=== PATIENT | female | born 1985 | race Caucasian/White ===

== ENCOUNTER → 2016-09-23 | Outpatient (CLI) | payer MEDICARE, OTHER ==
[2016-09-23 17:01] VITALS: BMI 58.3
[2016-09-23 17:51] LABS: CHCM 31.4; HDW 2.91; HGB 11.8 gm/dL (11.4-16.0); Hypochromasia Slight; MCH 23.8 pg (25.0-35.0); MCV 76.9 fL (80.0-100.0); Mean Platelet Volume 6.5; Microcytosis Slight; RBC 4.94 m/uL (3.80-5.40); RDW 15.5 % (11.5-15.5); WBC 10.5 k/uL (3.8-10.6)
[2016-09-23 18:06] LABS: Partial Thromboplastin Time 24.9 sec (22.0-30.0)
[2016-09-23 18:08] LABS: ALT 31 U/L (9-52); AST 17 U/L (14-36); Alkaline Phosphatase 85 U/L (38-126); Anion Gap 13 mmol/L; Blood Urea Nitrogen 14 mg/dL (7-17); Carbon Dioxide 25 mmol/L (22-30); Chloride 105 mmol/L (98-107); Cholesterol 149 mg/dL (<200); Glucose 91 mg/dL (74-99); HDL Cholesterol 41 mg/dL (40-60); Iron 29 ug/dL (37-170); Non-African American GFR(MDRD) >60 (>60 ml/min/1.73 sqM); Phosphorous 3.9 mg/dL (2.5-4.5); Potassium 4.1 mmol/L (3.5-5.1); Sodium 143 mmol/L (137-145); Total Bilirubin 0.4 mg/dL (0.2-1.3); Total Protein 7.8 g/dL (6.3-8.2); Triglycerides 118 mg/dL (<150)
[2016-09-23 18:19] LABS: % Iron Saturation 10.3 % (20-50); Prealbumin 18 mg/dL (18-36); Total Iron Binding Capacity 281 ug/dL (265-497)
[2016-09-23 18:59] LABS: Hemoglobin A1C 5.3 % (4.2-6.1)
[2016-09-23 19:14] LABS: Vitamin B12 608 pg/mL (239-931)
--- NOTE | 2016-09-25 11:11 | CONS ---
DATE OF CONSULTATION: 09/23/2016 CHIEF COMPLAINT: Bariatric assessment. HISTORY OF PRESENT ILLNESS: Lety De La Rosa is a 31-year-old female who is status post sleeve gastrectomy in [facility] in 2013. At her height of 5 feet 10-1/4 inch, her highest weight was 489 pounds. Today she comes weighing 409 pounds. She has maintained an 80 pound weight loss since her procedure 2 to 3 years ago. Her ideal body weight is 173 pounds. Body mass index has been reduced from 69.3 down to 58. She still is 236 pound overweight. Now she presents to resume care at a bariatric center. She reports epigastric abdominal pain. She denies any dysphagia with solid foods. She does report eating high carbohydrate, high caloric foods. Her lowest weight since her sleeve has been 400 pounds, now with weight regain. Her personal goal is to get down between 160 to 173 pounds. Now she presents for further evaluation and management. PAST MEDICAL HISTORY: 1. Morbid obesity. 2. Iron deficiency anemia. 3. Hypertensive heart disease. 4. Gastroesophageal reflux disease. 5. Depression. 6. Asthma. PAST SURGICAL HISTORY: 1. Sleeve gastrectomy in July 2013. 2. section. 3. Cholecystectomy. MEDICATIONS: 1. Multivitamin. 2. Iron. 3. Lasix. 4. Omeprazole. 5. Vitamin D. 6. Gabapentin. 7. Cymbalta. 8. Benjamin 10. ALLERGIES: IBUPROFEN. 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 FAMILY HISTORY: Pertinent for diabetes including morbid obesity. REVIEW OF SYSTEMS: CONSTITUTIONAL: [place] body weight of 173 pounds for her 5 foot 10-1/4 inch frame. Highest weight of 489 pounds. Lowest weight of 400 pounds after her sleeve. She has gained 9 pounds. Present weight of 409 pounds. Body mass index reduced from 69.3 down to 58. HEENT: She wears glasses. No reports of troubles with hearing or nasal drainage. No reports of active dysphagia to solid foods. RESPIRATORY: Has prior history of obstructive sleep apnea. Denies any active dyspnea on exertion. CARDIOVASCULAR: History of hypertension. No recent palpitations. GASTROINTESTINAL: History gastroesophageal reflux disease. Gallbladder is already removed. Denies any fatty food intolerance. MUSCULOSKELETAL: Diffuse osteoarthritis especially of the knees and hips. NEURO: No reports of stroke or seizure disorder. PSYCH: No reports of depression or suicidal ideation. HEMATOLOGIC: Denies any DVTs. PHYSICAL EXAM: VITAL SIGNS: Within normal limits. GENERAL: Well-developed, pleasant female in no acute distress. HEENT: No scleral icterus. Extraocular movements grossly intact. No nasal drainage. NECK: Supple without lymphadenopathy. CHEST: Nonlabored respirations, equal bilateral excursions. CARDIOVASCULAR: Regular rate and rhythm. ABDOMEN: Obese, protuberant, soft. Focal tenderness along the epigastrium. NEURO: No focal or lateralizing signs. Cranial nerves II through XII grossly within normal limits. PSYCH: Appropriate affect. Alert and oriented to person, place, and time. LABS: Bariatric metabolic panel obtained demonstrating hemoglobin low at 11.8. MCV low at 76.9. MCHC low at 23.8. Iron is low at 29. Percent iron saturation was low at 10.3. Vitamin D is low at 23.5. Trace elements are pending. ASSESSMENT: 1. Morbid obesity due to excess calories. 2. Body mass index reduced from 69.3 to 58. 3. Status post sleeve gastrectomy, now with weight gain. 4. Hypertension. 5. Right upper quadrant pain. 6. Epigastric abdominal pain. 7. Dietary surveillance and counseling. 8. Iron deficiency anemia. 9. Vitamin D deficiency. PLAN: 1. She is obtaining bariatric metabolic panel with findings consistent of iron deficiency anemia as well as Vitamin D deficiency. As she is a sleeve gastrectomy patient I recommend iron infusion therapy for absorption. 2. I have gone over her food choices, which are high carbohydrate foods. She reports that she is watching calories and is not really focused on a consistent amount of protein. I have asked her to really focus on eating her protein rather than just relying on protein shakes. 3. She requires re-education regarding her bariatric lifestyle for which weight loss can still be attainable with strict monitoring and surveillance. 4. She is seeking to lose over 200+ pounds. As she reports epigastric abdominal pain I recommend proceeding with an upper endoscopy. I have reviewed with her that potentially hiatal hernia should be present, then she will likely need surgical correction. 5. Goal protein intake was again re-iterated to be at least 80 grams daily. 6. Recommend follow-up in approximately 3 weeks with a dietary food journal. [facility]
[2016-10-01 18:11] LABS: Selenium 160 mcg/L (63-160)
== END | disposition home or self-care (01) ==
LOC: BARWHC3 15:00
PROVIDERS: ATTEND Surgery Plastic and Reconstructive Surgery
DX: Z48.815 Encounter for surgical aftercare following surgery on the digestive system (principal); E66.01 Morbid (severe) obesity due to excess calories; Z68.43 Body mass index [BMI] 50.0-59.9, adult; Z98.84 Bariatric surgery status; I10 Essential (primary) hypertension; R10.11 Right upper quadrant pain; R10.13 Epigastric pain; Z71.3 Dietary counseling and surveillance; E55.9 Vitamin D deficiency, unspecified; D50.9 Iron deficiency anemia, unspecified; Z79.899 Other long term (current) drug therapy
CPT/HCPCS: 84255; 84134; 84425; 80061; 80053; 82607; 82728; 83036; 82525; 82746; 83540; 83550; 83735; 84100; 84443; 84590; 84630; 85027; 85610; 85730; 82306; 83970; 36415; G0463; 99211

== ENCOUNTER → 2016-10-01 | Outpatient (CLI) | payer MEDICARE, OTHER ==
--- NOTE | 2016-10-01 12:16 | FL ---
EXAMINATION TYPE: FL barium swallow DATE OF EXAM: 10/01/2016 11:28 AM CLINICAL HISTORY: R13.10 DYSPHAGIA,R10.84 ABDOMINAL PAIN Contrast: Omnipaque 350 50 mL The patient ingested contrast without difficulty or delay. Noted are postsurgical changes of gastric sleeve. There is no evidence for leak or obstruction. Contrast is noted within the duodenum. S zoey contrast cervical esophagram reveals no evidence for aspiration or penetration. No evidence for mass or obstruction. No extrinsic mass effect. IMPRESSION: gastric sleeve without evidence for obstruction or leak at this point in time.
== END | disposition home or self-care (01) ==
LOC: RADFLWHC 10:53
PROVIDERS: ATTEND Surgery Plastic and Reconstructive Surgery
DX: R13.10 Dysphagia, unspecified (principal); R10.84 Generalized abdominal pain
CPT/HCPCS: 74220

== ENCOUNTER 2016-10-05 10:49 | Day surgery (SDC) | payer MEDICARE, OTHER ==
[2016-10-02 09:06] VITALS: BMI 58.1
--- NOTE | 2016-10-05 06:26 | P.GSHP ---
History of Present Illness H&P Date: 10/05/16 CHIEF COMPLAINT: GERD HISTORY OF PRESENT ILLNESS: The patient is a 31-year-old male who presents reports gastroesophageal reflux disease with epigastric abdominal pain. Upper endoscopy was offered for further evaluation and management. PAST MEDICAL HISTORY: Please see list. PAST SURGICAL HISTORY: Please see list. MEDICATIONS: Please see list. ALLERGIES: Please see list. SOCIAL HISTORY: No illicit drug use FAMILY HISTORY: No reports of Crohn disease or ulcerative colitis. REVIEW OF ORGAN SYSTEMS: CONSTITUTIONAL: No reports of fevers or chills. GI: Denies any blood in stools or constipation. PHYSICAL EXAM: VITAL SIGNS: Stable GENERAL: Well-developed and pleasant in no acute distress. HEENT: No scleral icterus. Extraocular movements grossly intact. Moist buccal mucosa. NECK: Supple without lymphadenopathy. CHEST: Unlabored respirations. Equal bilateral excursions. CARDIOVASCULAR: Regular rate and rhythm. Distal 2+ pulses. ABDOMEN: Soft, nondistended. MUSCULOSKELETAL: No clubbing, cyanosis, or edema. ASSESSMENT: 1. Gastroesophageal reflux disease 2. Epigastric abdominal pain. PLAN: 1. Recommend proceeding with an upper endoscopy with balloon dilation. Past Medical History Past Medical History: Asthma, GERD/Reflux, Hypertension History of Any Multi-Drug Resistant Organisms: None Reported Past Surgical History: Bariatric Surgery, Section, Cholecystectomy Additional Past Surgical History / Comment(s): sleeve gastrectomy 11-13 Past Anesthesia/Blood Transfusion Reactions: No Reported Reaction Past Psychological History: Depression Smoking Status: Never smoker Past Alcohol Use History: None Reported Past Drug Use History: None Reported - Past Family History Mother Family Medical History: No Reported History Medications and Allergies Home Medications Medication Instructions Recorded Confirmed Type DULoxetine HCL [Cymbalta] 1 tab PO DAILY 09/23/16 10/02/16 History Furosemide [Lasix] 1 tab PO DAILY 09/23/16 10/02/16 History Gabapentin 1 tab PO TID 09/23/16 10/02/16 History HYDROcodone/APAP 10-325MG [[place] 1 tab PO TID 09/23/16 10/02/16 History 10-325] Multivitamins, Thera [Multivitamin] 1 tab PO DAILY 09/23/16 10/02/16 History Omeprazole 1 tab PO BID 09/23/16 10/02/16 History Ergocalciferol [Vitamin D2 50,000 unit PO TH 10/02/16 10/02/16 History (DRISDOL)] Allergies Allergy/AdvReac Type Severity Reaction Status Date / Time ibuprofen [From Motrin] Allergy Swelling Verified 10/02/16 08:41
[~2016-10-05 10:49] MED LIST: LACTATED RINGERS 1,000 ML IV SCH
[2016-10-05 11:10] VITALS: RESP 18; TEMP 97.1
[2016-10-05] MEDS ORDERED: SODIUM CHLORIDE 0.9% 2,000 ML IV ONE (11:11)
[2016-10-05] MEDS ORDERED: LIDOCAINE 1% 20 ML VIAL (10MG/ML) FOR IV START INTRADERMA ONE (11:18)
[2016-10-05] MEDS ORDERED: LIDOCAINE 1% INJ 10MG/ML (20 ML MDV) ONE (11:29)
[2016-10-05] MEDS ORDERED: MIDAZOLAM 2 MG/2 ML VIAL ONE (11:29)
[2016-10-05] MEDS ORDERED: fentaNYL (PF) 50 MCG/ML 2 ML AMP ONE (11:29)
[2016-10-05] MEDS ORDERED: KETAMINE 10 MG/ML 20 ML VIAL ONE (11:29)
[2016-10-05] MEDS ORDERED: PROPOFOL 10 MG/ML 20 ML VIAL IV ONE (11:29)
--- NOTE | 2016-10-05 11:47 | P.PCN ---
Date of Procedure: 10/05/16 Description of Procedure: PREOPERATIVE DIAGNOSIS: Status post sleeve gastrectomy. Gastroesophageal reflux disease. Epigastric abdominal pain. POSTOPERATIVE DIAGNOSIS: Status post sleeve gastrectomy. Gastroesophageal reflux disease. Epigastric abdominal pain. Erosive esophagitis, chronic. Diaphragmatic hiatal hernia without obstruction. Chronic superficial gastritis. OPERATION: Esophagogastroduodenoscopy with cold forceps biopsies along the antrum. SURGEON: Natalia Ambrocio MD ANESTHESIA: MAC. INDICATIONS: The patient is a 31-year-old female who presents with a history of sleeve gastrectomy with abdominal pain. She is over 3 years out from her bariatric procedure. Benefits and risks of the procedure were described. Informed consent was obtained. DESCRIPTION: The patient was brought into the endoscopy suite and laid in the left lateral decubitus position. An Olympus gastroscope was passed along the posterior oropharynx down to the distal esophagus where the squamocolumnar junction was at 40 centimeters from the incisors remarkable for chronic erosive esophagitis, LA grade A without ulceration. The stomach was entered where she had a 2-cm hiatal hernia with a diaphragmatic hiatus found at 43 cm. The sleeve reservoir moderately large allowing easy retroflexion of the scope to view the lower esophageal valve. Chronic gastritis albeit mild was found along the antrum with cold biopsies obtained. Retained gastric cardia was identified. The first through third portion of the duodenum was examined and unremarkable. The scope again had easily retroflexed along the antrum. The stomach was desufflated. The patient tolerated the procedure well. FINDINGS: No acute ulceration found along her sleeve. No corkscrewing sleeve gastrectomy. Squamocolumnar junction at 40 cm from the incisors. Diaphragmatic hiatus at 43 cm. Moderate large gastric reservoir with prior history of sleeve gastrectomy allowing easy retroflexion of the gastroscope to view the lower esophageal valve. Hiatal hernia 3 cm, fixed. LA grade A erosive esophagitis. No active duodenitis. Chronic gastritis. RECOMMENDATIONS: Upper endoscopy as needed. May benefit from antireflux operation. Continue with current therapy. Plan - Discharge Summary Discharge Medication List DULoxetine HCL [Cymbalta] 1 tab PO DAILY 09/23/16 [History] Furosemide [Lasix] 1 tab PO DAILY 09/23/16 [History] Gabapentin 1 tab PO TID 09/23/16 [History] HYDROcodone/APAP 10-325MG [[place] 10-325] 1 tab PO TID 09/23/16 [History] Multivitamins, Thera [Multivitamin] 1 tab PO DAILY 09/23/16 [History] Omeprazole 1 tab PO BID 09/23/16 [History] Zinc Gluconate [Zinc] 50 mg PO DAILY@1200 #60 tablet 09/30/16 [Rx] Ergocalciferol [Vitamin D2 (DRISDOL)] 50,000 unit PO TH 10/02/16 [History] Follow up Appointment(s)/Referral(s): Natalia Ambrocio MD [STAFF PHYSICIAN] - 10/21/16 Patient Instructions/Handouts: *[facility] - (Anesthesia) Endoscopy Discharge Instructions, Hiatal Hernia (DC), Upper Endoscopy (GEN) Discharge Disposition: HOME SELF-CARE
[2016-10-05] MEDS ORDERED: LACTATED RINGERS 1,000 ML IV ONE (12:30)
[2016-10-05] MEDS ORDERED: SODIUM CHLORIDE 0.9% 1,000 ML IV ONE ×2 (12:30→14:09)
[2016-10-05 12:36] VITALS: PULSE 56
[2016-10-05 13:16] VITALS: BP 117/71
== END 2016-10-05 15:54 | disposition home or self-care (01) ==
LOC: ORWHC2ENDO 10:49
PROVIDERS: ATTEND Surgery Plastic and Reconstructive Surgery
DX: K29.30 Chronic superficial gastritis without bleeding (principal); K21.0 Gastro-esophageal reflux disease with esophagitis; K44.9 Diaphragmatic hernia without obstruction or gangrene; Z98.84 Bariatric surgery status; I10 Essential (primary) hypertension; J45.909 Unspecified asthma, uncomplicated; F32.9 Major depressive disorder, single episode, unspecified; Z79.891 Long term (current) use of opiate analgesic; Z79.899 Other long term (current) drug therapy; Z88.8 Allergy status to other drugs, medicaments and biological substances
CPT/HCPCS: 81025; 88305; 88342; 43239; J2250; J2001; J3010; J2704

== ENCOUNTER → 2016-10-14 | Outpatient (CLI) | payer MEDICARE, OTHER ==
[2016-10-14 16:00] VITALS: BP 138/89; PULSE 79; RESP 18; TEMP 98; BMI 58.8
--- NOTE | 2016-10-18 17:50 | P.PN ---
Progress Note - Text DATE OF SERVICE: 10/14/2016 CHIEF COMPLAINT: Chronic abdominal pain following sleeve gastrectomy. HISTORY OF PRESENT ILLNESS: Lety De La Rosa is a 31-year-old female who reports having a sleeve gastrectomy performed at the [facility] in 2013. Her father is at bedside. She actually had gone to the emergency room approximately a little over 1 to 2 weeks ago after start of iron IV infusion. She had immediate anaphylactic reaction and as a result was treated. Separately, she reports chronic epigastric abdominal pain especially gastroesophageal reflux disease. She takes chronic pain meds as a result from her chronic epigastric abdominal pain. Separately, she reports inadequate protein intake. She has difficulty with her protein shakes. Her highest weight for her 5 feet 10-1/4 inches frame is 489 pounds. Today she comes in weighing 413 pounds. She has gained at least another 3 pounds in 2 to 3 weeks. Her ideal body weight is 173 pounds. She is still 240 pounds overweight. She has only achieved 24% excess weight loss. Body mass index is reduced from 70 down to 58.9. Total BMI point reduction is 11 points. Now she presents for further surgical intervention. She has also completed an upper endoscopy with findings consistent with a malfunction of her sleeve as well. PAST MEDICAL HISTORY: 1. Morbid obesity. 2. Iron deficiency anemia. 3. Hypertensive heart disease. 4. Gastroesophageal reflux disease. 5. Depression. 6. Asthma. 7. Chronic pain. PAST SURGICAL HISTORY: 1. Sleeve gastrectomy in July 2013. 2. section. 3. Cholecystectomy. 4. Upper endoscopy. MEDICATIONS: 1. Multivitamin. 2. Iron. 3. Lasix. 4. Omeprazole. 5. Vitamin D. 6. Gabapentin. 7. Cymbalta. 8. [place] 10. ALLERGIES: IBUPROFEN. 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 FAMILY HISTORY: Pertinent for diabetes including morbid obesity. REVIEW OF SYSTEMS: GASTROINTESTINAL: Has severe gastroesophageal reflux disease including diaphragmatic hiatal hernia. Cholecystectomy already performed. CONSTITUTIONAL: Current weight 413 pounds. Weight gain of 3 pounds in 3 weeks. Total maintained weight loss of only 76 pounds. Percent excess weight loss is 24%. Body mass index reduced from 70 down to 58.9. Total BMI point reduction of 11 points. HEENT: She wears glasses. No reports of troubles with hearing or nasal drainage. No reports of active dysphagia to solid foods. RESPIRATORY: Has prior history of obstructive sleep apnea. Denies any active dyspnea on exertion. CARDIOVASCULAR: History of hypertension. No recent palpitations. MUSCULOSKELETAL: Diffuse osteoarthritis especially of the knees and hips. NEURO: No reports of stroke or seizure disorder. PSYCH: No reports of depression or suicidal ideation. HEMATOLOGIC: Denies any DVTs. PHYSICAL EXAM: VITAL SIGNS: 98.0, 79, 18, 138/89, 5 feet 10-1/4 inches, 413 pounds. Body mass index of 58.9. ABDOMEN: Mild tenderness along the epigastrium. No diffuse peritonitis. Moderate centripetal obesity with moderate size pannus. GENERAL: Well-developed, pleasant female in no acute distress. HEENT: No scleral icterus. Extraocular movements grossly intact. No nasal drainage. NECK: Supple without lymphadenopathy. CHEST: Nonlabored respirations, equal bilateral excursions. CARDIOVASCULAR: Regular rate and rhythm. NEURO: No focal or lateralizing signs. Cranial nerves II through XII grossly within normal limits. PSYCH: Appropriate affect. Alert and oriented to person, place, and time. LABS: Bariatric metabolic panel is reviewed demonstrating hemoglobin was low at 11.8. MCV was low at 76.9. MCH is low at 23.8. Hyperchromasia identified. Magnesium was normal at 2.0. Iron was low at 29. Percent iron saturation was low at 10.3. Vitamin A was not obtained. Vitamin D was low at 23.5. Zinc was low at 59. ASSESSMENT: 1. Morbid obesity due to excess calories. 2. Body mass index reduced from 70 to 58.9. 3. Weight gain following bariatric procedure. 4. Epigastric abdominal pain. 5. 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 6. Gastroesophageal reflux disease. 7. Hypertensive heart disease. 8. History of obstructive sleep apnea. 9. Chronic pain syndrome. 10. Diaphragmatic hiatal hernia. 11. Iron deficiency anemia. 12. Vitamin D deficiency. 13. Zinc deficiency. 14. Dietary surveillance and counseling. PLAN: 1. She has just started on zinc including vitamin D supplement. 2. As she has mechanical malfunction of her sleeve gastrectomy, recommend corrective procedure. 3. Alternatives including revision of her sleeve was described, however, given the severity of her gastroesophageal reflux disease alternatives such as a Savi-en-Y gastric bypass was reviewed. Upon discussion with her family, she has elected for revision to a Savi-en-Y gastric bypass to also address her underlying gastroesophageal reflux disease and correction of her diaphragmatic hiatal hernia. 4. She needs structured dietary surveillance and counseling. 5. In the interim, primarily liquids or blenderized foods is advised. 6. Recommend followup with the bariatric dietitian as well.
== END | disposition home or self-care (01) ==
LOC: BARWHC3 14:12
PROVIDERS: ATTEND Surgery Plastic and Reconstructive Surgery
DX: Z48.815 Encounter for surgical aftercare following surgery on the digestive system (principal); E66.01 Morbid (severe) obesity due to excess calories; Z68.43 Body mass index [BMI] 50.0-59.9, adult; Z98.84 Bariatric surgery status; Z79.899 Other long term (current) drug therapy; Z88.8 Allergy status to other drugs, medicaments and biological substances; R10.13 Epigastric pain; T85.9XXA Unspecified complication of internal prosthetic device, implant and graft, initial encounter; K21.9 Gastro-esophageal reflux disease without esophagitis; I11.9 Hypertensive heart disease without heart failure; G47.33 Obstructive sleep apnea (adult) (pediatric); G89.4 Chronic pain syndrome; K44.9 Diaphragmatic hernia without obstruction or gangrene; D50.9 Iron deficiency anemia, unspecified; E55.9 Vitamin D deficiency, unspecified; E60 Dietary zinc deficiency; F32.9 Major depressive disorder, single episode, unspecified
CPT/HCPCS: 99211

== ENCOUNTER 2016-10-16 07:37 | Observation (INO) | payer MEDICARE, OTHER ==
[2016-10-16] MEDS ORDERED: SODIUM CHLORIDE 0.9% 2,000 ML IV STA (08:03)
[2016-10-16] MEDS ORDERED: SODIUM CHLORIDE 0.9% 1,000 ML IV STA (08:03)
[2016-10-16] MEDS ORDERED: HYDROmorphone 1 MG/ML 1 ML SYRINGE IVP STA (08:03)
[2016-10-16] MEDS ORDERED: RX INFO: IV CONTRAST WAS GIVEN 1 EACH MISC MISCELLANE PRN (08:04)
[2016-10-16] MEDS ORDERED: IOHEXOL 350 MG/ML 25 ML BOTTLE (ORAL USE) PO PRN (08:04)
--- NOTE | 2016-10-16 08:09 | ED ---
Abdominal Pain HPI - General Chief Complaint: Abdominal Pain Stated Complaint: abd pain Time Seen by Provider: 10/16/16 07:50 Source: patient, family, RN/MD, RN notes reviewed Mode of arrival: ambulatory Limitations: no limitations - History of Present Illness Initial Comments: This is a 31-year-old female with a history of a gastric sleeve done about 3 years ago in [facility] who was apparently has had episodes of nausea vomiting since that time and presents today because of intractable nausea vomiting upper abdominal pain and dehydration symptoms. Patient was evaluated by Dr. Powell about a week ago with a EGD. I did discuss the case with Dr. Powell prior to evaluation. She's had very minimal weight loss since the gastric sleeve 3 years ago. She states that he likely eat or drink she hurts to talk. She's had diarrhea. She doesn't history of hypertension asthma GERD and hiatal hernia. MD Complaint: abdominal pain, other - Related Data Home Medications Medication Instructions Recorded Confirmed DULoxetine HCL [Cymbalta] 30 mg PO DAILY 09/23/16 10/16/16 Furosemide [Lasix] 40 mg PO DAILY 09/23/16 10/16/16 Gabapentin 600 mg PO TID 09/23/16 10/16/16 HYDROcodone/APAP 10-325MG [[place] 1 tab PO TID 09/23/16 10/16/16 10-325] Multivitamins, Thera [Multivitamin] 1 tab PO DAILY 09/23/16 10/16/16 Omeprazole 20 mg PO BID 09/23/16 10/16/16 Ergocalciferol [Vitamin D2 50,000 unit PO TH 10/02/16 10/16/16 (DRISDOL)] Previous Rx's Medication Instructions Recorded Zinc Gluconate [Zinc] 50 mg PO DAILY@1200 #60 tablet 09/30/16 Allergies Allergy/AdvReac Type Severity Reaction Status Date / Time ibuprofen [From Motrin] Allergy Swelling Verified 10/16/16 07:45 iron Allergy Anaphylaxis Verified 10/16/16 07:45 Review of Systems ROS Statement: Those systems with pertinent positive or pertinent negative responses have been documented in the HPI. ROS Other: All systems not noted in ROS Statement are negative. Past Medical History Past Medical History: Asthma, GERD/Reflux, Hypertension History of Any Multi-Drug Resistant Organisms: None Reported Past Surgical History: Bariatric Surgery, Section, Cholecystectomy Additional Past Surgical History / Comment(s): sleeve gastrectomy 11-13, HIATAL HERNIA Past Anesthesia/Blood Transfusion Reactions: No Reported Reaction Past Psychological History: Depression Smoking Status: Never smoker Past Alcohol Use History: None Reported Past Drug Use History: None Reported General Exam - General Exam Comments Initial Comments: This is a well-developed morbidly obese female actively retching during the exam. Limitations: no limitations General appearance: alert, in no apparent distress Head exam: Present: atraumatic, normocephalic, normal inspection Eye exam: Present: normal appearance, PERRL, EOMI. Absent: scleral icterus, conjunctival injection, periorbital swelling ENT exam: Present: mucous membranes dry Neck exam: Present: normal inspection, other (No stridor JVD or bruits). Absent : tenderness, meningismus, lymphadenopathy Respiratory exam: Present: normal lung sounds bilaterally. Absent: respiratory distress, wheezes, rales, rhonchi, stridor Cardiovascular Exam: Present: normal rhythm, tachycardia, normal heart sounds. Absent: systolic murmur, diastolic murmur, rubs, gallop, clicks GI/Abdominal exam: Present: soft, tenderness (Epigastric tenderness no guarding or rebound she does demonstrate morgue obesity.), normal bowel sounds. Absent: distended, guarding, rebound, rigid, bruit, pulsatile mass Rectal exam: Present: deferred Extremities exam: Present: normal inspection, full ROM, normal capillary refill. Absent: tenderness, pedal edema, joint swelling, calf tenderness Back exam: Present: normal inspection Neurological exam: Present: alert, oriented X3, CN II-XII intact Psychiatric exam: Present: anxious Skin exam: Present: warm, dry, intact, normal color. Absent: rash Course Vital Signs 10/16/16 10/16/16 10/16/16 07:40 10:01 13:06 Temperature 97.8 F 98.5 F Pulse Rate 115 H 94 88 Respiratory 20 18 18 Rate Blood Pressure 163/67 124/62 148/66 O2 Sat by Pulse 100 95 96 Oximetry - Reevaluation(s) Reevaluation #1: 10/16/16 09:39 Patient initially complains some chest pain after the Dilaudid was given it quickly resolved EKG shows no acute changes other than slight tachycardia. Medical Decision Making - Medical Decision Making Patient was reevaluated and Dr. Powell did come to see the patient on 2 occasions the patient will be admitted for observation for IV hydration and pain control nausea control. - Lab Data Result diagrams: 10/16/16 08:14 10/16/16 08:14 Lab Results 10/16/16 10/16/16 10/16/16 Range/Units 08:14 08:14 08:14 WBC 9.0 (3.8-10.6) k/uL RBC 5.83 H (3.80-5.40) m/uL Hgb 13.8 (11.4-16.0) gm/dL Hct 44.4 (34.0-46.0) % MCV 76.1 L (80.0-100.0) fL MCH 23.6 L (25.0-35.0) pg MCHC 31.0 (31.0-37.0) g/dL RDW 15.6 H (11.5-15.5) % Plt Count 243 (150-450) k/uL Neutrophils % 87 % Lymphocytes % 5 % Monocytes % 4 % Eosinophils % 1 % Basophils % 0 % Neutrophils # 7.8 H (1.3-7.7) k/uL Lymphocytes # 0.5 L (1.0-4.8) k/uL Monocytes # 0.4 (0-1.0) k/uL Eosinophils # 0.1 (0-0.7) k/uL Basophils # 0.0 (0-0.2) k/uL Hypochromasia Moderate Microcytosis Slight PT (9.0-12.0) sec INR (<1.1) APTT (22.0-30.0) sec Sodium 144 (137-145) mmol/L Potassium 4.3 (3.5-5.1) mmol/L Chloride 103 (98-107) mmol/L Carbon Dioxide 27 (22-30) mmol/L Anion Gap 14 mmol/L BUN 16 (7-17) mg/dL Creatinine 0.74 (0.52-1.04) mg/dL Est GFR (MDRD) Af Amer >60 (>60 ml/min/1.73 sqM) Est GFR (MDRD) Non-Af >60 (>60 ml/min/1.73 sqM) Glucose 124 H (74-99) mg/dL Plasma Lactic Acid Brad (0.7-2.0) mmol/L Calcium 9.4 (8.4-10.2) mg/dL Magnesium 1.9 (1.6-2.3) mg/dL Total Bilirubin 1.0 (0.2-1.3) mg/dL AST 18 (14-36) U/L ALT 28 (9-52) U/L Alkaline Phosphatase 104 (38-126) U/L Total Creatine Kinase 74 (30-135) U/L CK-MB (CK-2) <0.2 (0.0-2.4) ng/mL CK-MB (CK-2) Rel Index Troponin I <0.012 (0.000-0.034) ng/mL Total Protein 8.6 H (6.3-8.2) g/dL Albumin 4.5 (3.5-5.0) g/dL Amylase 59 (30-110) U/L Lipase 173 (23-300) U/L Urine Color Urine Appearance (Clear) Urine pH (5.0-8.0) Ur Specific [place] (1.001-1.035) Urine Protein (Negative) Urine Glucose (UA) (Negative) Urine Ketones (Negative) Urine Blood (Negative) Urine Nitrate (Negative) Urine Bilirubin (Negative) Urine Urobilinogen (<2.0) mg/dL Ur Leukocyte Esterase (Negative) Urine RBC (0-5) /hpf Urine WBC (0-5) /hpf Ur Squamous Epith Cells (0-4) /hpf Urine Bacteria (None) /hpf Urine Mucus (None) /hpf Urine HCG, Qual (Not Detectd) C. difficile (EIA) Intrp (Negative) 10/16/16 10/16/16 10/16/16 Range/Units 08:14 09:52 10:32 WBC (3.8-10.6) k/uL RBC (3.80-5.40) m/uL Hgb (11.4-16.0) gm/dL Hct (34.0-46.0) % MCV (80.0-100.0) fL MCH (25.0-35.0) pg MCHC (31.0-37.0) g/dL RDW (11.5-15.5) % Plt Count (150-450) k/uL Neutrophils % % Lymphocytes % % Monocytes % % Eosinophils % % Basophils % % Neutrophils # (1.3-7.7) k/uL Lymphocytes # (1.0-4.8) k/uL Monocytes # (0-1.0) k/uL Eosinophils # (0-0.7) k/uL Basophils # (0-0.2) k/uL Hypochromasia Microcytosis PT 10.8 (9.0-12.0) sec INR 1.1 (<1.1) APTT 25.1 (22.0-30.0) sec Sodium (137-145) mmol/L Potassium (3.5-5.1) mmol/L Chloride (98-107) mmol/L Carbon Dioxide (22-30) mmol/L Anion Gap mmol/L BUN (7-17) mg/dL Creatinine (0.52-1.04) mg/dL Est GFR (MDRD) Af Amer (>60 ml/min/1.73 sqM) Est GFR (MDRD) Non-Af (>60 ml/min/1.73 sqM) Glucose (74-99) mg/dL Plasma Lactic Acid Brad 1.1 (0.7-2.0) mmol/L Calcium (8.4-10.2) mg/dL Magnesium (1.6-2.3) mg/dL Total Bilirubin (0.2-1.3) mg/dL AST (14-36) U/L ALT (9-52) U/L Alkaline Phosphatase (38-126) U/L Total Creatine Kinase (30-135) U/L CK-MB (CK-2) (0.0-2.4) ng/mL CK-MB (CK-2) Rel Index Troponin I (0.000-0.034) ng/mL Total Protein (6.3-8.2) g/dL Albumin (3.5-5.0) g/dL Amylase (30-110) U/L Lipase (23-300) U/L Urine Color Yellow Urine Appearance Cloudy H (Clear) Urine pH 6.5 (5.0-8.0) Ur Specific [place] 1.020 (1.001-1.035) Urine Protein Trace H (Negative) Urine Glucose (UA) Negative (Negative) Urine Ketones Negative (Negative) Urine Blood Trace H (Negative) Urine Nitrate Positive H (Negative) Urine Bilirubin Negative (Negative) Urine Urobilinogen <2.0 (<2.0) mg/dL Ur Leukocyte Esterase Small H (Negative) Urine RBC 2 (0-5) /hpf Urine WBC 4 (0-5) /hpf Ur Squamous Epith Cells 6 H (0-4) /hpf Urine Bacteria Moderate H (None) /hpf Urine Mucus Moderate H (None) /hpf Urine HCG, Qual (Not Detectd) C. difficile (EIA) Intrp (Negative) 10/16/16 10/16/16 Range/Units 10:32 10:32 WBC (3.8-10.6) k/uL RBC (3.80-5.40) m/uL Hgb (11.4-16.0) gm/dL Hct (34.0-46.0) % MCV (80.0-100.0) fL MCH (25.0-35.0) pg MCHC (31.0-37.0) g/dL RDW (11.5-15.5) % Plt Count (150-450) k/uL Neutrophils % % Lymphocytes % % Monocytes % % Eosinophils % % Basophils % % Neutrophils # (1.3-7.7) k/uL Lymphocytes # (1.0-4.8) k/uL Monocytes # (0-1.0) k/uL Eosinophils # (0-0.7) k/uL Basophils # (0-0.2) k/uL Hypochromasia Microcytosis PT (9.0-12.0) sec INR (<1.1) APTT (22.0-30.0) sec Sodium (137-145) mmol/L Potassium (3.5-5.1) mmol/L Chloride (98-107) mmol/L Carbon Dioxide (22-30) mmol/L Anion Gap mmol/L BUN (7-17) mg/dL Creatinine (0.52-1.04) mg/dL Est GFR (MDRD) Af Amer (>60 ml/min/1.73 sqM) Est GFR (MDRD) Non-Af (>60 ml/min/1.73 sqM) Glucose (74-99) mg/dL Plasma Lactic Acid Brad (0.7-2.0) mmol/L Calcium (8.4-10.2) mg/dL Magnesium (1.6-2.3) mg/dL Total Bilirubin (0.2-1.3) mg/dL AST (14-36) U/L ALT (9-52) U/L Alkaline Phosphatase (38-126) U/L Total Creatine Kinase (30-135) U/L CK-MB (CK-2) (0.0-2.4) ng/mL CK-MB (CK-2) Rel Index Troponin I (0.000-0.034) ng/mL Total Protein (6.3-8.2) g/dL Albumin (3.5-5.0) g/dL Amylase (30-110) U/L Lipase (23-300) U/L Urine Color Urine Appearance (Clear) Urine pH (5.0-8.0) Ur Specific [place] (1.001-1.035) Urine Protein (Negative) Urine Glucose (UA) (Negative) Urine Ketones (Negative) Urine Blood (Negative) Urine Nitrate (Negative) Urine Bilirubin (Negative) Urine Urobilinogen (<2.0) mg/dL Ur Leukocyte Esterase (Negative) Urine RBC (0-5) /hpf Urine WBC (0-5) /hpf Ur Squamous Epith Cells (0-4) /hpf Urine Bacteria (None) /hpf Urine Mucus (None) /hpf Urine HCG, Qual Not Detected (Not Detectd) C. difficile (EIA) Intrp Negative (Negative) - EKG Data -: EKG Interpreted by Ut EKG shows normal: sinus rhythm (Sinus tachycardia rate of 102. Interval 184 QRS duration 92 QT/QTC of 320/417 minimal voltage criteria for LVH.) - Radiology Data Radiology results: report reviewed (Did review the imaging and reports no definite acute findings), image reviewed Disposition Clinical Impression: Intractable vomiting with nausea Disposition: ADMITTED IP TO THIS [facility] Condition: Stable
[2016-10-16] MEDS: ONDANSETRON 4 MG/2 ML VIAL IVP STA ×2 (08:22→10:29)
[2016-10-16 08:26] LABS: Basophils % (A) 0 %; CH 23.7; CHCM 31.2; Eosinophils # (A) 0.1 k/uL (0-0.7); Eosinophils % (A) 1 %; HCT 44.4 % (34.0-46.0); HDW 2.95; HGB 13.8 gm/dL (11.4-16.0); Hypochromasia Moderate; Luc # (Auto) 0.12; Luc % (Auto) 1; Lymphocytes # (A) 0.5 k/uL (1.0-4.8); Lymphocytes % (A) 5 %; MCH 23.6 pg (25.0-35.0); MCV 76.1 fL (80.0-100.0); Microcytosis Slight; Monocytes # (A) 0.4 k/uL (0-1.0); Monocytes % (A) 4 %; Neutrophils # (A) 7.8 k/uL (1.3-7.7); Neutrophils % (A) 87 %; RBC 5.83 m/uL (3.80-5.40); RDW 15.6 % (11.5-15.5); WBC (Perox) 9.56
[2016-10-16 08:35] LABS: ALT 28 U/L (9-52); AST 18 U/L (14-36); Alkaline Phosphatase 104 U/L (38-126); Amylase 59 U/L (30-110); Anion Gap 14 mmol/L; Blood Urea Nitrogen 16 mg/dL (7-17); Calcium 9.4 mg/dL (8.4-10.2); Carbon Dioxide 27 mmol/L (22-30); Chloride 103 mmol/L (98-107); Glucose 124 mg/dL (74-99); Magnesium 1.9 mg/dL (1.6-2.3); Non-African American GFR(MDRD) >60 (>60 ml/min/1.73 sqM); Potassium 4.3 mmol/L (3.5-5.1); Sodium 144 mmol/L (137-145); Total Protein 8.6 g/dL (6.3-8.2)
[2016-10-16 08:42] LABS: INR 1.1 (<1.1); Partial Thromboplastin Time 25.1 sec (22.0-30.0); Prothrombin Time 10.8 sec (9.0-12.0)
[2016-10-16 08:51] LABS: Creatine Kinase 74 U/L (30-135)
[2016-10-16 09:03] LABS: Creatine Kinase MB <0.2 ng/mL (0.0-2.4); Troponin I <0.012 ng/mL (0.000-0.034)
--- NOTE | 2016-10-16 10:12 | P.PN ---
Progress Note - Text Please see full dictated report. Patient presents as a previous sleeve gastrectomy over 3 years ago at an outside institution. No additional surgical intervention has been done for her. Her father at bedside reports over 3 years of chronic nausea and vomiting including epigastric abdominal pain. I completed a recent upper endoscopy demonstrating a hiatal hernia. Patient is chronically dehydrated as she drinks minimal water. She reports eating chicken prior to her nausea that happened 4+ hours later. I have recommended aggressive fluid IV hydration with computed tomography scan of the abdomen and pelvis pending. We'll replace electrolyte dyscrasias. Anticipated fluid hydration of over 6+ liters advised. Observation advised. Additional recommendations pending results of imaging studies.
[2016-10-16 11:31] LABS: Appearance,Urine Cloudy (Clear); Bacteria,Urine Moderate /hpf; Bilirubin,Urine Negative (Negative); Glucose,Urine (UA) Negative (Negative); Ketones,Urine Negative (Negative); Leukocyte Esterase,Urine Small (Negative); Mucus,Urine Moderate /hpf; Nitrite,Urine Positive (Negative); PH, Urine 6.5 (5.0-8.0); Particle Count 54146; Protein,Urine Trace (Negative); RBC,Urine 2 /hpf (0-5); Squamous Epithelial Cell,Urine 6 /hpf (0-4); UA Billing (MACRO vs. MICRO) MICRO; Urobilinogen,Urine <2.0 mg/dL (<2.0); WBC,Urine 4 /hpf (0-5)
--- NOTE | 2016-10-16 12:56 | CT ---
EXAMINATION TYPE: CT abdomen pelvis w con DATE OF EXAM: 10/16/2016 12:35 PM REFERENCE: NONE HISTORY: Pain HISTORY: Abdominal pain REFERENCE: NONE CT DLP: 6199.70 mGy Automated exposure control for dose reduction was used. TECHNIQUE: Helical acquisition through the abdomen and pelvis was obtained following the oral ingesti on of with Oral Contrast and following intravenous administration of 100 ml mL of Omnipaque 300. The data was reformatted in axial, coronal and sagittal projections. FINDINGS: There is minimal dependent atelectasis within the lung bases. There is no pleural or peric ardial fluid. There is been a previous gastric stapling. The liver is prominent measuring 23 cm. This is mostly due to a prominent Sakina's lobe. The spleen i s enlarged measuring 15 cm. The gallbladder has been removed. The pancreas is unremarkable. Both adrenal glands are normal. Both kidneys demonstrate function and appear morphologically normal. There is no significant retroperitoneal, iliac or inguinal adenopathy. There is follicular change within the ovaries. Uterus is unremarkable. The bladder is unremarkable. There are scattered diverticula in the sigmoid colon. There is no radiographic evidence of diverticul itis. The appendix is not visualized with certainty. Small bowel loops are normal. There is no free fluid and no free air identified. There is degenerative disc disease as well as hypertrophic spondylosis within the lumbar spine. IMPRESSION: 1. HEPATOSPLENOMEGALY. 2. POSTOPERATIVE GASTRIC STAPLING. 3. MINIMAL, UNCOMPLICATED DIVERTICULOSIS OF THE SIGMOID COLON. 4. MILD DEGENERATIVE CHANGES WITHIN THE SPINE.
[2016-10-16] MEDS ORDERED: SODIUM CHLORIDE 0.9% 1,000 ML IV ONE (13:17)
[2016-10-16] MEDS ORDERED: HYDROmorphone 1 MG/ML 1 ML SYRINGE IVP PRN (13:21)
[2016-10-16] MEDS ORDERED: ONDANSETRON 4 MG/2 ML VIAL IVP PRN (13:21)
[2016-10-16] MEDS ORDERED: SODIUM CHLORIDE 0.9% 4,000 ML IV ONE (14:30)
[2016-10-16] MEDS ORDERED: SCOPOLAMINE 1.5MG/72HR PATCH TRANSDERM STA (14:32)
--- NOTE | 2016-10-16 15:03 | P.GSHP ---
History of Present Illness H&P Date: 10/16/16 CHIEF COMPLAINT: Intractable nausea and vomiting with history of sleeve gastrectomy. HISTORY OF PRESENT ILLNESS: Lety De La Rosa is a 31-year-old female who is status post sleeve gastrectomy in [facility] in 2013. She presents as a transfer of her bariatric care to [facility]. At her height of 5 feet 10-1/4 inch, her highest weight was 489 pounds. Today she comes weighing 405 pounds. She has maintained an 84 pound weight loss since her procedure 2 to 3 years ago. Her ideal body weight is 173 pounds. Body mass index has been reduced from 69.3 down to 58.3. She still is 232 pound overweight. Additionally over the last 2-3 years, her father's at bedside reports intractable nausea and vomiting. She's had multiple admissions to the emergency room for similar complaints. She reports difficulty with drinking liquids which causes epigastric pain. She's had a floor esophagram demonstrating no obstruction. She recently had an upper endoscopy consistent with a hiatal hernia. Her father reports that her last meal was at 6 PM last evening. She then developed intractable nausea and vomiting 7 hours later after eating chicken from a restaurant. The patient also reports diarrhea with vomiting. She denies any exposure to sick contacts. She has been unable to maintain any oral intake since the event. She reports her pains to be moderate to severe. With her bariatric history and presentation, she has been admitted for observation for further evaluation. PAST MEDICAL HISTORY: 1. Morbid obesity. 2. Iron deficiency anemia. 3. Hypertensive heart disease. 4. Gastroesophageal reflux disease. 5. Depression. 6. Asthma. PAST SURGICAL HISTORY: 1. Sleeve gastrectomy in July 2013. 2. section. 3. Cholecystectomy. MEDICATIONS: 1. Multivitamin. 2. Iron. 3. Lasix (she reports not taking her medication) 4. Omeprazole. 5. Vitamin D. 6. Gabapentin. 7. Cymbalta. 8. [place] 10. ALLERGIES: IBUPROFEN, IV IRON. 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 FAMILY HISTORY: Pertinent for diabetes including morbid obesity. REVIEW OF SYSTEMS: CONSTITUTIONAL: [place] body weight of 173 pounds for her 5 foot 10-1/4 inch frame. Highest weight of 489 pounds. Lowest weight of 400 pounds after her sleeve. She has gained 9 pounds. Present weight of 405 pounds. Body mass index reduced from 69.3 down to 58.3. HEENT: No reports of troubles with hearing or nasal drainage. Reports of intermittent dysphagia to solid foods. RESPIRATORY: Has prior history of obstructive sleep apnea. Denies any active dyspnea on exertion. CARDIOVASCULAR: History of hypertension. No recent palpitations. GASTROINTESTINAL: History gastroesophageal reflux disease. Gallbladder is already removed. Please see above. She reports new onset diarrhea. MUSCULOSKELETAL: Diffuse osteoarthritis especially of the knees and hips. NEURO: No reports of stroke or seizure disorder. PSYCH: No reports of depression or suicidal ideation. HEMATOLOGIC: Denies any DVTs. PHYSICAL EXAM: VITAL SIGNS: 98.5, 88, 18, 148/66, 405 pounds. 5'10 inches. GENERAL: Well-developed, pleasant female in no acute distress. HEENT: No scleral icterus. Extraocular movements grossly intact. No nasal drainage. NECK: Supple without lymphadenopathy. CHEST: Nonlabored respirations, equal bilateral excursions. CARDIOVASCULAR: Regular rate and rhythm. ABDOMEN: Obese, protuberant, soft. Focal tenderness along the epigastrium. No peritonitis. NEURO: No focal or lateralizing signs. Cranial nerves II through XII grossly within normal limits. PSYCH: Appropriate affect. Alert and oriented to person, place, and time. LABS: Reviewed WBC normal. Mg 1.9. Lipase normal. UA positive for nitrates, leukocyte esterase, CDiff negative. STUDIES: CT of the abdomen and pelvis reviewed consistent with normal small bowel obstruction. Features of sigmoid diverticulosis identified. Gastroenteritis cannot be excluded. ASSESSMENT: 1. Intractable nausea and vomiting with history of sleeve gastrectomy. 2. Gastroenteritis. 3. Diverticulosis of the large colon. 4. Dietary noncompliance to bariatric procedure. 5. Morbid obesity due to excess calories. 6. Body mass index reduced from 69.3 to 58.3. 7. Status post sleeve gastrectomy, now with weight gain. 8. Hypertension. 9. Epigastric abdominal pain. 10. Iron deficiency anemia. 11. Vitamin D deficiency. 12. Obstructive sleep apnea. 13. Gastroesophageal reflux disease. 14. Diaphragmatic hiatal hernia. 15. Complications of bariatric procedure sleeve gastrectomy, mechanical. 16. Severe dehydration secondary to poor oral intake and fluid losses. 17. Abnormal urinalysis with positive leukocyte esterase and nitrates for urinary tract infection. PLAN: 1. With her intractable nausea and vomiting and poor oral intake, she has severe dehydration. Recommend aggressive IV fluid IV fluid hydration. At minimum, over 6 L of fluid anticipated given the length of dehydration and the patient's overall size. 2. Her magnesium level is less than 2.0 which also exacerbates nausea and vomiting. Recommend replacement of magnesium level with goal of at least 2.0. 3. Urine culture for probable urinary tract infection. 4. Repeat chemistries. 5. No immediate surgical intervention needed at this time. 6. Disposition in 24-48 hours pending correction of electrolyte dyscrasias and IV fluid hydration including tolerance of diet. Past Medical History Past Medical History: Asthma, GERD/Reflux, Hypertension Additional Past Medical History / Comment(s): Abdominal pain, back pain, hiatal hernia. History of Any Multi-Drug Resistant Organisms: None Reported Past Surgical History: Bariatric Surgery, Section, Cholecystectomy Additional Past Surgical History / Comment(s): 10/05/16 EGD with bx, sleeve gastrectomy 11-. Past Anesthesia/Blood Transfusion Reactions: No Reported Reaction Past Psychological History: Depression Additional Psychological History / Comment(s): Pt states she lives with her dad. She states she has depression but it is unchanged. She denies thoughts of suicide or wishing she were . She is independent. Smoking Status: Current some day smoker Past Alcohol Use History: None Reported Additional Past Alcohol Use History / Comment(s): Pt states she started smoking as a teen and only smokes on days where her stress level is high. Past Drug Use History: Marijuana Additional Drug Use History / Comment(s): Pt states she smokes marijuana occasionally for pain. - Past Family History Father Family Medical History: Coronary Artery Disease (CAD) Additional Family Medical History / Comment(s): Father is 64yrs old. He has had a CABG. Mother Family Medical History: Renal Disease Additional Family Medical History / Comment(s): Mother of kidney disease. Medications and Allergies Home Medications Medication Instructions Recorded Confirmed Type DULoxetine HCL [Cymbalta] 30 mg PO DAILY 09/23/16 10/16/16 History Furosemide [Lasix] 40 mg PO DAILY 09/23/16 10/16/16 History Gabapentin 600 mg PO TID 09/23/16 10/16/16 History HYDROcodone/APAP 10-325MG [[place] 1 tab PO TID 09/23/16 10/16/16 History 10-325] Multivitamins, Thera [Multivitamin] 1 tab PO DAILY 09/23/16 10/16/16 History Omeprazole 20 mg PO BID 09/23/16 10/16/16 History Ergocalciferol [Vitamin D2 50,000 unit PO TH 10/02/16 10/16/16 History (DRISDOL)] Allergies Allergy/AdvReac Type Severity Reaction Status Date / Time ibuprofen [From Motrin] Allergy Swelling Verified 10/16/16 07:45 iron Allergy Anaphylaxis Verified 10/16/16 07:45 Surgical - Exam Vital Signs Temp Pulse Resp BP Pulse Ox 97.8 F 115 H 20 163/67 100 10/16/16 07:40 10/16/16 07:40 10/16/16 07:40 10/16/16 07:40 10/16/16 07:40 Results - Labs 10/16/16 08:14 10/16/16 08:14
[2016-10-16] MEDS: MAGNESIUM SULFATE-D5W PMX 1 GM in DEXTROSE/WATER 1 100ML.BAG IVPB SCH ×2 (16:01→17:12)
[2016-10-17] MEDS ORDERED: SODIUM CHLORIDE 0.9% 1,000 ML IV SCH (07:15)
[2016-10-17 07:51] VITALS: RESP 16
[2016-10-17 08:03] LABS: ALT 28 U/L (9-52); AST 14 U/L (14-36); Alkaline Phosphatase 66 U/L (38-126); Anion Gap 10 mmol/L; Blood Urea Nitrogen 13 mg/dL (7-17); Calcium 7.8 mg/dL (8.4-10.2); Carbon Dioxide 21 mmol/L (22-30); Chloride 109 mmol/L (98-107); Glucose 91 mg/dL (74-99); Magnesium 2.1 mg/dL (1.6-2.3); Non-African American GFR(MDRD) >60 (>60 ml/min/1.73 sqM); Phosphorous 2.8 mg/dL (2.5-4.5); Potassium 3.7 mmol/L (3.5-5.1); Sodium 140 mmol/L (137-145); Total Bilirubin 0.9 mg/dL (0.2-1.3); Total Protein 6.3 g/dL (6.3-8.2)
[2016-10-17 08:09] LABS: Basophils % (A) 1 %; CH 23.4; CHCM 29.9; Eosinophils % (A) 0 %; HDW 2.91; HGB 10.7 gm/dL (11.4-16.0); Hypochromasia Marked; Luc # (Auto) 0.11; Luc % (Auto) 3; Lymphocytes # (A) 1.2 k/uL (1.0-4.8); Lymphocytes % (A) 31 %; MCH 24.7 pg (25.0-35.0); MCHC 31.4 g/dL (31.0-37.0); MCV 78.5 fL (80.0-100.0); Mean Platelet Volume 6.2; Monocytes # (A) 0.3 k/uL (0-1.0); Monocytes % (A) 7 %; Neutrophils # (A) 2.2 k/uL (1.3-7.7); Neutrophils % (A) 58 %; RBC 4.33 m/uL (3.80-5.40); RDW 15.8 % (11.5-15.5); WBC 3.7 k/uL (3.8-10.6); WBC (Perox) 3.63
--- NOTE | 2016-10-17 08:48 | P.DS ---
Providers Date of admission: 10/16/16 13:18 Expected date of discharge: 10/17/16 Attending physician: Natalia Ambrocio Primary care physician: Stated None - Discharge Diagnosis(es) (1) Diverticulosis, sigmoid Current Visit: Yes Status: Acute (2) History of sleeve gastrectomy Current Visit: Yes Status: Chronic (3) Epigastric abdominal pain Current Visit: Yes Status: Chronic (4) Hiatal hernia Current Visit: Yes Status: Chronic (5) Noncompliance with diet and medication regimen Current Visit: Yes Status: Chronic (6) Dehydration Current Visit: Yes Status: Chronic (7) Gastroenteritis Current Visit: Yes Status: Acute (8) Hypertensive heart disease Current Visit: Yes Status: Chronic (9) Iron deficiency anemia Current Visit: Yes Status: Chronic (10) Iron deficiency anemia due to dietary causes Current Visit: Yes Status: Chronic (11) Inadequate dietary intake of protein Current Visit: Yes Status: Chronic (12) Sleep apnea Current Visit: Yes Status: Chronic (13) Morbid obesity Current Visit: Yes Status: Chronic (14) Adult BMI 50.0-59.9 kg/sq m Current Visit: Yes Status: Chronic (15) Depression Current Visit: Yes Status: Chronic (16) Intractable vomiting with nausea Current Visit: Yes Status: Acute (17) Tobacco use Current Visit: Yes Status: Acute Hospital Course: COURSE: Lety De La Rosa is a 31-year-old female who is status post sleeve gastrectomy in [facility] in 2013. She presents as a transfer of her bariatric care to [facility]. Over the last 2-3 years, she has intractable nausea and vomiting. She presented to the ER with intractable nausea and vomiting including diarrhea. C. diff was negative. Imaging was consistent with no obstructive symptoms and new finding of diverticulosis. Additionally early features gastroenteritis was found. She was treated conservatively with IV fluid hydration including correction of low magnesium level. She was started on antiemetics. Prior to discharge, she was tolerating diet. Electrolytes were corrected. Follow-up in the bariatric center in 5-7 days. Pertinent Studies: CT of the abdomen and pelvis demonstrates diverticulosis. No obstructive symptoms. Early features of gastroenteritis. Procedures: None. Patient Condition at Discharge: Stable Plan - Discharge Summary New Discharge Prescriptions: Metoclopramide [Reglan] 10 mg PO ACHS #30 tab Omeprazole 40 mg PO DAILY #90 capsule.dr Discharge Medication List DULoxetine HCL [Cymbalta] 30 mg PO DAILY 09/23/16 [History] Gabapentin 600 mg PO TID 09/23/16 [History] HYDROcodone/APAP 10-325MG [[place] 10-325] 1 tab PO TID 09/23/16 [History] Multivitamins, Thera [Multivitamin] 1 tab PO DAILY 09/23/16 [History] Zinc Gluconate [Zinc] 50 mg PO DAILY@1200 #60 tablet 09/30/16 [Rx] Ergocalciferol [Vitamin D2 (DRISDOL)] 50,000 unit PO TH 10/02/16 [History] Metoclopramide [Reglan] 10 mg PO ACHS #30 tab 10/17/16 [Rx] Omeprazole 40 mg PO DAILY #90 capsule. 10/17/16 [Rx] Follow up Appointment(s)/Referral(s): None,Stated [Primary Care Provider] - 1-2 days Natalia Ambrocio MD [STAFF PHYSICIAN] - 10/21/16 3:00 pm (Bariatric Center) Patient Instructions/Handouts: Hiatal Hernia (GEN), Diverticulosis (GEN), Diverticulosis Diet (GEN), Nutrition after Bariatric Surgery (GEN), How to Stop Smoking (DC) Activity/Diet/Wound Care/Special Instructions: Prescription at local pharmacy. Please take as advised. Recommend protein shakes and fluid intake of over 90 ounces daily. No lifting over 10 pounds in 5 days. Discharge Disposition: HOME SELF-CARE
[2016-10-17] MEDS: POTASSIUM CHLORIDE 20 MEQ, LIDOCAINE 2% INJ 20 MG in SODIUM CHLORIDE 0.9% 100 ML IVPB SCH ×2 (09:27→11:03)
[2016-10-17 12:19] VITALS: BP 117/56; PULSE 60; TEMP 98
--- NOTE | 2016-10-23 07:51 | CDI ---
Dr. Ambrocio, Please specify if patient did have an Urinary Tract Infection. Positive E. Coli on labs, abnormal labs, Thank you, Lotus Boone 10/23/16 See addendum to discharge MTDD
== END 2016-10-17 14:30 | disposition home or self-care (01) ==
LOC: EC 07:37 → 3OBS 13:18
PROVIDERS: ADMIT Surgery Plastic and Reconstructive Surgery; ATTEND Surgery Plastic and Reconstructive Surgery
DX: K57.30 Diverticulosis of large intestine without perforation or abscess without bleeding (principal); K44.9 Diaphragmatic hernia without obstruction or gangrene; E86.0 Dehydration; Z91.11 Patient's noncompliance with dietary regimen; I11.9 Hypertensive heart disease without heart failure; K52.9 Noninfective gastroenteritis and colitis, unspecified; D50.8 Other iron deficiency anemias; E63.9 Nutritional deficiency, unspecified; G47.33 Obstructive sleep apnea (adult) (pediatric); Z68.43 Body mass index [BMI] 50.0-59.9, adult; E66.01 Morbid (severe) obesity due to excess calories; F32.9 Major depressive disorder, single episode, unspecified; F17.200 Nicotine dependence, unspecified, uncomplicated; Z79.899 Other long term (current) drug therapy; Z79.891 Long term (current) use of opiate analgesic; Z88.8 Allergy status to other drugs, medicaments and biological substances; Z91.048 Other nonmedicinal substance allergy status; E55.9 Vitamin D deficiency, unspecified; K21.9 Gastro-esophageal reflux disease without esophagitis; N39.0 Urinary tract infection, site not specified; E83.42 Hypomagnesemia; B96.20 Unspecified Escherichia coli [E. coli] as the cause of diseases classified elsewhere; Z90.49 Acquired absence of other specified parts of digestive tract; Z83.3 Family history of diabetes mellitus; R07.9 Chest pain, unspecified; Z91.14 Patient's other noncompliance with medication regimen; Z98.84 Bariatric surgery status; Z88.6 Allergy status to analgesic agent
CPT/HCPCS: 96375 ×2; 96376; 96361 ×5; 99285; 36415; 93005; 80053 ×2; 82150; 82550; 82553; 83605; 83690; 83735 ×2; 84100; 84484; 85025 ×2; 85610; 85730; 81001; 81025; 87086; 87045; 89055; 87077; 87186; 87046; 80299; 74177; G0378 ×2; J2001; J2405; J3480; J1170; J3475; Q9967; 87324; 96365; 96366

== ENCOUNTER → 2016-10-21 | Outpatient (CLI) | payer MEDICARE, OTHER ==
[2016-10-21 15:22] VITALS: BP 137/71; PULSE 78; RESP 14; TEMP 98.2; BMI 57.6
--- NOTE | 2016-12-09 22:11 | P.PN ---
Progress Note - Text DATE OF SERVICE: 10/21/2016 CHIEF COMPLAINT: Complications from sleeve gastrectomy. HISTORY OF PRESENT ILLNESS: Lety De La Rosa is a 31-year-old female who reports chronic abdominal pain following her sleeve gastrectomy performed at [facility] in 2013. Her highest weight is 489 pounds for a 5 foot, 10-1/4 inch frame. Today she comes in weighing 404 pounds. In fact she has actually lost 9 pounds in approximately one month after reinstituting care at this bariatric center. Her ideal body weight for her 5 feet 10-1/4 inch frame is 173 pounds. She has lost 85 pounds. She is still 231 pounds overweight. Her body mass index has been reduced from 70 down to 57.7. Percent excess weight loss is 27%. Incidentally, she was also hospitalized within the last 1 to 2 weeks for intractable nausea and vomiting including electrolyte dyscrasias which is now improved. She still reports smoking. She has cut back moderately, however. Given the severity of her reflux disease including epigastric abdominal pain as well as complications from her sleeve gastrectomy, she is looking for corrective procedure with a hiatal hernia repair as well as revision to a Savi-en-Y gastric bypass. PAST MEDICAL HISTORY: 1. Morbid obesity. 2. Iron deficiency anemia. 3. Hypertensive heart disease. 4. Gastroesophageal reflux disease. 5. Depression. 6. Asthma. 7. Chronic pain. PAST SURGICAL HISTORY: 1. Sleeve gastrectomy in July 2013. 2. section. 3. Cholecystectomy. 4. Upper endoscopy. MEDICATIONS: 1. Zinc. 2. Omeprazole. 3. Multivitamin. 4. Reglan. 5. [place]. 6. Gabapentin. 7. Vitamin D. 8. Cymbalta. 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 REVIEW OF SYSTEMS: CONSTITUTIONAL: Current weight of 404 pounds. She has lost 10 pounds since reinstitution of her care at the bariatric center in the last 1 to 2 months. Percent excess weight loss is 27%. [place] body weight of 173 pounds. Highest weight of 489 pounds. Total maintained weight loss of 85 pounds. Body mass index reduced from 70 down a 57.7. Total BMI point reduction is 12.1. GASTROINTESTINAL: Has severe gastroesophageal reflux disease including symptomatic diaphragmatic hiatal hernia with a sleeve gastrectomy. She has structural problem with her sleeve as identified from upper endoscopy. HEENT: She wears glasses. No reports of troubles with hearing or nasal drainage. No reports of active dysphagia to solid foods. RESPIRATORY: Has prior history of obstructive sleep apnea. Denies any active dyspnea on exertion. CARDIOVASCULAR: History of hypertension. No recent palpitations. MUSCULOSKELETAL: Diffuse osteoarthritis especially of the knees and hips. NEURO: No reports of stroke or seizure disorder. PSYCH: No reports of depression or suicidal ideation. HEMATOLOGIC: Denies any DVTs. PHYSICAL EXAM: VITAL SIGNS: 98.2, 78, 14, 137/71, 5 feet 10-1/4 inch, 404 pounds, body mass index of 57.7. ABDOMEN: Soft, nondistended, nontender. GENERAL: Well-developed, pleasant female in no acute distress. HEENT: No scleral icterus. Extraocular movements grossly intact. No nasal drainage. NECK: Supple without lymphadenopathy. CHEST: Nonlabored respirations, equal bilateral excursions. CARDIOVASCULAR: Regular rate and rhythm. NEURO: No focal or lateralizing signs. Cranial nerves II through XII grossly within normal limits. PSYCH: Appropriate affect. Alert and oriented to person, place, and time. LABS: Recent labs reviewed, demonstrating hemoglobin low at 10.7. White blood cell count was low at 3.7. Calcium was low at 7.8. Iron was low at 29. Albumin was low at 3.1. Vitamin D was low at 23.5. ASSESSMENT: 1. Morbid obesity due to excess calories. 2. Body mass index reduced from 70 down to 57.7. 3. Weight gain following bariatric procedure. 4. Epigastric abdominal pain. 5. 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 6. Gastroesophageal reflux disease. 7. Hypertensive heart disease. 8. History of obstructive sleep apnea. 9. Chronic pain syndrome. 10. Diaphragmatic hiatal hernia. 11. Iron deficiency anemia. 12. Vitamin D deficiency. 13. Zinc deficiency. 14. Dietary surveillance and counseling. 15. History of electrolyte dyscrasias. 16. Gastric stenosis. 17. Tobacco use. PLAN: 1. She has multiple hospitalizations including diagnostic work-up consistent with structural abnormalities with her sleeve gastrectomy. In addition, she also has a diaphragmatic hiatal hernia and gastric stenosis. With these findings, I would recommend repair of her hiatal hernia, including correction of her sleeve gastrectomy to a Savi-en-Y gastric bypass. 2. As this is a revisional case, she has increased risk for stricture including leaks. These may be life-threatening complications for which she was thoroughly counseled regarding to the benefits and risks of surgical intervention. 3. Currently she still has history of tobacco and nicotine use. She will need complete tobacco cessation prior to her procedure. Recommend urine nicotine test. 4. Recommend inpatient hospitalization greater than 2 nights anticipated. 5. Deep venous thrombosis prophylaxis. 6. Antibiotic prophylaxis. 7. With her history of iron deficiency anemia, she will continue with iron supplements. She had an anaphylactic reaction to Venofer IV iron which will be avoided. 8. Bariatric dietitian classes advised. 9. Would also recommend at minimum a 2 to 3 week high-protein, low-caloric diet of 800 kcal to address hepatomegaly. 10. Recommend followup upon completion of her bariatric assessment.
== END | disposition home or self-care (01) ==
LOC: BARWHC3 14:52
PROVIDERS: ATTEND Surgery Plastic and Reconstructive Surgery
DX: Z48.815 Encounter for surgical aftercare following surgery on the digestive system (principal); T85.9XXA Unspecified complication of internal prosthetic device, implant and graft, initial encounter; E66.01 Morbid (severe) obesity due to excess calories; Z68.43 Body mass index [BMI] 50.0-59.9, adult; R10.13 Epigastric pain; K21.9 Gastro-esophageal reflux disease without esophagitis; I11.9 Hypertensive heart disease without heart failure; G47.33 Obstructive sleep apnea (adult) (pediatric); G89.4 Chronic pain syndrome; K44.9 Diaphragmatic hernia without obstruction or gangrene; D50.9 Iron deficiency anemia, unspecified; E55.9 Vitamin D deficiency, unspecified; E60 Dietary zinc deficiency; Z87.898 Personal history of other specified conditions; K31.89 Other diseases of stomach and duodenum; Z72.0 Tobacco use; Z79.899 Other long term (current) drug therapy; Z88.8 Allergy status to other drugs, medicaments and biological substances
CPT/HCPCS: 99211

== ENCOUNTER → 2016-12-16 | Outpatient (CLI) | payer MEDICARE, OTHER ==
[2016-12-16 15:27] LABS: Appearance,Urine Cloudy (Clear); Bacteria,Urine Many /hpf; Bilirubin,Urine Negative (Negative); Glucose,Urine (UA) Negative (Negative); Ketones,Urine Negative (Negative); Leukocyte Esterase,Urine Trace (Negative); Mucus,Urine Occasional /hpf; Nitrite,Urine Positive (Negative); PH, Urine 6.5 (5.0-8.0); Particle Count 17265; Protein,Urine Trace (Negative); RBC,Urine 1 /hpf (0-5); Specific Gravity,Urine 1.022 (1.001-1.035); Squamous Epithelial Cell,Urine 4 /hpf (0-4); UA Billing (MACRO vs. MICRO) MICRO; Urobilinogen,Urine <2.0 mg/dL (<2.0); WBC,Urine 5 /hpf (0-5)
[2016-12-16 15:28] LABS: ALT 27 U/L (9-52); AST 25 U/L (14-36); Alkaline Phosphatase 74 U/L (38-126); Anion Gap 9 mmol/L; Blood Urea Nitrogen 16 mg/dL (7-17); Calcium 9.5 mg/dL (8.4-10.2); Carbon Dioxide 29 mmol/L (22-30); Chloride 104 mmol/L (98-107); Glucose 98 mg/dL (74-99); Non-African American GFR(MDRD) >60 (>60 ml/min/1.73 sqM); Potassium 4.5 mmol/L (3.5-5.1); Sodium 142 mmol/L (137-145); Total Bilirubin 0.8 mg/dL (0.2-1.3); Total Protein 8.5 g/dL (6.3-8.2)
[2016-12-16 15:29] LABS: Basophils # (A) 0.1 k/uL (0-0.2); Basophils % (A) 1 %; CH 23.5; CHCM 30.4; Eosinophils # (A) 0.3 k/uL (0-0.7); Eosinophils % (A) 3 %; HCT 41.2 % (34.0-46.0); HDW 2.87; HGB 12.5 gm/dL (11.4-16.0); Hypochromasia Marked; Luc # (Auto) 0.14; Luc % (Auto) 2; Lymphocytes # (A) 2.8 k/uL (1.0-4.8); Lymphocytes % (A) 34 %; MCH 23.4 pg (25.0-35.0); MCHC 30.2 g/dL (31.0-37.0); MCV 77.3 fL (80.0-100.0); Mean Platelet Volume 6.2; Microcytosis Slight; Monocytes # (A) 0.3 k/uL (0-1.0); Monocytes % (A) 3 %; Neutrophils # (A) 4.6 k/uL (1.3-7.7); Neutrophils % (A) 57 %; RBC 5.33 m/uL (3.80-5.40); RDW 15.6 % (11.5-15.5); WBC 8.1 k/uL (3.8-10.6); WBC (Perox) 8.49
[2016-12-21 06:05] LABS: Anabasine Urine <2.0 ng/mL (<2.0)
== END | disposition home or self-care (01) ==
LOC: LABPAT 14:57
PROVIDERS: ATTEND Surgery Plastic and Reconstructive Surgery
DX: I10 Essential (primary) hypertension (principal); R35.0 Frequency of micturition; R30.9 Painful micturition, unspecified; Z72.0 Tobacco use
CPT/HCPCS: 80053; 85025; 81001; 87086; 87077; 87186; 36415; G0480; 80323

== ENCOUNTER → 2016-12-16 | Outpatient (CLI) | payer MEDICARE, OTHER ==
[2016-12-16 13:35] VITALS: BP 137/74; PULSE 62; RESP 16; TEMP 97.5; BMI 57.6
--- NOTE | 2017-01-11 19:35 | P.PN ---
Progress Note - Text DATE OF SERVICE: 12/16/2016 CHIEF COMPLAINT: Epigastric abdominal pain. HISTORY OF PRESENT ILLNESS: Lety De La Rosa is a 31-year-old female who had a sleeve gastrectomy performed at [facility] in 2013. She is almost 3 years out. She had troubles with discontinuing her smoking. She has severe epigastric abdominal pain from a diaphragmatic hiatal hernia. At her height of 5 feet 10-1/4 inches, she still is moderately overweight by 231 pounds. Her initial weight was 499 pounds. Today she comes in weighing 404 pounds. Her ideal body weight is 173 pounds. She has maintained an 85 pound weight loss after 3 years. Percent excess weight loss is 27%. Body mass index is reduced from 69.8 down to 57.7. Total BMI point reduction is 12.1. Given the severity of her reflux disease including being moderately overweight, she has elected for Savi-en-Y gastric bypass as well. Now she presents for further evaluation and management. She has completed medical risk assessment from her primary care provider as well. PAST MEDICAL HISTORY: 1. Morbid obesity. 2. Iron deficiency anemia. 3. Hypertensive heart disease. 4. Gastroesophageal reflux disease. 5. Depression. 6. Asthma. 7. Chronic pain. 8. Diaphragmatic hiatal hernia. PAST SURGICAL HISTORY: 1. Sleeve gastrectomy in July 2013. 2. section. 3. Cholecystectomy. 4. Upper endoscopy. MEDICATIONS: 1. Zinc. 2. Omeprazole. 3. Multivitamin. 4. Reglan. 5. [place]. 6. Gabapentin. 7. Vitamin D. 8. Cymbalta. 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 REVIEW OF SYSTEMS: CONSTITUTIONAL: [place] body weight is 173 pounds. Highest weight of 499 pounds. She is still 231 pounds overweight. Percent excess weight loss only 27%. GASTROINTESTINAL: Has severe gastroesophageal reflux disease including symptomatic diaphragmatic hiatal hernia with complications from her sleeve gastrectomy. PSYCH: History of depression without any recent suicidal ideation. HEENT: She wears glasses. No reports of troubles with hearing or nasal drainage. No reports of active dysphagia to solid foods. RESPIRATORY: Has prior history of obstructive sleep apnea. Denies any active dyspnea on exertion. CARDIOVASCULAR: History of hypertension. No recent palpitations. MUSCULOSKELETAL: Diffuse osteoarthritis especially of the knees and hips. NEURO: No reports of stroke or seizure disorder. HEMATOLOGIC: Denies any DVTs. PHYSICAL EXAM: VITAL SIGNS: 97.5, 62, 16, 137/74; 5 feet 10-1/4 inches, 404 pounds. Body mass index is 57.7. ABDOMEN: Mild tenderness along the epigastrium without peritonitis. Protuberant, soft, nondistended. GENERAL: Well-developed, pleasant female in no acute distress. HEENT: No scleral icterus. Extraocular movements grossly intact. No nasal drainage. NECK: Supple without lymphadenopathy. CHEST: Nonlabored respirations, equal bilateral excursions. CARDIOVASCULAR: Regular rate and rhythm. NEURO: No focal or lateralizing signs. Cranial nerves II through XII grossly within normal limits. PSYCH: Appropriate affect. Alert and oriented to person, place, and time. ASSESSMENT: 1. Morbid obesity due to excess calories. 2. Body mass index reduced from 69.8 to 57.7. 3. Weight gain following bariatric procedure. 4. Epigastric abdominal pain. 5. 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 6. Gastroesophageal reflux disease. 7. Hypertensive heart disease. 8. History of obstructive sleep apnea. 9. Chronic pain syndrome. 10. Diaphragmatic hiatal hernia. 11. Iron deficiency anemia. 12. Vitamin D deficiency. 13. Zinc deficiency. 14. Dietary surveillance and counseling. 15. History of electrolyte dyscrasias. 16. Gastric stenosis. 17. Tobacco use. 18. History of depression. PLAN: 1. She has undergone multiple diagnostic work-up including findings of a diaphragmatic hiatal hernia and complications from sleeve gastrectomy. Would recommend correction of her sleeve with a hiatal hernia repair as well as revision to her Savi-en-Y gastric bypass, which is known to correct her reflux disease as well as provide additional weight loss. 2. She does have history of depression, whereby her Cymbalta adjustments will be needed. Recommend a psych assessment and evaluation regarding risk of surgery. 3. She is still very high risk for complications from revisional surgery. This was carefully discussed with her as well as inpatient hospitalization. 4. Recommend preoperative diet class with bariatric dietitian at minimum for 2 weeks of a high protein, low caloric diet of 800 kcal. 5. She has troubles with smoking for which she will need to repeat urine nicotine test and urinalysis is pending. 6. She also has history of recurrent urinary tract infection for which a repeat urinalysis and culture is pending. Should this be positive, then she will need to complete treatment of her urinary tract infection prior to additional surgical elective procedure. 7. Would recommend inpatient hospitalization, anticipate over 2 nights. 8. DVT prophylaxis. 9. Antibiotic prophylaxis. ADDENDUM: Urinalysis obtained consistent with recurrent E. coli infection. E. coli is resistant to ampicillin including Unasyn, gentamicin, tetracycline and Bactrim. Prescription for ciprofloxacin was written on her behalf. Upon discussion with the bariatric nurses, the patient health hygiene was also described in detail with her to minimize risk for recurrent UTI.
== END | disposition home or self-care (01) ==
LOC: BARWHC3 13:22
PROVIDERS: ATTEND Surgery Plastic and Reconstructive Surgery
DX: Z48.815 Encounter for surgical aftercare following surgery on the digestive system (principal); E66.01 Morbid (severe) obesity due to excess calories; Z68.43 Body mass index [BMI] 50.0-59.9, adult; R10.13 Epigastric pain; K95.89 Other complications of other bariatric procedure; K21.9 Gastro-esophageal reflux disease without esophagitis; I11.9 Hypertensive heart disease without heart failure; G47.33 Obstructive sleep apnea (adult) (pediatric); G89.4 Chronic pain syndrome; K44.9 Diaphragmatic hernia without obstruction or gangrene; D50.9 Iron deficiency anemia, unspecified; E55.9 Vitamin D deficiency, unspecified; E60 Dietary zinc deficiency; K31.89 Other diseases of stomach and duodenum; J45.909 Unspecified asthma, uncomplicated; F32.9 Major depressive disorder, single episode, unspecified; Z98.84 Bariatric surgery status; F17.200 Nicotine dependence, unspecified, uncomplicated; Z88.8 Allergy status to other drugs, medicaments and biological substances; Z79.899 Other long term (current) drug therapy
CPT/HCPCS: 36415; 80053; 80323; 81001; 85025; 87077; 87086; 87186; 99211

== ENCOUNTER 2017-02-04 21:40 | Emergency (ER) | payer MEDICARE, OTHER ==
[2017-02-04 21:53] VITALS: TEMP 97.9
[2017-02-04] MEDS ORDERED: MAG HYDROX/AL HYDROX/SIMETH 30 ML, HYOSCYAMINE ELIXIR 10 ML, CIMETIDINE HCL 300 MG PO STA ×3 (22:17)
[2017-02-04] MEDS ORDERED: PANTOPRAZOLE 40 MG/10 ML VIAL IVP STA (22:17)
--- NOTE | 2017-02-04 22:19 | ED ---
General Adult HPI - General Chief complaint: Chest Pain Stated complaint: Chest Pain Time Seen by Provider: 02/04/17 21:43 Source: patient, RN notes reviewed, old records reviewed Mode of arrival: wheelchair Limitations: physical limitation - History of Present Illness Initial comments: This is a 31-year-old female here for evaluation. This patient presents today for evaluation of chest pain and shortness of breath. Patient had a syncopal event. Patient has morbid obesity, but no other medical history. She denies any chest pain or shortness of breath at this time. Patient was out mowing her lawn and had a syncopal event. She does admit to getting shortness of breath into the activity. Patient again is morbidly obese. At this time she is without complaint - Related Data Home Medications Medication Instructions Recorded Confirmed Gabapentin 600 mg PO TID 09/23/16 02/04/17 HYDROcodone/APAP 10-325MG [[place] 1 tab PO TID PRN 09/23/16 02/04/17 10-325] Multivitamins, Thera [Multivitamin] 1 tab PO DAILY 09/23/16 02/04/17 Ergocalciferol [Vitamin D2 50,000 unit PO TH 10/02/16 02/04/17 (DRISDOL)] DULoxetine HCL [Cymbalta] 60 mg PO DAILY 02/04/17 02/04/17 Nystatin 1 applic TOPICAL DAILY 02/04/17 02/04/17 busPIRone HCL 10 mg PO BID 02/04/17 02/04/17 Previous Rx's Medication Instructions Recorded Omeprazole 40 mg PO DAILY #90 capsule. 10/17/16 Allergies Allergy/AdvReac Type Severity Reaction Status Date / Time ibuprofen [From Motrin] Allergy Swelling Verified 02/04/17 21:53 iron Allergy Anaphylaxis Verified 02/04/17 21:53 Review of Systems ROS Statement: Those systems with pertinent positive or pertinent negative responses have been documented in the HPI. ROS Other: All systems not noted in ROS Statement are negative. Past Medical History Past Medical History: Asthma, GERD/Reflux, Hypertension Additional Past Medical History / Comment(s): Abdominal pain, back pain, hiatal hernia. History of Any Multi-Drug Resistant Organisms: None Reported Past Surgical History: Bariatric Surgery, Section, Cholecystectomy Additional Past Surgical History / Comment(s): 10/05/16 EGD with bx, sleeve gastrectomy 11-13. Past Anesthesia/Blood Transfusion Reactions: No Reported Reaction Past Psychological History: Depression Additional Psychological History / Comment(s): Pt states she lives with her dad. She states she has depression but it is unchanged. She denies thoughts of suicide or wishing she were . She is independent. Smoking Status: Former smoker Past Alcohol Use History: None Reported Additional Past Alcohol Use History / Comment(s): Pt states she started smoking as a teen and only smokes on days where her stress level is high. Past Drug Use History: Marijuana Additional Drug Use History / Comment(s): Pt states she smokes marijuana occasionally for pain. - Past Family History Mother Family Medical History: No Reported History Father Family Medical History: Coronary Artery Disease (CAD) Additional Family Medical History / Comment(s): Father is 64yrs old. He has had a CABG. General Exam Limitations: physical limitation General appearance: alert, in no apparent distress Head exam: Present: atraumatic, normocephalic, normal inspection Eye exam: Present: normal appearance, PERRL, EOMI. Absent: scleral icterus, conjunctival injection, periorbital swelling ENT exam: Present: normal exam, mucous membranes moist Neck exam: Present: normal inspection. Absent: tenderness, meningismus, lymphadenopathy Respiratory exam: Present: normal lung sounds bilaterally. Absent: respiratory distress, wheezes, rales, rhonchi, stridor Cardiovascular Exam: Present: regular rate, normal rhythm, normal heart sounds. Absent: systolic murmur, diastolic murmur, rubs, gallop, clicks GI/Abdominal exam: Present: soft, normal bowel sounds. Absent: distended, tenderness, guarding, rebound, rigid Extremities exam: Present: normal inspection, full ROM, normal capillary refill. Absent: tenderness, pedal edema, joint swelling, calf tenderness Back exam: Present: normal inspection Neurological exam: Present: alert, oriented X3, CN II-XII intact Psychiatric exam: Present: normal affect, normal mood Skin exam: Present: warm, dry, intact, normal color. Absent: rash Course Vital Signs 02/04/17 21:44 Temperature 97.9 F Pulse Rate 67 Respiratory 16 Rate Blood Pressure 143/63 O2 Sat by Pulse 99 Oximetry - Reevaluation(s) Reevaluation #1: 02/04/17 23:19 Patient is without syncopal event here in the ER, no headache no chest pain or shortness of breath no abdominal pain EKG Findings - EKG Comments: EKG Findings:: EKG shows normal sinus rhythm with 63, MA 138, QRS 94, QTC 421 Medical Decision Making - Medical Decision Making 31 female DF for evaluation. Patient is here for evaluation of syncopal event, no chest pain or shortness of breath at this time, symptoms of chest pain root were reviewed with treatment or reflux. Patient feeling better and can be discharged home - Lab Data Result diagrams: 02/04/17 22:05 02/04/17 22:05 Lab Results 02/04/17 02/04/17 02/04/17 Range/Units 22:05 22:05 22:05 WBC 9.2 (3.8-10.6) k/uL RBC 5.22 (3.80-5.40) m/uL Hgb 12.4 (11.4-16.0) gm/dL Hct 39.7 (34.0-46.0) % MCV 76.0 L (80.0-100.0) fL MCH 23.7 L (25.0-35.0) pg MCHC 31.2 (31.0-37.0) g/dL RDW 15.6 H (11.5-15.5) % Plt Count 262 (150-450) k/uL Neutrophils % 54 % Lymphocytes % 36 % Monocytes % 4 % Eosinophils % 3 % Basophils % 1 % Neutrophils # 4.9 (1.3-7.7) k/uL Lymphocytes # 3.3 (1.0-4.8) k/uL Monocytes # 0.4 (0-1.0) k/uL Eosinophils # 0.3 (0-0.7) k/uL Basophils # 0.1 (0-0.2) k/uL Hypochromasia Marked Microcytosis Slight PT (9.0-12.0) sec INR (<1.1) APTT (22.0-30.0) sec Sodium 144 (137-145) mmol/L Potassium 4.1 (3.5-5.1) mmol/L Chloride 105 (98-107) mmol/L Carbon Dioxide 27 (22-30) mmol/L Anion Gap 12 mmol/L BUN 12 (7-17) mg/dL Creatinine 0.70 (0.52-1.04) mg/dL Est GFR (MDRD) Af Amer >60 (>60 ml/min/1.73 sqM) Est GFR (MDRD) Non-Af >60 (>60 ml/min/1.73 sqM) Glucose 89 (74-99) mg/dL Calcium 9.4 (8.4-10.2) mg/dL Magnesium 2.1 (1.6-2.3) mg/dL Total Bilirubin 0.6 (0.2-1.3) mg/dL AST 20 (14-36) U/L ALT 29 (9-52) U/L Alkaline Phosphatase 104 (38-126) U/L Total Creatine Kinase 82 (30-135) U/L CK-MB (CK-2) 0.3 (0.0-2.4) ng/mL CK-MB (CK-2) Rel Index 0.4 Troponin I <0.012 (0.000-0.034) ng/mL Total Protein 8.2 (6.3-8.2) g/dL Albumin 4.5 (3.5-5.0) g/dL Lipase 222 (23-300) U/L 02/04/17 Range/Units 22:05 WBC (3.8-10.6) k/uL RBC (3.80-5.40) m/uL Hgb (11.4-16.0) gm/dL Hct (34.0-46.0) % MCV (80.0-100.0) fL MCH (25.0-35.0) pg MCHC (31.0-37.0) g/dL RDW (11.5-15.5) % Plt Count (150-450) k/uL Neutrophils % % Lymphocytes % % Monocytes % % Eosinophils % % Basophils % % Neutrophils # (1.3-7.7) k/uL Lymphocytes # (1.0-4.8) k/uL Monocytes # (0-1.0) k/uL Eosinophils # (0-0.7) k/uL Basophils # (0-0.2) k/uL Hypochromasia Microcytosis PT 10.3 (9.0-12.0) sec INR 1.0 (<1.1) APTT 25.1 (22.0-30.0) sec Sodium (137-145) mmol/L Potassium (3.5-5.1) mmol/L Chloride (98-107) mmol/L Carbon Dioxide (22-30) mmol/L Anion Gap mmol/L BUN (7-17) mg/dL Creatinine (0.52-1.04) mg/dL Est GFR (MDRD) Af Amer (>60 ml/min/1.73 sqM) Est GFR (MDRD) Non-Af (>60 ml/min/1.73 sqM) Glucose (74-99) mg/dL Calcium (8.4-10.2) mg/dL Magnesium (1.6-2.3) mg/dL Total Bilirubin (0.2-1.3) mg/dL AST (14-36) U/L ALT (9-52) U/L Alkaline Phosphatase (38-126) U/L Total Creatine Kinase (30-135) U/L CK-MB (CK-2) (0.0-2.4) ng/mL CK-MB (CK-2) Rel Index Troponin I (0.000-0.034) ng/mL Total Protein (6.3-8.2) g/dL Albumin (3.5-5.0) g/dL Lipase (23-300) U/L - Radiology Data Radiology results: report reviewed (Chest x-ray is negative for acute disease), image reviewed Disposition Clinical Impression: Syncope, GERD (gastroesophageal reflux disease) Disposition: HOME SELF-CARE Condition: Good Instructions: Syncope (ED) Referrals: Gabriele Meza DO [Primary Care Provider] - 1-2 days
[2017-02-04 22:32] LABS: Basophils # (A) 0.1 k/uL (0-0.2); Basophils % (A) 1 %; CH 23.2; CHCM 30.6; Eosinophils # (A) 0.3 k/uL (0-0.7); Eosinophils % (A) 3 %; HCT 39.7 % (34.0-46.0); HDW 2.91; HGB 12.4 gm/dL (11.4-16.0); Hypochromasia Marked; Luc # (Auto) 0.18; Luc % (Auto) 2; Lymphocytes # (A) 3.3 k/uL (1.0-4.8); Lymphocytes % (A) 36 %; MCH 23.7 pg (25.0-35.0); MCHC 31.2 g/dL (31.0-37.0); Microcytosis Slight; Monocytes # (A) 0.4 k/uL (0-1.0); Monocytes % (A) 4 %; Neutrophils # (A) 4.9 k/uL (1.3-7.7); Neutrophils % (A) 54 %; RBC 5.22 m/uL (3.80-5.40); RDW 15.6 % (11.5-15.5); WBC 9.2 k/uL (3.8-10.6)
[2017-02-04 22:34] LABS: Partial Thromboplastin Time 25.1 sec (22.0-30.0); Prothrombin Time 10.3 sec (9.0-12.0)
[2017-02-04 22:36] LABS: ALT 29 U/L (9-52); AST 20 U/L (14-36); Alkaline Phosphatase 104 U/L (38-126); Anion Gap 12 mmol/L; Blood Urea Nitrogen 12 mg/dL (7-17); Calcium 9.4 mg/dL (8.4-10.2); Carbon Dioxide 27 mmol/L (22-30); Chloride 105 mmol/L (98-107); Glucose 89 mg/dL (74-99); Magnesium 2.1 mg/dL (1.6-2.3); Non-African American GFR(MDRD) >60 (>60 ml/min/1.73 sqM); Potassium 4.1 mmol/L (3.5-5.1); Sodium 144 mmol/L (137-145); Total Bilirubin 0.6 mg/dL (0.2-1.3); Total Protein 8.2 g/dL (6.3-8.2)
--- NOTE | 2017-02-04 22:40 | XR ---
EXAM: XR Chest, 2 Views CLINICAL HISTORY: Reason: Chest Pain TECHNIQUE: Frontal and lateral views of the chest. COMPARISON: No relevant prior studies available. FINDINGS: Lungs: Unremarkable. No consolidation. Pleural space: No pleural effusion. No pneumothorax. Heart: Unremarkable. No cardiomegaly. Mediastinum: Unremarkable. Bones/joints: Chronic appearing lateral left sided rib fractures. IMPRESSION: No acute cardiopulmonary disease.
[2017-02-04 22:46] LABS: Creatine Kinase 82 U/L (30-135)
[2017-02-04 22:59] LABS: Creatine Kinase MB 0.3 ng/mL (0.0-2.4); Troponin I <0.012 ng/mL (0.000-0.034)
[2017-02-04 23:26] VITALS: BP 110/56; PULSE 68; RESP 20
== END 2017-02-04 23:35 | disposition home or self-care (01) ==
LOC: EC 21:40
DX: K21.9 Gastro-esophageal reflux disease without esophagitis (principal); R55 Syncope and collapse; F32.9 Major depressive disorder, single episode, unspecified; E66.01 Morbid (severe) obesity due to excess calories; Z87.891 Personal history of nicotine dependence; Z79.899 Other long term (current) drug therapy; Z88.6 Allergy status to analgesic agent; Z91.09 Other allergy status, other than to drugs and biological substances; Z98.84 Bariatric surgery status; Z90.49 Acquired absence of other specified parts of digestive tract; Z82.49 Family history of ischemic heart disease and other diseases of the circulatory system; Z68.43 Body mass index [BMI] 50.0-59.9, adult
CPT/HCPCS: 99285; 96374; 36415; 93005; 80053; 82550; 82553; 83690; 83735; 84484; 85025; 85610; 85730; 71020; C9113

== ENCOUNTER → 2017-02-08 | Outpatient (CLI) | payer MEDICARE, OTHER ==
[2017-02-08 11:50] VITALS: BP 145/89; PULSE 69; TEMP 97; BMI 58.8
--- NOTE | 2017-03-09 14:13 | P.PN ---
Progress Note - Text DATE OF SERVICE: 02/08/2017 CHIEF COMPLAINT: Complications from sleeve gastrectomy. HISTORY OF PRESENT ILLNESS: Lety De La Rosa is a 31-year-old female who had a sleeve gastrectomy performed at [facility] in 2013. She is 3 years out. In the last 3-5 days, she presented to the emergency room after having acute syncopal episode. All studies were otherwise unremarkable for PEs or DVTs. Her EKG was also unremarkable for acute myocardial event. She has history of symptomatic gastroesophageal reflux disease including diaphragmatic hiatal hernia for which reports chronic epigastric abdominal pain. She reports that her syncopal episode was elicited after eating scrambled eggs and having diarrhea. Separately, she has history of tobacco use and denies any recent tobacco exposure over the last several weeks. She does has history of chronic urinary tract infection which her last urine sample demonstrates persistent infection. At this time, she is pending further psych evaluation for revision of her sleeve gastrectomy. She reports coming off her Cymbalta. At her height of 5 feet 10-1/4 inches, she still is moderately overweight by 239 pounds. Her initial weight was 499 pounds. Today she comes in weighing 412 pounds. Her ideal body weight is 173 pounds. She has maintained an 87 pound weight loss after 3 years. Percent excess weight loss is 27%. Body mass index is reduced from 71.2 down to 58.8. Total BMI point reduction is 12.4. PAST MEDICAL HISTORY: 1. Morbid obesity. 2. Iron deficiency anemia. 3. Hypertensive heart disease. 4. Gastroesophageal reflux disease. 5. Depression. 6. Asthma. 7. Chronic pain. 8. Diaphragmatic hiatal hernia. PAST SURGICAL HISTORY: 1. Sleeve gastrectomy in July 2013. 2. section. 3. Cholecystectomy. 4. Upper endoscopy. MEDICATIONS: 1. Zinc. 2. Omeprazole. 3. Multivitamin. 4. Reglan. 5. [place]. 6. Gabapentin. 7. Vitamin D. 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 REVIEW OF SYSTEMS: CONSTITUTIONAL: [place] body weight is 173 pounds. Highest weight of 499 pounds. She is still 239 pounds overweight. Percent excess weight loss only 27%. She has gained 8 pounds in the past 2 months. GASTROINTESTINAL: Has severe gastroesophageal reflux disease including symptomatic diaphragmatic hiatal hernia with complications from her sleeve gastrectomy. PSYCH: History of depression without any recent suicidal ideation. HEENT: She wears glasses. No reports of troubles with hearing or nasal drainage. No reports of active dysphagia to solid foods. RESPIRATORY: Has prior history of obstructive sleep apnea. Had recent computed tomography scan demonstrating no pulmonary embolism. CARDIOVASCULAR: History of hypertension. Has history of syncopal episode which has been unremarkable for cause. MUSCULOSKELETAL: Diffuse osteoarthritis especially of the knees and hips. NEURO: No reports of stroke or seizure disorder. HEMATOLOGIC: Denies any DVTs. PHYSICAL EXAM: VITAL SIGNS: 5 feet 10-1/4 inches, 412 pounds. Body mass index is 58.8 Vital Signs 02/08/17 11:41 Temperature 97.0 F L Pulse Rate 69 Blood Pressure 145/89 . ABDOMEN: Protuberant, soft, nondistended. Nontender. GENERAL: Well-developed, pleasant female in no acute distress. HEENT: No scleral icterus. Extraocular movements grossly intact. No nasal drainage. NECK: Supple without lymphadenopathy. CHEST: Nonlabored respirations, equal bilateral excursions. CARDIOVASCULAR: Regular rate and rhythm. NEURO: No focal or lateralizing signs. Cranial nerves II through XII grossly within normal limits. PSYCH: Appropriate affect. Alert and oriented to person, place, and time. STUDIES: CT of the chest demonstrates no acute pulmonary embolism. ASSESSMENT: 1. Morbid obesity due to excess calories. 2. Body mass index reduced from 69.8 to 58.8. 3. Weight gain following bariatric procedure. 4. Epigastric abdominal pain. 5. 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 6. Gastroesophageal reflux disease. 7. Hypertensive heart disease. 8. History of obstructive sleep apnea. 9. Chronic pain syndrome. 10. Diaphragmatic hiatal hernia. 11. Iron deficiency anemia. 12. Vitamin D deficiency. 13. Zinc deficiency. 14. Dietary surveillance and counseling. 15. Gastric stenosis. 16. Tobacco use. 17. History of depression. 18. History of recent syncopal episode. 19. Chronic urinary tract infection. PLAN: 1. Recommend psych assessment for complete evaluation of her bariatric profile. 2. She will need a repeat urine test for history of chronic urinary tract infection. 3. Recommend urine cotinine test for history of tobacco abuse. 4. Recommend 2 weeks high-protein low caloric diet prior to surgical intervention. 5. She is pending revision to her gastric bypass following complications from her sleeve gastrectomy. 6. Inpatient hospitalization advised more than 2 days hospitalization is anticipated. 7. DVT prophylaxis. 8. Antibiotic prophylaxis.
== END | disposition home or self-care (01) ==
LOC: BARWHC3 09:11
PROVIDERS: ATTEND Surgery Plastic and Reconstructive Surgery
DX: E66.01 Morbid (severe) obesity due to excess calories (principal); K21.9 Gastro-esophageal reflux disease without esophagitis; K44.9 Diaphragmatic hernia without obstruction or gangrene; I11.9 Hypertensive heart disease without heart failure; D50.9 Iron deficiency anemia, unspecified; E60 Dietary zinc deficiency; E55.9 Vitamin D deficiency, unspecified; N39.0 Urinary tract infection, site not specified; Z79.899 Other long term (current) drug therapy; Z88.6 Allergy status to analgesic agent; Z68.43 Body mass index [BMI] 50.0-59.9, adult
CPT/HCPCS: 99211

== ENCOUNTER → 2017-04-12 | Outpatient (CLI) | payer MEDICARE, OTHER ==
[2017-04-12 14:28] VITALS: BMI 59.8
== END | disposition home or self-care (01) ==
LOC: BARWHC3 08:44
PROVIDERS: ATTEND Surgery Plastic and Reconstructive Surgery
DX: E66.01 Morbid (severe) obesity due to excess calories (principal)
CPT/HCPCS: 97804

== ENCOUNTER → 2017-05-04 | Outpatient (CLI) | payer MEDICARE, OTHER ==
[2017-05-04 11:56] LABS: ALT 26 U/L (9-52); AST 16 U/L (14-36); Alkaline Phosphatase 89 U/L (38-126); Anion Gap 11 mmol/L; Blood Urea Nitrogen 13 mg/dL (7-17); Calcium 8.8 mg/dL (8.4-10.2); Carbon Dioxide 26 mmol/L (22-30); Chloride 106 mmol/L (98-107); Glucose 83 mg/dL (74-99); Non-African American GFR(MDRD) >60 (>60 ml/min/1.73 sqM); Potassium 4.2 mmol/L (3.5-5.1); Sodium 143 mmol/L (137-145); Total Bilirubin 0.5 mg/dL (0.2-1.3); Total Protein 7.8 g/dL (6.3-8.2)
[2017-05-04 12:33] LABS: Anisocytosis Slight; Basophils # (A) 0.1 k/uL (0-0.2); Basophils % (A) 1 %; CH 23.4; Eosinophils # (A) 0.3 k/uL (0-0.7); Eosinophils % (A) 3 %; HCT 39.1 % (34.0-46.0); HGB 12.2 gm/dL (11.4-16.0); Hypochromasia Moderate; Luc # (Auto) 0.14; Luc % (Auto) 2; Lymphocytes # (A) 2.6 k/uL (1.0-4.8); Lymphocytes % (A) 33 %; MCH 23.7 pg (25.0-35.0); MCHC 31.2 g/dL (31.0-37.0); MCV 75.7 fL (80.0-100.0); Mean Platelet Volume 6.1; Microcytosis Slight; Monocytes # (A) 0.3 k/uL (0-1.0); Monocytes % (A) 4 %; Neutrophils # (A) 4.5 k/uL (1.3-7.7); Neutrophils % (A) 57 %; RBC 5.16 m/uL (3.80-5.40); RDW 16.9 % (11.5-15.5); WBC (Perox) 8.45
== END | disposition home or self-care (01) ==
LOC: LABPAT 11:14
PROVIDERS: ATTEND Surgery Plastic and Reconstructive Surgery
DX: Z01.812 Encounter for preprocedural laboratory examination (principal)
CPT/HCPCS: 80053; 85025

== ENCOUNTER 2017-05-11 11:36 | Inpatient (IN) | payer MEDICARE, OTHER ==
--- NOTE | 2017-05-11 10:18 | P.GSHP ---
History of Present Illness H&P Date: 05/11/17 DATE OF SERVICE: 05/11/2017 CHIEF COMPLAINT: Complications from sleeve gastrectomy. HISTORY OF PRESENT ILLNESS: Lety De La Rosa is a 31-year-old female who had a sleeve gastrectomy performed at [facility] in 2013. She is 3 years out. She reports chronic complications from her sleeve gastrectomy including persistent epigastric abdominal pain She has history of symptomatic gastroesophageal reflux disease including diaphragmatic hiatal hernia for which reports chronic epigastric abdominal pain. Despite her sleeve gastrectomy, she still morbidly obese. She does has history of chronic urinary tract infection which her last urine sample demonstrates persistent infection. At her height of 5 feet 10-1/4 inches, she still is moderately overweight by 246 pounds. Her initial weight was 499 pounds. She comes in weighing 419 pounds. Her ideal body weight is 173 pounds. She has maintained an 80 pound weight loss after 3 years. Percent excess weight loss is 27%. Body mass index is reduced from 71.2 down to 60.3. PAST MEDICAL HISTORY: 1. Morbid obesity. 2. Iron deficiency anemia. 3. Hypertensive heart disease. 4. Gastroesophageal reflux disease. 5. Depression. 6. Asthma. 7. Chronic pain. 8. Diaphragmatic hiatal hernia. PAST SURGICAL HISTORY: 1. Sleeve gastrectomy in July 2013. 2. section. 3. Cholecystectomy. 4. Upper endoscopy. MEDICATIONS: 1. Zinc. 2. Omeprazole. 3. Multivitamin. 4. Reglan. 5. [place]. 6. Gabapentin. 7. Vitamin D. 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 REVIEW OF SYSTEMS: CONSTITUTIONAL: [place] body weight is 173 pounds. Highest weight of 499 pounds. GASTROINTESTINAL: Has severe gastroesophageal reflux disease including symptomatic diaphragmatic hiatal hernia with complications from her sleeve gastrectomy. PSYCH: History of depression without any recent suicidal ideation. HEENT: She wears glasses. No reports of troubles with hearing or nasal drainage. No reports of active dysphagia to solid foods. RESPIRATORY: Has prior history of obstructive sleep apnea. Had recent computed tomography scan demonstrating no pulmonary embolism. CARDIOVASCULAR: History of hypertension. Has history of syncopal episode which has been unremarkable for cause. MUSCULOSKELETAL: Diffuse osteoarthritis especially of the knees and hips. NEURO: No reports of stroke or seizure disorder. HEMATOLOGIC: Denies any DVTs. PHYSICAL EXAM: VITAL SIGNS: 5 feet 10-1/4 inches, 412 pounds. Body mass index is 58.8 ABDOMEN: Protuberant, soft, nondistended. Nontender. GENERAL: Well-developed, pleasant female in no acute distress. HEENT: No scleral icterus. Extraocular movements grossly intact. No nasal drainage. NECK: Supple without lymphadenopathy. CHEST: Nonlabored respirations, equal bilateral excursions. CARDIOVASCULAR: Regular rate and rhythm. NEURO: No focal or lateralizing signs. Cranial nerves II through XII grossly within normal limits. PSYCH: Appropriate affect. Alert and oriented to person, place, and time. ASSESSMENT: 1. Morbid obesity due to excess calories. 2. Body mass index reduced from 69.8 to 60.3 3. Weight gain following bariatric procedure. 4. Epigastric abdominal pain. 5. 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 6. Gastroesophageal reflux disease. 7. Hypertensive heart disease. 8. History of obstructive sleep apnea. 9. Chronic pain syndrome. 10. Diaphragmatic hiatal hernia. 11. Iron deficiency anemia. 12. Vitamin D deficiency. 13. Zinc deficiency. 14. Dietary surveillance and counseling. 15. Gastric stenosis. 16. Tobacco use with tobacco cessation and counseling. 17. History of depression. 18. History of recent syncopal episode. 19. Chronic urinary tract infection. PLAN: 1. Recommend psych assessment for complete evaluation of her bariatric profile. 2. She will need a repeat urine test for history of chronic urinary tract infection. 3. Recommend urine cotinine test for history of tobacco abuse. 4. Recommend 2 weeks high-protein low caloric diet prior to surgical intervention. 5. Recommend revision to gastric bypass following complications from her sleeve gastrectomy. 6. Inpatient hospitalization advised more than 2 days hospitalization is anticipated. 7. DVT prophylaxis. 8. Antibiotic prophylaxis. Past Medical History Past Medical History: Asthma, GERD/Reflux, Hypertension, Osteoarthritis (OA) Additional Past Medical History / Comment(s): Abdominal pain, back pain, hiatal hernia, anemia History of Any Multi-Drug Resistant Organisms: None Reported Past Surgical History: Bariatric Surgery, Section, Cholecystectomy Additional Past Surgical History / Comment(s): 10/05/16 EGD with bx, sleeve gastrectomy 11-13. Past Anesthesia/Blood Transfusion Reactions: No Reported Reaction Smoking Status: Former smoker - Past Family History Mother Family Medical History: No Reported History Father Family Medical History: Coronary Artery Disease (CAD) Additional Family Medical History / Comment(s): Father is 64yrs old. He has had a CABG. Medications and Allergies Home Medications Medication Instructions Recorded Confirmed Type Gabapentin 600 mg PO TID PRN 09/23/16 05/03/17 History HYDROcodone/APAP 10-325MG [[place] 1 tab PO TID PRN 09/23/16 05/03/17 History 10-325] Multivitamins, Thera [Multivitamin] 1 tab PO DAILY 09/23/16 05/03/17 History Ergocalciferol [Vitamin D2 50,000 unit PO TH 10/02/16 05/03/17 History (NORBERTO)] Omeprazole 40 mg PO DAILY #90 capsule. 10/17/16 05/03/17 Rx Nystatin 1 applic TOPICAL DAILY PRN 02/04/17 05/03/17 History DULoxetine HCL [Cymbalta] 30 mg PO BID 05/03/17 05/03/17 History Ferrous Sulfate [Feosol] 325 mg PO BID 05/03/17 05/03/17 History Allergies Allergy/AdvReac Type Severity Reaction Status Date / Time ibuprofen [From Motrin] Allergy Anaphylaxis Verified 05/03/17 10:40 iron Allergy Anaphylaxis Verified 05/03/17 11:10 to IV iron
[~2017-05-11 11:36] MED LIST changes: +ACETAMINOPHEN IV (For NPO) 1,000 MG in EMPTY BAG 1 BAG IVPB ONE; +CHLORHEXIDINE GLUCONATE 15 ML CUP MUCOUS MEM ONE; +DEXAMETHASONE SOD PHOSPHATE 10 MG/ML 1 ML VIAL IV ONE; +ENOXAPARIN 40 MG/0.4 ML SYRINGE SQ STA; +HYDROmorphone 1 MG/ML 1 ML SYRINGE IVP PRN; -LACTATED RINGERS 1,000 ML IV SCH; +LIDOCAINE 1% 20 ML VIAL (10MG/ML) FOR IV START INTRADERMA PRN; +ONDANSETRON 4 MG/2 ML VIAL IVP ONE; +PANTOPRAZOLE 40 MG/10 ML VIAL IV STA; +Pre Op ABX Message 1 EACH MISC MISCELLANE ONE; +SCOPOLAMINE 1.5MG/72HR PATCH TRANSDERM ONE
[2017-05-11] MEDS: LACTATED RINGERS 1,000 ML IV SCH (12:56)
[2017-05-11] MEDS ORDERED: SUCCINYLCHOLINE CHLORIDE VIAL 200 MG/10 ML VIAL IV ONE (13:55)
[2017-05-11] MEDS ORDERED: PROPOFOL 10 MG/ML 20 ML VIAL IV ONE (13:55)
[2017-05-11] MEDS ORDERED: GLYCOPYRROLATE 0.2 MG/ML 2 ML VIAL ONE (13:55)
[2017-05-11] MEDS ORDERED: VECURONIUM 10 MG VIAL IV ONE (13:55)
[2017-05-11] MEDS ORDERED: LIDOCAINE 1% INJ 10MG/ML (20 ML MDV) ONE (13:55)
[2017-05-11] MEDS ORDERED: NEOSTIGMINE 1 MG/ML 10 ML VIAL ONE (13:55)
[2017-05-11] MEDS ORDERED: MIDAZOLAM 2 MG/2 ML VIAL ONE (13:55)
[2017-05-11] MEDS ORDERED: fentaNYL (PF) 50 MCG/ML 2 ML AMP ONE (13:55)
[2017-05-11] MEDS ORDERED: LACTATED RINGERS 1,000 ML IV ONE ×2 (13:55→17:49)
[2017-05-11] MEDS ORDERED: WATER FOR INJECTION, STERILE 10 ML VIAL IV ONE (13:55)
[2017-05-11] MEDS ORDERED: ONDANSETRON 4 MG/2 ML VIAL ONE (13:55)
[2017-05-11] MEDS ORDERED: ceFAZolin 3 GM in SODIUM CHLORIDE 0.9% 100 ML IVPB ONE (14:19)
[2017-05-11] MEDS ORDERED: BUPIVACAIN-EPI 0.5%-1:200,000 30 ML VIAL SQ ONE (15:03)
[2017-05-11] MEDS ORDERED: diphenhydrAMINE 50 MG/ML 1 ML VIAL IVP ONE (19:04)
[2017-05-11] MEDS ORDERED: ONDANSETRON 4 MG/2 ML VIAL IVP PRN (19:22)
[2017-05-11] MEDS ORDERED: NALOXONE 0.4 MG/ML 1 ML VIAL IV PRN (19:22)
[2017-05-11] MEDS ORDERED: HYDROcodone/APAP 15 ML SOLUTION PO PRN (19:22)
[2017-05-11] MEDS ORDERED: HYOSCYAMINE ORAL DROPS 1.875 MG/15 ML BOTTLE PO PRN (19:22)
[2017-05-11] MEDS ORDERED: SIMETHICONE 40 MG/0.6 ML DROPS 2,000 MG/30 ML BOTTLE PO PRN (19:22)
--- NOTE | 2017-05-11 19:34 | P.PCN ---
Date of Procedure: 05/11/17 Preoperative Diagnosis: Av obesity, hiatal hernia, epigastric abdominal pain Postoperative Diagnosis: Same, severe malignant intra-abdominal adhesions involving the mid abdomen or pelvis as well as small bowel, paraesophageal hiatal hernia incarcerated 6 cm Procedure(s) Performed: 1. Laparoscopic extensive lysis of adhesions over 1.5 hours involving epigastrium, mid abdomen and pelvis. 2. Laparoscopic reduction and repair of an incarcerated paraesophageal midline 5 cm diaphragmatic hiatal hernia with mesh 3. Intraoperative esophagogastroduodenoscopy Implants: Anesthesia: GETA, local Surgeon: Natalia Ambrocio Estimated Blood Loss (ml): 20 Pathology: none sent Condition: stable Disposition: floor Indications for Procedure: Operative Findings: 1. Severe epigastric including lower midline and pelvic adhesions involving the greater omentum to the anterior abdominal wall. 2. Severe interloop adhesions involving the jejunum as well as ileum throughout the small intestine. 3. Extensive lysis of adhesions over 1.5 hours to address all intraloop adhesions as well as peritoneal adhesions hence abandoning gastric bypass from severity of adhesions. 4. Laparoscopic reduction and repair of 5 cm incarcerated paraesophageal hernia. 5. Moderate size sleeve gastrectomy from previous operation. 6. Hiatal hernia repair consistent with a 52-Chinese bougie. 56-Chinese bougie also passed with edema. 7. Negative leak test. Description of Procedure:
[2017-05-11] MEDS: 0.9% NACL WITH KCL 20 MEQ/L 1,000 ML IV SCH (20:44)
[2017-05-11] MEDS: ALBUTEROL NEBULIZED 2.5 MG/3 ML INHALATION SCH (21:09)
[2017-05-11] MEDS ORDERED: RX INFO: IV CONTRAST WAS GIVEN 1 EACH MISC MISCELLANE PRN (21:10)
[2017-05-11 21:13] LABS: Glucose,Whole Blood 162 mg/dL (75-99)
--- NOTE | 2017-05-11 21:37 | CT ---
EXAMINATION TYPE: CT brain wo con DATE OF EXAM: 05/11/2017 COMPARISON: NONE HISTORY: Right side numbness. CT DLP: 1069.2 mGycm. Automated Exposure Control for Dose Reduction was Utilized. TECHNIQUE: CT scan of the head is performed without contrast. FINDINGS: There is no acute intracranial hemorrhage, mass effect, or midline shift identified. The ventricles and sulci are within normal limits in size. The globes are intact and the visualized sin uses are clear. IMPRESSION: NO ACUTE PROCESS.
--- NOTE | 2017-05-11 22:02 | P.PN ---
Progress Note - Text I was contacted by the patient's nurse regarding the patient having right leg numbness including being nonresponsive less than 2-1/2 hours from her surgery. Patient has been baseline somnolent since surgery. The stroke team then assessed her and applied sternal rub where she was difficult to arouse per their report. On further discussion of the stroke team, Narcan was not given. I was not notified of the immediate event until more than 30 minutes after events had transpired. Her vital signs had been steady including heart rate of 101, systolic blood pressure over 150, O2 sat over 96%, respiration of 16. The patient is barely 3- 4 hours out from her surgery. The patient has past history of vasovagal episodes her last event barely 3 months ago. Her nurse activated the stroke team and the patient was sent down to CT for head and angiogram which my personal assessment of her studies are negative for acute bleed or stroke or ischemic event. Patient has no facial droop. She is alert. She is complaining of epigastric and supxiphoid discomfort as she had recent hiatal hernia repair. On exam, she has reports decreased sensation along the proximal lateral thigh to the leg along the right side following surgery however her right leg from her hip to knee were rigid. She had difficulty relaxing her right knee. She has no flaccidity along any of her extremities. She was also rubbing her chest with her right arm. The stroke team was present and had reposition the patient within the bed by elevating her. With the patient's history of vasovagal response in the recent past including recent surgery and barely 2 - 3 hours following her surgery at the time of her surgery, I recommended continuing IV fluid hydration and oxygenation. We'll repeat labs for the morning. Patient was reassured as her symptoms is likely following prolonged positioning during surgery regarding her right thigh and leg. I have requested reassignment of the patient to their most senior nurse given the complexity of her bariatric care.
[2017-05-11] MEDS ORDERED: LORazepam 2 MG/ML SYRINGE IV PRN (22:04)
[2017-05-11] MEDS ORDERED: diphenhydrAMINE 50 MG/ML 1 ML VIAL IVP PRN (22:27)
--- NOTE | 2017-05-11 22:27 | CT ---
EXAMINATION TYPE: CT angio head neck DATE OF EXAM: 05/11/2017 HISTORY: Right sided weakness. COMPARISON: NONE CT DLP: 808.3 mGycm. Automated Exposure Control for Dose Reduction was Utilized. TECHNIQUE: CTA scan of the neck is performed with IV Contrast, patient injected with 65 mL of Omnipa que 350, axial images are obtained, coronal and sagittal reformatted images are reviewed. Three-D rec onstructed images are created on an independent workstation and reviewed. FINDINGS: ANTERIOR CIRCULATION: The origins of the great vessels at the aortic arch are widely patent. The righ t and left carotid systems are widely patent. Both the right and left ICAs are tortuous within the ne ck, nearly kissing each other at the midline in the retropharyngeal position, but they are otherwise unremarkable, and their intracranial extent is unremarkable. The anterior and middle cerebral arterie s are widely patent bilaterally and unremarkable. POSTERIOR CIRCULATION: The right and left vertebral arteries are widely patent throughout their exten t. The basilar artery and remainder of the posterior circulation is widely patent and unremarkable. INTRACRANIAL SOFT TISSUES: Negative as seen. EXTRACRANIAL SOFT TISSUES: There are numerous subcentimeter gas bubbles seen bilaterally within the s uperior mediastinum, the infrahyoid neck, and the suprahyoid neck up to the level of the nasopharynx. The airway is unremarkable itself, but the thoracic esophagus is noted to be air distended throughou t its visualized extent - which is at the axial level of the main pulmonary artery. SKELETAL STRUCTURES: Negative as seen. IMPRESSION: 1. CTA HEAD AND NECK UNREMARKABLE. 2. ABNORMAL GAS PATTERN DOCUMENTED WITHIN THE MEDIASTINUM AND DISSECTING THROUGH THE SOFT TISSUES OF THE NECK - WITH ETIOLOGY YET UNCLEAR. WOULD ADVISE CONTINUATION OF THE CT IMAGING THROUGH THE CHES T.
[2017-05-11] MEDS: HYDROmorphone 1 MG/ML 1 ML SYRINGE IVP PRN (22:45)
[2017-05-11] MEDS: SODIUM CHLORIDE 0.9% 1,000 ML IV SCH (22:51)
[2017-05-11 23:06] LABS: Anisocytosis Slight; Basophils % (A) 0 %; CH 23.3; CHCM 32.4; Eosinophils # (A) 0.1 k/uL (0-0.7); Eosinophils % (A) 1 %; HCT 35.9 % (34.0-46.0); HDW 3.03; HGB 12.2 gm/dL (11.4-16.0); Hypochromasia Slight; Luc # (Auto) 0.06; Luc % (Auto) 1; Lymphocytes # (A) 0.7 k/uL (1.0-4.8); Lymphocytes % (A) 6 %; MCH 24.5 pg (25.0-35.0); MCHC 33.9 g/dL (31.0-37.0); MCV 72.2 fL (80.0-100.0); Mean Platelet Volume 7.1; Microcytosis Moderate; Monocytes # (A) 0.2 k/uL (0-1.0); Monocytes % (A) 2 %; Neutrophils # (A) 9.6 k/uL (1.3-7.7); Neutrophils % (A) 90 %; RBC 4.97 m/uL (3.80-5.40); RDW 16.7 % (11.5-15.5); WBC 10.7 k/uL (3.8-10.6); WBC (Perox) 11.43
[2017-05-11 23:15] LABS: Anion Gap 11 mmol/L; Calcium 9.1 mg/dL (8.4-10.2); Carbon Dioxide 21 mmol/L (22-30); Chloride 109 mmol/L (98-107); Glucose 125 mg/dL (74-99); Non-African American GFR(MDRD) >60 (>60 ml/min/1.73 sqM); Sodium 141 mmol/L (137-145)
[2017-05-11 23:16] LABS: Blood Urea Nitrogen 11 mg/dL (7-17); Phosphorous 3.1 mg/dL (2.5-4.5); Potassium 5.1 mmol/L (3.5-5.1)
[2017-05-12] MEDS: SODIUM CHLORIDE 0.9% 1,000 ML IV SCH (00:32)
[2017-05-12] MEDS: SIMETHICONE 40 MG/0.6 ML DROPS 2,000 MG/30 ML BOTTLE PO SCH ×5 (00:32→23:46)
[2017-05-12] MEDS: HYOSCYAMINE ORAL DROPS 1.875 MG/15 ML BOTTLE PO SCH ×5 (00:33→23:46)
[2017-05-12] MEDS: ceFAZolin 3 GM in SODIUM CHLORIDE 0.9% 100 ML IVPB SCH ×2 (00:41→07:52)
[2017-05-12] MEDS: LACTATED RINGERS 1,000 ML IV SCH ×5 (02:32→12:53)
[2017-05-12] MEDS: 0.9% NACL WITH KCL 20 MEQ/L 1,000 ML IV SCH (03:59)
[2017-05-12 07:10] LABS: Anion Gap 8 mmol/L; Blood Urea Nitrogen 8 mg/dL (7-17); Calcium 8.4 mg/dL (8.4-10.2); Carbon Dioxide 23 mmol/L (22-30); Chloride 109 mmol/L (98-107); Non-African American GFR(MDRD) >60 (>60 ml/min/1.73 sqM); Phosphorous 3.8 mg/dL (2.5-4.5); Potassium 4.5 mmol/L (3.5-5.1); Sodium 140 mmol/L (137-145)
[2017-05-12] MEDS: ALBUTEROL NEBULIZED 2.5 MG/3 ML INHALATION SCH ×4 (07:20→21:01)
[2017-05-12] MEDS: HYDROmorphone 1 MG/ML 1 ML SYRINGE IVP PRN ×3 (07:52→23:47)
[2017-05-12 08:14] LABS: Anisocytosis Slight; Basophils % (A) 0 %; CH 23.5; Eosinophils % (A) 0 %; HCT 35.8 % (34.0-46.0); HDW 3.04; HGB 11.7 gm/dL (11.4-16.0); Hypochromasia Slight; Luc # (Auto) 0.08; Luc % (Auto) 1; Lymphocytes # (A) 1.6 k/uL (1.0-4.8); Lymphocytes % (A) 17 %; MCH 24.1 pg (25.0-35.0); MCHC 32.6 g/dL (31.0-37.0); MCV 73.9 fL (80.0-100.0); Mean Platelet Volume 7.1; Microcytosis Moderate; Monocytes # (A) 0.5 k/uL (0-1.0); Monocytes % (A) 5 %; Neutrophils # (A) 7.2 k/uL (1.3-7.7); Neutrophils % (A) 77 %; RBC 4.85 m/uL (3.80-5.40); RDW 16.8 % (11.5-15.5); WBC 9.4 k/uL (3.8-10.6); WBC (Perox) 9.98
[2017-05-12] MEDS: PANTOPRAZOLE 40 MG/10 ML VIAL IV SCH (08:55)
[2017-05-12] MEDS: ENOXAPARIN 40 MG/0.4 ML SYRINGE SQ SCH (08:55)
[2017-05-12 11:19] VITALS: BMI 60.4
[2017-05-12] MEDS: 1: MVI, ADULT NO.4 WITH VIT K 10 ML, THIAMINE 100 MG, FOLIC ACID 1 MG, POTASSIUM CHLORID IV SCH ×6 (11:24)
[2017-05-12] MEDS ORDERED: SODIUM CHLORIDE 0.9% 1,000 ML BAG ONE (11:24)
--- NOTE | 2017-05-12 11:41 | P.PN ---
<Vidhi Henry M - Last Filed: 05/12/17 11:27> Subjective 31-year-old female being seen on rounds this morning currently resting in bed. Did note the patient had an episode last evening of right leg numbness somnolent after surgery yesterday. Nursing did activate the stroke team and the patient was sent down for CT of the head and angiogram the studies were negative for acute bleed or stroke or ischemic event. There was no facial droop. Patient was alert. Patient did report having decreased sensation on the right proximal lateral thigh . Patient does have a history of a vasovagal response in the past including recent surgery . Patient was reassured that her symptoms were likely following a prolonged position during surgery in regards to the right thigh and leg . This morning the patient states the symptoms have resolved is currently sitting up in bed does not appear in any acute distress. Does report having an episode of left hand tingling which also has resolved. Patient is postop May 11 laparoscopic extensive lysis of adhesions over 1.5 hours involving epigastrium , mid abdomen and pelvis, reduction and repair of a incarcerated periesophageal midline 5 cm diaphragmatic hiatus hernia with mesh done for severe malignant intra-abdominal adhesions involving the mid abdomen pelvis as well as small bowel, paraesophageal hiatal hernia incarcerated 6 cm Objective - Vital Signs Vital signs: Vital Signs Temp 97.4 F L 05/12/17 06:50 Pulse 62 05/12/17 11:16 Resp 20 05/12/17 10:23 BP 132/85 05/12/17 06:50 Pulse Ox 99 05/12/17 07:24 Intake & Output 05/11/17 05/12/17 05/12/17 18:59 06:59 18:59 Intake Total 2075 3425 Output Total 120 2775 450 Balance 1954 650 -450 Weight 191 kg 191 kg Intake: IV 2075 1425 0.9% NaCl with KCl 20 Meq 1200 /l 1,000 ml @ 150 mls/hr IV .Q6H40M EDINSON Rx#: [id number] Intake, IV Titration 2000 Amount Sodium Chloride 0.9% 1, 2000 000 ml @ 999 mls/hr IV . Q1H1M EDINSON Rx#:[id number] Output: Urine 100 2775 450 Uretheral (Cerna) 2775 450 Estimated Blood Loss 20 Other: Voiding Method Indwelling Catheter Indwelling Catheter - Exam GENERAL APPEARANCE: 31-year-old female morbidly obese patient is alert, oriented 3, in no acute distress. Resting in bed VITAL SIGNS: Reviewed HEENT: Head is normocephalic and atraumatic. Pupils are equal and reactive. The nares are patent. Oropharynx is clear without lesions. NECK: Supple without lymphadenopathy. Traches midline. HEART: S1, S2. Regular rate and rhythm. Denying chest pain no murmur LUNGS: No crackles or wheezes are heard. Adequate air movement bilaterally ABDOMEN: Soft, obese nontender, nondistended with good bowel sounds. No peritoneal signs. No palpable organomegaly or masses. Indwelling Cerna catheter in place laparoscopic surgical sites no redness benign EXTREMITIES: Normal skin color and turgor. No cyanosis, rash, ulceration, clubbing or edema. Radial pedal pulses are 2/4 bilaterally. Moves all extremities appropriately adequate sensation adequate strength currently denying any numbness involving the extremities NEUROLOGICAL: No focal deficits. Strength and sensation are grossly intact. - Labs CBC & Chem 7: 05/12/17 06:36 05/12/17 06:36 Labs: Abnormal Lab Results - Last 24 Hours (Table) 05/11/17 05/11/17 05/11/17 Range/Units 20:53 22:34 22:34 WBC 10.7 H (3.8-10.6) k/uL MCV 72.2 L (80.0-100.0) fL MCH 24.5 L (25.0-35.0) pg RDW 16.7 H (11.5-15.5) % Neutrophils # 9.6 H (1.3-7.7) k/uL Lymphocytes # 0.7 L (1.0-4.8) k/uL Chloride 109 H (98-107) mmol/L Carbon Dioxide 21 L (22-30) mmol/L Glucose 125 H (74-99) mg/dL POC Glucose (mg/dL) 162 H (75-99) mg/dL 05/12/17 05/12/17 Range/Units 06:36 06:36 WBC (3.8-10.6) k/uL MCV 73.9 L (80.0-100.0) fL MCH 24.1 L (25.0-35.0) pg RDW 16.8 H (11.5-15.5) % Neutrophils # (1.3-7.7) k/uL Lymphocytes # (1.0-4.8) k/uL Chloride 109 H (98-107) mmol/L Carbon Dioxide (22-30) mmol/L Glucose (74-99) mg/dL POC Glucose (mg/dL) (75-99) mg/dL Microbiology - Last 24 Hours (Table) 05/11/17 13:00 Urine Culture - Preliminary Urine,Clean Catch Assessment and Plan Plan: Impression Morbid obesity BMI 60 Microscopic extensive lysis of adhesions over 1.5 hours involving epigastrium, mid abdomen and pelvis with repair of an incarcerated paraesophageal midline 5 cm diaphragmatic hiatal hernia with mesh done on May 11 Intraoperative esophagogastroduodenoscopy done on May 11 Chronic pain Depressive disorder nonspecified Gastroesophageal reflux disease Iron deficiency anemia History July 2013 sleeve gastrectomy Plan Continue postop surgical care PT OT eval Pain control DVT and GI prophylaxis Increase activity Encourage the use of the incentive spirometer Dietary consult for nutritional support nothing by mouth except ice chips The above impression and plan of care have been discussed and directed by signing physician. Vidhi Henry nurse practitioner acting as scribe for signing physician. <Natalia Ambrocio N - Last Filed: 05/13/17 16:41> Objective - Vital Signs Vital signs: Vital Signs Temp 98.4 F 05/13/17 07:24 Pulse 84 05/13/17 08:11 Resp 18 05/13/17 01:55 BP 152/70 05/13/17 07:24 Pulse Ox 98 05/13/17 07:58 Intake & Output 05/12/17 05/13/17 05/13/17 18:59 06:59 18:59 Output Total 450 Balance -450 Weight 191 kg 191 kg Output: Urine 450 Uretheral (Cerna) 450 Other: Voiding Method Indwelling Catheter Toilet # Voids 1 1 - Labs CBC & Chem 7: 05/12/17 06:36 05/12/17 06:36 Labs: Microbiology - Last 24 Hours (Table) 05/11/17 13:00 Urine Culture - Final Urine,Clean Catch
--- NOTE | 2017-05-12 13:21 | FL ---
EXAMINATION TYPE: FL esophagus cervic/pharynx DATE OF EXAM: 05/12/2017 HISTORY: Status post hiatal hernia repair COMPARISON: CT abdomen pelvis 10/16/2016 TECHNIQUE: A single contrast esophagram is performed utilizing air and barium. Attention directed t o the gastroesophageal junction FINDINGS: Gastroesophageal junction shows no obstruction to flow. There is no extravasation. Patient is status post gastric sleeve. There are some limitations due to patient body habitus, motion. Basilar atelecta tic changes noted incidentally. Patient is status post cholecystectomy. IMPRESSION: No evident complication status post hiatal hernia repair.
--- NOTE | 2017-05-12 19:14 | P.PN ---
Progress Note - Text Patient seen and evaluated. Her family and father are at bedside. Her numbness has resolved. She denies any weakness of her extremities. Her shoulder pain and epigastric abdominal pain is also resolved. She confirms moderate scar tissue in the abdomen secondary to an open performed above the umbilicus. She denies any further reflux disease. She completed an esophagram which demonstrated no leaks or extravasation. Intraoperative findings were described in detail with her including severe intra -abdominal adhesions preventing her gastric bypass at this time. She is aware that a staged approach for her gastric bypass will be performed. Per family and patient request, surgical intervention for August to complete her gastric bypass at that time. Will start bariatric clears. Anticipated discharge tomorrow.
[2017-05-13 03:48] VITALS: RESP 18
[2017-05-13] MEDS: SIMETHICONE 40 MG/0.6 ML DROPS 2,000 MG/30 ML BOTTLE PO SCH ×2 (05:30→12:04)
[2017-05-13] MEDS: HYOSCYAMINE ORAL DROPS 1.875 MG/15 ML BOTTLE PO SCH ×2 (05:31→12:04)
[2017-05-13] MEDS: LACTATED RINGERS 1,000 ML IV SCH ×2 (07:02→07:03)
[2017-05-13] MEDS: 1: MVI, ADULT NO.4 WITH VIT K 10 ML, THIAMINE 100 MG, FOLIC ACID 1 MG, POTASSIUM CHLORID IV SCH ×12 (07:02→07:03)
[2017-05-13 07:25] VITALS: BP 152/70; TEMP 98.4
[2017-05-13] MEDS: ALBUTEROL NEBULIZED 2.5 MG/3 ML INHALATION SCH ×2 (07:57→11:48)
[2017-05-13] MEDS ORDERED: BISACODYL 5 MG TABLET.DR PO PRN (08:00)
[2017-05-13 08:12] VITALS: PULSE 84
[2017-05-13] MEDS: PANTOPRAZOLE 40 MG/10 ML VIAL IV SCH (08:33)
[2017-05-13] MEDS: ENOXAPARIN 40 MG/0.4 ML SYRINGE SQ SCH (08:33)
--- NOTE | 2017-05-13 09:11 | P.PN ---
Progress Note - Text Patient seen and evaluated. She tolerated her bariatric clears. No reports of dysphagia. No overnight events. Plan for discharge today. Follow up next week in bariatric center. Discharge medications reviewed and adjusted.
--- NOTE | 2017-05-13 16:46 | P.PN ---
Subjective Principal diagnosis: Morbid obesity The patient is status post attempted gastric bypass however curtailed to a hiatal hernia repair and extensive lysis of adhesions. She has tolerated her clear liquid diet. No reports of nausea and vomiting. Her shoulder pain is resolved. Epigastric abdominal pain is improved. She is ambulating. Her numbness along her leg is resolved. Objective - Vital Signs Vital signs: Vital Signs Temp 98.4 F 05/13/17 07:24 Pulse 84 05/13/17 08:11 Resp 18 05/13/17 01:55 BP 152/70 05/13/17 07:24 Pulse Ox 98 05/13/17 07:58 Intake & Output 05/12/17 05/13/17 05/13/17 18:59 06:59 18:59 Output Total 450 Balance -450 Weight 191 kg Output: Urine 450 Uretheral (Cerna) 450 Other: Voiding Method Indwelling Catheter Toilet # Voids 1 1 - Exam GENERAL: Well developed and in no acute distress. Pleasant. HEENT: No sclera icterus. Extraocular movements grossly intact. Moist buccal mucosa. Head is atraumatic, normocephalic. Hears conversational speech. No nasal drainage. NECK: Supple without lymphadenopathy. No JV distention. CHEST: Non-labored respirations and equal bilateral excursions. CARDIOVASCULAR: Regular rate and rhythm. Palpable 2+ radial pulses. ABDOMEN: Soft, nontender. Nondistended. and infection. All incisions clean dry and intact. MUSCULOSKELETAL: No clubbing, cyanosis or edema. NEUROLOGIC: No focal or lateralizing signs. PSYCH: Appropriate affect. Alert and oriented to person, place and time. SKIN: Good skin turgor. Will perfused. - Labs CBC & Chem 7: 05/12/17 06:36 05/12/17 06:36 Labs: Microbiology - Last 24 Hours (Table) 05/11/17 13:00 Urine Culture - Final Urine,Clean Catch Assessment and Plan (1) Morbid (severe) obesity due to excess calories Status: Acute (2) BMI 60.0-69.9, adult Status: Acute (3) Hypertension Status: Acute (4) Hiatal hernia Status: Chronic (5) History of sleeve gastrectomy Status: Chronic (6) Hypertensive heart disease Status: Chronic (7) Iron deficiency anemia Status: Chronic (8) Morbid obesity Status: Chronic (9) Sleep apnea Status: Chronic Plan: 1. Clinically she has improved. May be discharged home. 2. Discharge diet was reviewed in detail. She will continue with bariatric clears.
--- NOTE | 2017-05-23 21:36 | P.OP ---
Date of Procedure: 05/11/17 Description of Procedure: DESCRIPTION OF PROCEDURE(S): SURGEON: SCOTTY ALBERTO MD JEWEL[employer] INTERNSHIP: 1. Avril Gonzalez 2. Rosas Tovar PREOPERATIVE DIAGNOSES: 1. Morbid obesity due to excess calories. 2. Body mass index reduced from 69.8 to 60.4 3. Weight gain following bariatric procedure. 4. Epigastric abdominal pain. 5. 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 6. Gastroesophageal reflux disease. 7. Hypertensive heart disease. 8. History of obstructive sleep apnea. 9. Chronic pain syndrome. 10. Diaphragmatic hiatal hernia. 11. Iron deficiency anemia. 12. Vitamin D deficiency. 13. Zinc deficiency. 14. Dietary surveillance and counseling. 15. Gastric stenosis. 16. Tobacco use with tobacco cessation and counseling. 17. History of depression. 18. History of recent syncopal episode. 19. Chronic urinary tract infection. POSTOPERATIVE DIAGNOSES: 1. Morbid obesity due to excess calories. 2. Body mass index reduced from 69.8 to 60.4 3. Weight gain following bariatric procedure. 4. Epigastric abdominal pain. 5. 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 6. Gastroesophageal reflux disease. 7. Hypertensive heart disease. 8. History of obstructive sleep apnea. 9. Chronic pain syndrome. 10. Diaphragmatic hiatal hernia. 11. Iron deficiency anemia. 12. Vitamin D deficiency. 13. Zinc deficiency. 14. Dietary surveillance and counseling. 15. Gastric stenosis. 16. Tobacco use with tobacco cessation and counseling. 17. History of depression. 18. History of recent syncopal episode. 19. Chronic urinary tract infection. 20. Incarcerated recurrent midline paraesophageal diaphragmatic hiatal hernia 6 cm. 21. Severe malignant intra-abdominal adhesions involving the omentum, mid abdomen, pelvis as well as small bowel with obstruction. OPERATION: 1. Laparoscopic extensive lysis of adhesions over 1.5 hours involving epigastrium, mid abdomen and pelvis. 2. Attempted laparoscopic Savi-en-Y gastric bypass converted to laparoscopic reduction and repair of an incarcerated incarcerated midline diaphragmatic paraesophageal hiatal hernia 6 cm with mesh using [place] Biopatch A 8 x 8 cm 3. Intraoperative esophagogastroduodenoscopy Implants: [place] Biopatch A 8 x 8 cm ANESTHESIA: Gen. with local anesthetic ESTIMATED BLOOD LOSS: 20 mL SPECIMENS REMOVED: Diaphragmatic hiatal hernia. Operative Findings: 1. Severe epigastric including lower midline and pelvic adhesions involving the greater omentum to the anterior abdominal wall. 2. Severe interloop adhesions involving the jejunum as well as ileum. 3. Extensive lysis of adhesions over 1.5 hours to address all intraloop adhesions as well as peritoneal adhesions hence abandoning gastric bypass from severity of adhesions. 4. Laparoscopic reduction and repair of 6 cm incarcerated paraesophageal hernia. 5. Moderate size sleeve gastrectomy from previous operation. 6. Hiatal hernia repair consistent with a 52-English bougie. 7. 56-English bougie also passed with edema. 8. Negative leak test. INDICATIONS: Lety De La Rosa is a 31-year-old female who had a sleeve gastrectomy performed at [facility] in 2013. She is 3 years out. She reports chronic complications from her sleeve gastrectomy including persistent epigastric abdominal pain. She has history of symptomatic gastroesophageal reflux disease including diaphragmatic hiatal hernia for which she reports chronic epigastric abdominal pain. Despite her sleeve gastrectomy, she is still morbidly obese. She does has history of chronic urinary tract infection which her last urine sample demonstrated persistent infection. At her height of 5 feet 10-1/4 inches, she still is moderately overweight by 246 pounds. Her initial weight was 499 pounds. She comes in weighing 420 pounds. Her ideal body weight is 173 pounds. She has maintained an 80 pound weight loss after 3 years. Percent excess weight loss is 27%. Body mass index is reduced from 71.2 down to 60.4. For definitive management, she sought an anti-reflux operation such as Savi-en-Y gastric bypass. All surgical options for morbid obesity had been described using the [place] bariatric surgery collaborative data including comorbidity resolution and complication risk score. A second- generation bariatric consent form was described in detail including the possibility of protein malnutrition, leaks, gastrojejunal stricture, venous thrombosis, need for further surgery including the possibility of abandoning surgical intervention should risks outweigh benefits for which she demonstrated understanding. Benefits and risks of the procedure were described at length. Informed consent was obtained. DESCRIPTION: The patient was brought into the operating room theater. She was placed on a split leg table. Preoperatively she had received Lovenox subcutaneously for DVT prophylaxis. Additionally she had Peridex oral solution as an oral decontaminant. After general induction, the abdomen was prepped and draped in standard sterile fashion. A Cerna catheter was placed. Ioban draping was placed along the abdomen. The robotic da Nasra Si system was prepped and primed. The xiphoid to umbilicus was measured. Xiphoid to the top of the hip was marked. Proposed port sites were marked with indelible marker along the anterior axillary line bilaterally, mid clavicular line bilaterally with each port marked 10 cm from each other. The bookkeeper assistant port was marked along the right lateral lower abdominal wall. The robotic stapler port was marked for the right midclavicular line. A 10 mm 0 degrees laparoscopic trocar entry was performed along the left upper quadrant. The abdomen was insufflated to 15 mmHg pressure she tolerated well. Diagnostic laparoscopy demonstrated no injury to bowel, viscera, or mesentery. The liver surface was unremarkable. A large prominent diaphragmatic hiatal hernia was identified along the anterior hiatus. Additionally, severe lower midline and pelvic adhesions was identified involving the small bowel. The greater omentum was adherent to the anterior abdominal wall. Another 12-mm port was placed along the left lateral abdominal wall. A 12-mm separate port was also placed along the left anterior axillary line. Next, to address all adhesions, a Sonicision was used including with a laparoscopic scissors and blunt dissection to remove the adhesions along the anterior abdominal wall. Moderate interloop small bowel adhesions were identified involving the mid jejunum and extending to the ileum. Adhesions were also found adherent to the transverse mesocolon which was also sharply lysed. Multiple internal hernias were identified and also sharply lysed. Moderate extensive lysis of adhesions involving the greater omentum including the small bowel was performed well over 1-1/2 hours. Given the moderate involvement of the small bowel, the gastric bypass was abandoned to avoid increased risk of postoperative ileus including bowel obstruction. A 12 mm camera port was placed left lateral to the umbilicus, 20 cm distal to the xiphoid. Next, 13-mm robot stapler port was placed along the right lateral abdominal wall. The camera 12-mm port extended length was maintained along the epigastrium. An 8 mm robotic port was placed along the left upper abdominal wall after exchanging the 12 mm port. Another 8 mm robotic trocar was placed along the left lateral abdominal wall for the robotic third arm. An bookkeeper assistant 12 mm trocar was placed along the right lower abdomen under direct visualization approximately 5-7 cm distal to the stapler port. All bariatric length robotic trocars were used. Please note that the ports were placed 18 to 20 cm away from the target anatomy of the stomach. Care was taken to check that each robotic arm was safely away from collision with the bed or the patient. At the epigastrium, a medium sized Carol Ann liver retractor was placed under direct visualization with the Iron Hris Manager placed over the right shoulder of the patient. The additional third robotic arm was placed along the left aspect of the patient. The patient was repositioned in reverse Trendelenburg position after lowering the bed. The robot was docked over the patient. Using a grasper for arm 3, a grasper for arm 1, including vessel sealer for arm 2, the robotic system was docked and primed as described. Instruments were interchanged by the bookkeeper assistant including hook cautery, needle parcel post truck driver, and stapler. I had sat at the console. Attention was now brought to addressing the diaphragmatic hiatal hernia. The gastrohepatic ligament was unscarred. The gastrohepatic ligament was cleaved using a vessel sealer. Dense adhesions along the distal esophagus was encountered. Using careful dissection including with atraumatic graspers and vessel sealer tips, the hiataus was carefully taken down without injury to the bilateral vagi nerves. Separately, dense adhesions including from the hiatal hernia sac was encountered along the posterior portion of the esophagus with a lead point well into the mediastinum involving the mid esophagus. The esophagus was mobilized beyond the mid aspect of the esophagus. The phrenoesophageal ligament was mobilized. Once the esophagus was circumferentially dissected free, the midline hiatus defect was well over 5 cm in size in measurement. The left and right crura was identified. Significant mobilization of the distal to mid esophagus into the mediastinum was performed. Circumferentially, the hernia sac was excised and brought into the peritoneal cavity. Care was taken to avoid any gastrotomy to the incarcerated upper pole of the stomach. Intra-abdominal length of esophagus was over 3 cm. A moderate size gastric pouch was identified involving the superior pole of the stomach from her prior sleeve gastrectomy. Once the hiatus and crura was dissected, 2-0 VLOC suture was placed in several [id number] suture to reapproximate the diaphragmatic hiatus posteriorly. To buttress the repair, a [place] Biopatch A 8x8 cm was prepared along the back table and cut in a castillo-hole fashion as to reinforce the repair as an underlay. The mesh was placed along the crural repair and tagged using horizontal mattress sutures using 2-0 Surgidac. I went to the head of the bed to perform intraoperative esophagogastroduodenoscopy. An Olympus gastroscope was passed through posterior oropharynx, where the GE junction was found distal to the diaphragmatic hiatus. The intra-abdominal esophageal length obtained during the case was over 3 cm. No evidence of leaks were found either of the mucosal defects of the esophagus or stomach. The hiatal closure was consistent with a 52 English bougie. This concluded the endoscopic portion of the case. All instruments and pneumoperitoneum were evacuated from the abdominal cavity. The port correlating with the EEA stapler device was copiously irrigated with 1 L of warm normal saline solution and 20 mL of hydrogen peroxide. The fascial defect of the EEA stapler was closed using Ryan Gonzalez and 0 Vicryl. The rest of incisions were reapproximated using 3-0 Vicryl for deep subcutaneous tissue and dermis followed by 4-0 Monocryl in a running subcuticular fashion. Local anesthetic was infiltrated along the skin for postop analgesia. Dermabond was applied to the skin. OptiFoam dressing was placed along the EEA stapler site. At the end of the procedure, needle, sponge and instrument count had been verified correct by the surgical dressing maker. She had tolerated the procedure well and was extubated and taken to the postanesthesia unit in stable condition.
--- NOTE | 2017-05-23 22:07 | P.DS ---
Providers Date of admission: 05/11/17 11:36 Expected date of discharge: 05/13/17 Attending physician: Natalia Ambrocio Primary care physician: Stated None - Discharge Diagnosis(es) (1) Anxiety Status: Acute (2) BMI 60.0-69.9, adult Status: Acute (3) Hypertension Status: Acute (4) Intractable vomiting with nausea Status: Acute (5) Morbid (severe) obesity due to excess calories Status: Acute (6) Panniculitis Status: Acute (7) Depression Status: Chronic (8) Epigastric abdominal pain Status: Chronic (9) Hiatal hernia Status: Chronic (10) History of sleeve gastrectomy Status: Chronic (11) Hypertensive heart disease Status: Chronic (12) Sleep apnea Status: Chronic (13) Somnolence Status: Acute Hospital Course: 1. Morbid obesity due to excess calories. 2. Body mass index reduced from 69.8 to 60.3 3. Weight gain following bariatric procedure. 4. Epigastric abdominal pain. 5. 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 6. Gastroesophageal reflux disease. 7. Hypertensive heart disease. 8. History of obstructive sleep apnea. 9. Chronic pain syndrome. 10. Diaphragmatic hiatal hernia. 11. Iron deficiency anemia. 12. Vitamin D deficiency. 13. Zinc deficiency. 14. Dietary surveillance and counseling. 15. Gastric stenosis. 16. Tobacco use with tobacco cessation and counseling. 17. History of depression. 18. History of recent syncopal episode. 19. Chronic urinary tract infection. The patient is a 31-year-old female who underwent the bariatric program. She has a past history of a sleeve gastrectomy and complications including chronic epigastric abdominal pain including intractable nausea and vomiting. She underwent multiple diagnostic studies are consistent with hiatal hernia. She underwent attempted gastric bypass with intraoperative findings were consistent with severe intra-abdominal adhesions prohibiting gastric bypass. A hiatal hernia repair was performed. As she completed her robotic surgery, she was somnolent and had been difficult to arouse post procedure. She was evaluated by the A-tem to exclude stroke. Diagnostic studies were negative for stroke. Postoperatively, her transient right upper thigh numbness resolved. She was tolerating liquids. The patient was discharged home without sequelae. Pertinent Studies: CTA negative for stroke. CT head negative for stroke. Esophagram demonstrating no leaks or extravasation. Procedures: OPERATION: 1. Laparoscopic extensive lysis of adhesions over 1.5 hours involving epigastrium, mid abdomen and pelvis. 2. Attempted laparoscopic Savi-en-Y gastric bypass converted to laparoscopic reduction and repair of an incarcerated incarcerated midline diaphragmatic paraesophageal hiatal hernia 6 cm with mesh using [place] Biopatch A 8 x 8 cm 3. Intraoperative esophagogastroduodenoscopy Patient Condition at Discharge: Good Plan - Discharge Summary New Discharge Prescriptions: Continue HYDROcodone/APAP 10-325MG [[place] 10-325] 1 tab PO TID PRN PRN Reason: Pain Gabapentin 600 mg PO TID PRN PRN Reason: Pain Nystatin 1 applic TOPICAL DAILY PRN PRN Reason: Rash DULoxetine HCL [Cymbalta] 30 mg PO BID Discontinued Ergocalciferol [Vitamin D2 (DRISDOL)] 50,000 unit PO TH Omeprazole 40 mg PO DAILY #90 capsule.dr Ferrous Sulfate [Feosol] 325 mg PO BID Multivitamins, Thera [Multivitamin (formulary)] 1 tab PO DAILY No Action hydrOXYzine HCL [Atarax] 25 mg PO TID PRN #30 tab PRN Reason: Itching Nystatin 100,000 Unit/gm Powd [Mycostatin Powder] 1 applic TOPICAL BID #60 powder Discharge Medication List Gabapentin 600 mg PO TID PRN 09/23/16 [History] HYDROcodone/APAP 10-325MG [[place] 10-325] 1 tab PO TID PRN 09/23/16 [History] Nystatin 1 applic TOPICAL DAILY PRN 02/04/17 [History] DULoxetine HCL [Cymbalta] 30 mg PO BID 05/03/17 [History] Nystatin 100,000 Unit/gm Powd [Mycostatin Powder] 1 applic TOPICAL BID #60 powder 05/17/17 [Rx] hydrOXYzine HCL [Atarax] 25 mg PO TID PRN #30 tab 05/17/17 [Rx] Follow up Appointment(s)/Referral(s): Natalia Ambrocio MD [STAFF PHYSICIAN] - 05/20/17 ([facility]) Patient Instructions/Handouts: Lysis of Abdominal Adhesions (DC), Upper Endoscopy (DC), Laparoscopic Hiatal Hernia Repair (DC) Activity/Diet/Wound Care/Special Instructions: No lifting or 4 pounds in 4 weeks. Start bariatric full liquid diet this Wednesday. May shower. No bath tub soaks. Discharge Disposition: HOME SELF-CARE
== END 2017-05-13 12:40 | disposition home or self-care (01) | DRG 327 ==
LOC: 2ORWHC 11:36 → 3SUR 18:14
PROVIDERS: ADMIT Surgery Plastic and Reconstructive Surgery; ATTEND Surgery Plastic and Reconstructive Surgery
PROC: 0BUS4JZ (ICD-10-PCS; 2017-05-11)
PROC: 0BUR4JZ (ICD-10-PCS; 2017-05-11)
PROC: 0DNW4ZZ Release Peritoneum, Percutaneous Endoscopic Approach (ICD-10-PCS; 2017-05-11)
PROC: 0DNS4ZZ (ICD-10-PCS; 2017-05-11)
PROC: 0DNB4ZZ Release Ileum, Percutaneous Endoscopic Approach (ICD-10-PCS; 2017-05-11)
PROC: 0DNA4ZZ Release Jejunum, Percutaneous Endoscopic Approach (ICD-10-PCS; 2017-05-11)
PROC: 0DJ08ZZ Inspection of Upper Intestinal Tract, Via Natural or Artificial Opening Endoscopic (ICD-10-PCS; 2017-05-11)
PROC: 8E0W4CZ Robotic Assisted Procedure of Trunk Region, Percutaneous Endoscopic Approach (ICD-10-PCS; 2017-05-11)
PROC: 0DN64ZZ Release Stomach, Percutaneous Endoscopic Approach (ICD-10-PCS; principal; 2017-05-11 12:50)
DX: K95.89 Other complications of other bariatric procedure (principal); K44.0 Diaphragmatic hernia with obstruction, without gangrene; Z68.44 Body mass index [BMI] 60.0-69.9, adult; E66.01 Morbid (severe) obesity due to excess calories; I11.9 Hypertensive heart disease without heart failure; K66.0 Peritoneal adhesions (postprocedural) (postinfection); D50.9 Iron deficiency anemia, unspecified; K21.9 Gastro-esophageal reflux disease without esophagitis; G89.4 Chronic pain syndrome; G47.33 Obstructive sleep apnea (adult) (pediatric); E55.9 Vitamin D deficiency, unspecified; R20.2 Paresthesia of skin; R20.0 Anesthesia of skin; J45.909 Unspecified asthma, uncomplicated; K29.70 Gastritis, unspecified, without bleeding; K31.89 Other diseases of stomach and duodenum; M79.3 Panniculitis, unspecified; R11.2 Nausea with vomiting, unspecified; F41.9 Anxiety disorder, unspecified; M25.519 Pain in unspecified shoulder; E60 Dietary zinc deficiency; M16.0 Bilateral primary osteoarthritis of hip; M17.0 Bilateral primary osteoarthritis of knee; R29.739 NIHSS score 39; F32.9 Major depressive disorder, single episode, unspecified; Z83.3 Family history of diabetes mellitus; Z71.3 Dietary counseling and surveillance; Z87.440 Personal history of urinary (tract) infections; Z90.49 Acquired absence of other specified parts of digestive tract; Z53.09 Procedure and treatment not carried out because of other contraindication; Z86.79 Personal history of other diseases of the circulatory system; Z87.891 Personal history of nicotine dependence; Z98.84 Bariatric surgery status; Z79.899 Other long term (current) drug therapy; Z82.49 Family history of ischemic heart disease and other diseases of the circulatory system; Z71.6 Tobacco abuse counseling; Z86.2 Personal history of diseases of the blood and blood-forming organs and certain disorders involving the immune mechanism; Z79.891 Long term (current) use of opiate analgesic; Z88.6 Allergy status to analgesic agent; Z88.8 Allergy status to other drugs, medicaments and biological substances
CPT/HCPCS: 70450; 70496; 70498; 74210; 80048; 80051; 81025; 82310; 82565; 83735; 84100; 84520; 85025; 86850; 86900; 86901; 87086; 93005; 94640; 94760; 94762

== ENCOUNTER → 2017-05-20 | Outpatient (CLI) | payer MEDICARE, OTHER ==
[2017-05-20 10:31] VITALS: TEMP 97.8; BMI 58.5
[2017-05-20 10:40] VITALS: BP 110/74; PULSE 58; RESP 20
--- NOTE | 2017-06-06 15:01 | P.PN ---
Progress Note - Text DATE OF SERVICE: 05/20/2017 CHIEF COMPLAINT: Status post hiatal hernia repair. HISTORY OF PRESENT ILLNESS: Lety De La Rosa is a 31-year-old female who had a sleeve gastrectomy performed at [facility] in 2013. She is 3 years out. She is status post hiatal hernia repair, 05/11/2014. She has lost 7 pounds. She had poor oral intake and required IV infusions. Separately, she reports epigastric abdominal pain. Her father reports that she's been fairly active including mowing the lawn. She had developed a rash of unclear etiology. Since being given Decadron including Atarax, her rash is resolved. No reports of dysphagia. No reports of gastroesophageal reflux disease. She is drinking 3 shakes a day. At her height of 5 feet 10-1/4 inches, she still is moderately overweight by 239 pounds. Her initial weight was 499 pounds. Today she comes in weighing 413 pounds. Her ideal body weight is 173 pounds. She has maintained an 86 pound weight loss after 3 years. Percent excess weight loss is 26%. Body mass index is reduced from 71.2 down to 58.9. PHYSICAL EXAM: VITAL SIGNS: 5 feet 10-1/4 inches, 418 pounds. Body mass index is 58.5. Vital Signs Temp 97.8 F 05/20/17 10:38 Pulse 58 L 05/20/17 10:38 Resp 20 05/20/17 10:38 BP 110/74 05/20/17 10:38 Pulse Ox ABDOMEN: Protuberant, soft, nondistended. Nontender. GENERAL: Well-developed, pleasant female in no acute distress. HEENT: No scleral icterus. Extraocular movements grossly intact. No nasal drainage. NECK: Supple without lymphadenopathy. CHEST: Nonlabored respirations, equal bilateral excursions. CARDIOVASCULAR: Regular rate and rhythm. NEURO: No focal or lateralizing signs. Cranial nerves II through XII grossly within normal limits. PSYCH: Appropriate affect. Alert and oriented to person, place, and time. ASSESSMENT: 1. Morbid obesity due to excess calories. 2. Body mass index reduced from 71.2 to 58.9. 3. Epigastric abdominal pain. 4. 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 5. Gastroesophageal reflux disease. 6. Status post hiatal hernia repair. PLAN: 1. Reflux disease is completely resolved. 2. Recommend follow up gastric bypass diet including protein shakes, 3 times daily. 3. Follow-up in [place] in 3 weeks. ADDENDUM: The patient's family report that she was not compliant with her activities of no lifting over 4 pounds in 4 weeks. She has been lifting beyond 200-300+ pounds which is causing her epigastric abdominal pain. She is instructed strict no lifting. I did review with her that if she does not comply with the care guidelines then her gastric bypass procedure will be canceled.
== END | disposition home or self-care (01) ==
LOC: BARWHC3 09:45
PROVIDERS: ATTEND Surgery Plastic and Reconstructive Surgery
DX: Z09 Encounter for follow-up examination after completed treatment for conditions other than malignant neoplasm (principal); Z98.890 Other specified postprocedural states; E66.01 Morbid (severe) obesity due to excess calories; K21.9 Gastro-esophageal reflux disease without esophagitis; Z68.43 Body mass index [BMI] 50.0-59.9, adult
CPT/HCPCS: 97803; G0463; 99211

== ENCOUNTER → 2017-08-05 | Outpatient (CLI) | payer MEDICARE, OTHER ==
[2017-08-05 11:04] LABS: Basophils % (A) 1 %; CH 23.3; CHCM 30.8; Eosinophils # (A) 0.3 k/uL (0-0.7); Eosinophils % (A) 3 %; HDW 2.97; HGB 11.1 gm/dL (11.4-16.0); Hypochromasia Moderate; Luc # (Auto) 0.18; Luc % (Auto) 2; Lymphocytes # (A) 2.3 k/uL (1.0-4.8); Lymphocytes % (A) 28 %; MCH 22.9 pg (25.0-35.0); MCHC 30.1 g/dL (31.0-37.0); Mean Platelet Volume 6.2; Microcytosis Slight; Monocytes # (A) 0.4 k/uL (0-1.0); Monocytes % (A) 4 %; Neutrophils # (A) 5.1 k/uL (1.3-7.7); Neutrophils % (A) 62 %; RBC 4.87 m/uL (3.80-5.40); RDW 15.3 % (11.5-15.5); WBC 8.3 k/uL (3.8-10.6); WBC (Perox) 8.44
[2017-08-05 11:31] LABS: ALT 26 U/L (9-52); AST 19 U/L (14-36); Alkaline Phosphatase 85 U/L (38-126); Anion Gap 11 mmol/L; Blood Urea Nitrogen 15 mg/dL (7-17); Calcium 9.3 mg/dL (8.4-10.2); Carbon Dioxide 26 mmol/L (22-30); Chloride 104 mmol/L (98-107); Glucose 100 mg/dL (74-99); Non-African American GFR(MDRD) >60 (>60 ml/min/1.73 sqM); Sodium 141 mmol/L (137-145); Total Bilirubin 0.6 mg/dL (0.2-1.3); Total Protein 7.4 g/dL (6.3-8.2)
== END | disposition home or self-care (01) ==
LOC: LABPAT 10:16
PROVIDERS: ATTEND Surgery Plastic and Reconstructive Surgery
DX: Z01.812 Encounter for preprocedural laboratory examination (principal)
CPT/HCPCS: 36415; 80053; 85025; 86850; 86900; 86901

== ENCOUNTER → 2017-08-13 | Outpatient (CLI) | payer MEDICARE, OTHER ==
[2017-08-13 11:21] VITALS: BP 143/85; PULSE 105; TEMP 97.7; BMI 57.4
--- NOTE | 2017-10-04 05:54 | P.PN ---
Subjective Progress Note Date: 08/13/17 DATE OF SERVICE: 08/13/2017 CHIEF COMPLAINT: Status post gastric bypass. HISTORY OF PRESENT ILLNESS: Lety De La Rosa is a 31-year-old female who had a sleeve gastrectomy performed at [facility] in 2013. She is 3 years out. She is status post hiatal hernia repair, 05/11/2014. She is now status post revision from sleeve to her gastric bypass, 08/09/2017. No reports of epigastric abdominal pain. She has diffuse itching. Separately she is tolerating liquids. Oral intake is less than 40 ounces daily. She presents with dry mouth. No reports of dysphagia. No reports of gastroesophageal reflux disease. At her height of 5 feet 10-1/4 inches, her initial weight was 499 pounds. Today she comes in weighing 405 pounds. She has lost 7 pounds in 2 months. Her ideal body weight is 173 pounds. She has maintained an 94 pound weight loss after 3 years. Percent excess weight loss is 29%. Body mass index is reduced from 71.2 down to 57.9. PHYSICAL EXAM: VITAL SIGNS: 5 feet 10-1/4 inches, 405 pounds. Body mass index is 57.9. Vital Signs Temp 97.7 F 08/13/17 11:12 Pulse 105 H 08/13/17 11:12 Resp BP 143/85 08/13/17 11:12 Pulse Ox ABDOMEN: Protuberant, soft, nondistended. CATHIE serosanguineous. No signs of infection. GENERAL: Well-developed, pleasant female in no acute distress. HEENT: No scleral icterus. Extraocular movements grossly intact. No nasal drainage. NECK: Supple without lymphadenopathy. CHEST: Nonlabored respirations, equal bilateral excursions. CARDIOVASCULAR: Palpable 2+ pulses. NEURO: No focal or lateralizing signs. Cranial nerves II through XII grossly within normal limits. PSYCH: Appropriate affect. Alert and oriented to person, place, and time. SKIN: Diffuse maculopapular rash along skin folds. ASSESSMENT: 1. Morbid obesity due to excess calories. 2. Body mass index reduced from 71.2 to 57.4. 3. 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 4. Status post gastric bypass revision. 5. Panniculitis. 6. ALLERGIC contact dermatitis. 7. Dehydration. PLAN: 1. Continue with CATHIE drain which is serosanguineous. Dressings along CATHIE changed. 2. IV fluid hydration recommended. 3. Close follow-up in the interim. Objective - Vital Signs Vital signs: Vital Signs Temp 97.7 F 08/13/17 11:12 Pulse 105 H 08/13/17 11:12 Resp BP 143/85 08/13/17 11:12 Pulse Ox Intake & Output 08/12/17 08/13/17 08/13/17 18:59 06:59 18:59 Weight 184.204 kg
== END | disposition home or self-care (01) ==
LOC: BARWHC3 10:34
PROVIDERS: ATTEND Surgery Plastic and Reconstructive Surgery
DX: Z48.815 Encounter for surgical aftercare following surgery on the digestive system (principal); K95.89 Other complications of other bariatric procedure; E86.0 Dehydration; E66.01 Morbid (severe) obesity due to excess calories; Z68.43 Body mass index [BMI] 50.0-59.9, adult; M79.3 Panniculitis, unspecified; L23.9 Allergic contact dermatitis, unspecified cause; Z98.84 Bariatric surgery status
CPT/HCPCS: 96360; 96361; 99211

== ENCOUNTER → 2017-08-18 | Outpatient (CLI) | payer MEDICARE, OTHER ==
[2017-08-18 15:21] VITALS: BP 119/67; PULSE 96; TEMP 97.1; BMI 56.5
--- NOTE | 2017-10-04 06:36 | P.PN ---
Subjective Progress Note Date: 08/18/17 DATE OF SERVICE: 08/18/2017 CHIEF COMPLAINT: Status post gastric bypass. HISTORY OF PRESENT ILLNESS: Lety De La Rosa is a 31-year-old female who had a sleeve gastrectomy performed at [facility] in 2013. She is 3 years out. She is status post hiatal hernia repair, 05/11/2014. She is now status post revision from sleeve to her gastric bypass, 08/09/2017. No reports of nausea or vomiting. No reports of fevers or chills. No reports of drainage from abdominal wound. This is the first time she's been under 400 pounds and over 5 years. Her rash along the skin is resolved. At her height of 5 feet 10-1/4 inches, her initial weight was 499 pounds. Today she comes in weighing 399 pounds. She has lost 7 pounds in 1 week. Her ideal body weight is 173 pounds. She has maintained 100 pound weight loss after 3 years. Percent excess weight loss is 31 %. Body mass index is reduced from 71.2 down to 56.5. PHYSICAL EXAM: VITAL SIGNS: 5 feet 10-1/4 inches, 399 pounds. Body mass index is 57.9. Vital Signs Temp 97.1 F L 08/18/17 15:18 Pulse 96 08/18/17 15:18 Resp BP 119/67 08/18/17 15:18 Pulse Ox ABDOMEN: Protuberant, soft, nondistended. CATHIE discontinued at bedside after cleansing skin. GENERAL: Well-developed, pleasant female in no acute distress. HEENT: No scleral icterus. Extraocular movements grossly intact. No nasal drainage. NECK: Supple without lymphadenopathy. CHEST: Nonlabored respirations, equal bilateral excursions. CARDIOVASCULAR: Palpable 2+ pulses. Regular rate. Regular rhythm. NEURO: No focal or lateralizing signs. Cranial nerves II through XII grossly within normal limits. PSYCH: Appropriate affect. Alert and oriented to person, place, and time. SKIN: Diffuse maculopapular rash resolved. ASSESSMENT: 1. Morbid obesity due to excess calories. 2. Body mass index reduced from 71.2 to 56.5. 3. 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 4. Status post gastric bypass revision. PLAN: 1. CATHIE discontinued. 2. Protein shakes over 75 g reinforced. 3. Follow-up in 1 week.
== END | disposition home or self-care (01) ==
LOC: BARWHC3 13:36
PROVIDERS: ATTEND Surgery Plastic and Reconstructive Surgery
DX: Z48.815 Encounter for surgical aftercare following surgery on the digestive system (principal); E66.01 Morbid (severe) obesity due to excess calories; K95.89 Other complications of other bariatric procedure; Z68.43 Body mass index [BMI] 50.0-59.9, adult
CPT/HCPCS: 97803; G0463; 99211

== ENCOUNTER → 2017-09-15 | Outpatient (CLI) | payer MEDICARE, OTHER ==
[2017-09-15 16:30] VITALS: BMI 57.1
[2017-09-15 16:39] VITALS: BP 185/85; PULSE 80; TEMP 97.9
--- NOTE | 2017-11-06 16:28 | P.PN ---
Subjective Progress Note Date: 09/15/17 DATE OF SERVICE: 09/15/2017. CHIEF COMPLAINT: Status post gastric bypass. HISTORY OF PRESENT ILLNESS: Lety De La Rosa is a 32-year-old female who had a sleeve gastrectomy performed at [facility] in 2013. She is status post hiatal hernia repair, 05/11/2014. She is now status post revision from sleeve to her gastric bypass, 08/09/2017. She reports having epigastric tightness. She has troubles with protein shakes. She reports gastroesophageal reflux disease. She reports constipation. She has low oral intake total for protein. At her height of 5 feet 10-1/4 inches, her initial weight was 499 pounds. Today she comes in weighing 400 pounds. She has gained 1 pound in 1 month. Her ideal body weight is 173 pounds. She has maintained 99 pound weight loss, lifetime. Percent excess weight loss is 30%. Body mass index is reduced from 70.7 down to 56.7. PHYSICAL EXAM: VITAL SIGNS: 5 feet 10-1/4 inches, 400 pounds. Body mass index is 56.7 Vital Signs Temp 97.9 F 09/15/17 16:36 Pulse 80 09/15/17 16:36 Resp BP 185/85 09/15/17 16:36 Pulse Ox ABDOMEN: Protuberant, soft, nondistended. No signs of infection. GENERAL: Well-developed, pleasant female in no acute distress. HEENT: No scleral icterus. Extraocular movements grossly intact. No nasal drainage. NECK: Supple without lymphadenopathy. CHEST: Nonlabored respirations, equal bilateral excursions. CARDIOVASCULAR: Palpable 2+ pulses. Regular rate. Regular rhythm. NEURO: No focal or lateralizing signs. Cranial nerves II through XII grossly within normal limits. PSYCH: Appropriate affect. Alert and oriented to person, place, and time. SKIN: Good skin turgor. Well perfused. ASSESSMENT: 1. Morbid obesity due to excess calories. 2. Body mass index reduced from 70.7 to 56.7. 3. 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 4. Constipation. PLAN: 1. MiraLAX has been intermittent in her behalf. 2. Recommend upper endoscopy with balloon dilatation for possible gastrojejunal stricture. 3. Recommend bariatric panel. Objective - Vital Signs Vital signs: Vital Signs Temp 97.9 F 09/15/17 16:36 Pulse 80 09/15/17 16:36 Resp BP 185/85 09/15/17 16:36 Pulse Ox Intake & Output 09/14/17 09/15/17 09/15/17 18:59 06:59 18:59 Weight 181.891 kg
== END | disposition home or self-care (01) ==
LOC: BARWHC3 15:01
PROVIDERS: ATTEND Surgery Plastic and Reconstructive Surgery
DX: Z48.815 Encounter for surgical aftercare following surgery on the digestive system (principal); E66.01 Morbid (severe) obesity due to excess calories; K59.00 Constipation, unspecified; Z68.43 Body mass index [BMI] 50.0-59.9, adult; Z98.84 Bariatric surgery status
CPT/HCPCS: 97803; G0463; 99211

== ENCOUNTER → 2017-09-24 | Day surgery (SDC) | payer MEDICARE, OTHER ==
[2017-09-22 15:22] VITALS: BMI 58.2
[~2017-09-24] MED LIST changes: -ACETAMINOPHEN IV (For NPO) 1,000 MG in EMPTY BAG 1 BAG IVPB ONE; -CHLORHEXIDINE GLUCONATE 15 ML CUP MUCOUS MEM ONE; -ENOXAPARIN 40 MG/0.4 ML SYRINGE SQ STA; -HYDROmorphone 1 MG/ML 1 ML SYRINGE IVP PRN; +LACTATED RINGERS 1,000 ML IV SCH; +LIDOCAINE 1% 20 ML VIAL (10MG/ML) FOR IV START INTRADERMA ONE; -LIDOCAINE 1% 20 ML VIAL (10MG/ML) FOR IV START INTRADERMA PRN; +LIDOCAINE 1% INJ 10MG/ML (20 ML MDV) ONE; +MIDAZOLAM 2 MG/2 ML VIAL ONE; -PANTOPRAZOLE 40 MG/10 ML VIAL IV STA; +PROMETHAZINE INJ 6.25 MG in SODIUM CHLORIDE 0.9% 50 ML IVPB PRN; +PROPOFOL 10 MG/ML 20 ML VIAL IV ONE; -Pre Op ABX Message 1 EACH MISC MISCELLANE ONE; -SCOPOLAMINE 1.5MG/72HR PATCH TRANSDERM ONE; +fentaNYL (PF) 50 MCG/ML 2 ML AMP ONE
[2017-09-24 12:03] VITALS: RESP 18; TEMP 96.8
--- NOTE | 2017-09-24 13:53 | P.GSHP ---
History of Present Illness H&P Date: 09/24/17 CHIEF COMPLAINT: GERD HISTORY OF PRESENT ILLNESS: The patient is a 32-year-old female who presents reports gastroesophageal reflux disease. Upper endoscopy was offered for further evaluation and management. PAST MEDICAL HISTORY: Please see list. PAST SURGICAL HISTORY: Please see list. MEDICATIONS: Please see list. ALLERGIES: Please see list. SOCIAL HISTORY: No illicit drug use FAMILY HISTORY: No reports of Crohn disease or ulcerative colitis. REVIEW OF ORGAN SYSTEMS: CONSTITUTIONAL: No reports of fevers or chills. GI: Denies any blood in stools or constipation. PHYSICAL EXAM: VITAL SIGNS: Stable GENERAL: Well-developed and pleasant in no acute distress. HEENT: No scleral icterus. Extraocular movements grossly intact. Moist buccal mucosa. NECK: Supple without lymphadenopathy. CHEST: Unlabored respirations. Equal bilateral excursions. CARDIOVASCULAR: Regular rate and rhythm. Distal 2+ pulses. ABDOMEN: Soft, nondistended. MUSCULOSKELETAL: No clubbing, cyanosis, or edema. ASSESSMENT: 1. Gastroesophageal reflux disease PLAN: 1. Recommend proceeding with an upper endoscopy Past Medical History Past Medical History: Asthma, GERD/Reflux, Hypertension, Osteoarthritis (OA) Additional Past Medical History / Comment(s): "having difficulty swallowing and vomiting",Abdominal pain, back pain, hiatal hernia, anemia. 05/12/17: Dr. Ambrocio reports that the patient has a history of having periods of unresponsiveness as well as a history of a positive vaso-vagal response. History of Any Multi-Drug Resistant Organisms: None Reported Past Surgical History: Bariatric Surgery, Section, Cholecystectomy Additional Past Surgical History / Comment(s): 10/05/16 EGD with bx, sleeve gastrectomy 07/25/13, lysis of adhesions abd, hiatel hernia, EGD 05/11/17.gastric bypass 08-09-17 Past Anesthesia/Blood Transfusion Reactions: No Reported Reaction Additional Past Anesthesia/Blood Transfusion Reaction / Comment(s): Difficult IV start. Past Psychological History: Anxiety, Depression Additional Psychological History / Comment(s): Pt states she lives with her dad. Smoking Status: Former smoker Past Alcohol Use History: None Reported Additional Past Alcohol Use History / Comment(s): Pt states she started smoking as a teen and only smokes on days where her stress level is high. Past Drug Use History: None Reported Additional Drug Use History / Comment(s): . - Past Family History Mother Family Medical History: No Reported History Father Family Medical History: Coronary Artery Disease (CAD) Additional Family Medical History / Comment(s): Father is 64yrs old. He has had a CABG. Medications and Allergies Home Medications Medication Instructions Recorded Confirmed Type Gabapentin 600 mg PO TID PRN 09/23/16 09/24/17 History Nystatin 1 applic TOPICAL DAILY PRN 02/04/17 09/24/17 History buPROPion HCL [Wellbutrin SR] 150 mg PO HS 08/05/17 09/24/17 History HYDROcodone/APAP [Tovey Elixir 30 ml PO Q6HR PRN #480 solution 08/11/17 Rx 7.5-325Mg/15Ml] Omeprazole 40 mg PO DAILY #30 capsule. 08/11/17 09/24/17 Rx Polyethylene Glycol 3350 [Miralax] 17 gm PO DAILY #255 gm 09/15/17 09/24/17 Rx Adult Chewable Vitamins 2 tab PO DAILY 09/22/17 09/24/17 History Allergies Allergy/AdvReac Type Severity Reaction Status Date / Time ibuprofen [From Motrin] Allergy Anaphylaxis Verified 09/24/17 11:42 iron Allergy Anaphylaxis Verified 09/24/17 11:42 to IV iron Surgical - Exam Vital Signs Temp Pulse Resp BP Pulse Ox 96.8 F L 60 18 135/74 99 09/24/17 12:02 09/24/17 12:02 09/24/17 12:02 09/24/17 12:02 09/24/17 12:02
--- NOTE | 2017-09-24 14:05 | P.PCN ---
Date of Procedure: 09/24/17 Description of Procedure: PREOPERATIVE DIAGNOSIS: Dysphagia. Nausea with vomiting. Morbid obesity. Epigastric abdominal pain. POSTOPERATIVE DIAGNOSIS: Dysphagia. Nausea with vomiting. Morbid obesity. Epigastric abdominal pain. Foreign body. Gastrojejunal stricture OPERATION: Esophagogastrojejunoscopy with balloon dilatation from 12 to 20 mm. Esophagogastrojejunoscopy with removal of foreign body. SURGEON: Natalia Ambrocio MD ANESTHESIA: MAC. INDICATIONS: The patient is a 32-year-old female who presents with a history of dysphagia, including new-onset nausea and vomiting. Benefits and risks of the procedure were described. Informed consent was obtained. DESCRIPTION: The patient was brought into the endoscopy suite and laid in the left lateral decubitus position. After a timeout was confirmed, the procedure was initiated. An Olympus gastroscope was passed along the posterior oropharynx down to the distal esophagus where the squamocolumnar junction was unremarkable. The gastric pouch was entered. A gastrojejunal stricture of 12 mm was found as the adult gastroscope was 9.2 mm in size. A 10sec balloon dilator was placed through the scope. Final insufflation up to 20 mm was performed with a total of 2 minutes. The scope was advanced up to 60 cm from the incisors into the Savi limb. The mucosa of the gastrojejunal anastomosis was intact. A suture at her gastrojejunal anastomosis was identified and removed using cold forceps biopsy. 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 No full-thickness injury was encountered. The GI tract was desufflated. The patient tolerated the procedure well. FINDINGS: Squamocolumnar junction unremarkable at 40 cm. Stricture of approximately 12 mm encountered. Chronic gastrojejunal ulceration encountered. Successful balloon dilatation to 20 mm. Mild tortuosity of the gastrojejunal anastomosis. RECOMMENDATIONS: Continue omeprazole.
[2017-09-24 14:34] VITALS: BP 136/64; PULSE 78
== END | disposition home or self-care (01) ==
LOC: ORWHC2ENDO 10:56
PROVIDERS: ATTEND Surgery Plastic and Reconstructive Surgery
DX: K31.89 Other diseases of stomach and duodenum (principal); K25.7 Chronic gastric ulcer without hemorrhage or perforation; T18.2XXA Foreign body in stomach, initial encounter; K21.9 Gastro-esophageal reflux disease without esophagitis; E66.01 Morbid (severe) obesity due to excess calories; Z68.43 Body mass index [BMI] 50.0-59.9, adult; Z98.84 Bariatric surgery status; J45.909 Unspecified asthma, uncomplicated; I10 Essential (primary) hypertension; M19.90 Unspecified osteoarthritis, unspecified site; F41.9 Anxiety disorder, unspecified; F32.9 Major depressive disorder, single episode, unspecified; Z79.899 Other long term (current) drug therapy; Z87.891 Personal history of nicotine dependence; Z88.6 Allergy status to analgesic agent; Z88.8 Allergy status to other drugs, medicaments and biological substances
CPT/HCPCS: 81025; 43245; 43247; J2250; J2001; J3010; J2704; C1726; 43249

== ENCOUNTER → 2017-10-06 | Outpatient (CLI) | payer MEDICARE ==
[2017-10-06 16:24] LABS: HCT 37.8 % (34.0-46.0); HGB 11.6 gm/dL (11.4-16.0); Hypochromasia Marked; MCH 23.5 pg (25.0-35.0); MCHC 30.8 g/dL (31.0-37.0); MCV 76.5 fL (80.0-100.0); Mean Platelet Volume 6.4; Microcytosis Slight; Platelet Count 270 k/uL (150-450); RBC 4.94 m/uL (3.80-5.40); RDW 15.5 % (11.5-15.5); WBC 7.5 k/uL (3.8-10.6)
[2017-10-06 16:28] LABS: Partial Thromboplastin Time 24.6 sec (22.0-30.0); Prothrombin Time 9.9 sec (9.0-12.0)
[2017-10-06 16:43] LABS: ALT 25 U/L (9-52); AST 19 U/L (14-36); Albumin 4.4 g/dL (3.5-5.0); Alkaline Phosphatase 91 U/L (38-126); Anion Gap 13 mmol/L; Blood Urea Nitrogen 13 mg/dL (7-17); Calcium 9.4 mg/dL (8.4-10.2); Carbon Dioxide 29 mmol/L (22-30); Chloride 102 mmol/L (98-107); Cholesterol 143 mg/dL (<200); Glucose 90 mg/dL (74-99); HDL Cholesterol 26 mg/dL (40-60); LDL Cholesterol,Calculated 87 mg/dL (0-99); Magnesium 2.2 mg/dL (1.6-2.3); Phosphorus 4.1 mg/dL (2.5-4.5); Potassium 4.1 mmol/L (3.5-5.1); Sodium 144 mmol/L (137-145); Total Bilirubin 0.4 mg/dL (0.2-1.3); Total Protein 8.1 g/dL (6.3-8.2); Triglycerides 150 mg/dL (<150)
[2017-10-07 01:25] LABS: Vitamin D 25 Hydroxy 22.6 ng/mL (30.0-100.0)
[2017-10-07 01:26] LABS: Folate, Serum 9.3 ng/mL
[2017-10-07 01:30] LABS: Iron Saturation 7.84 (12.00-45.00)
[2017-10-07 01:40] LABS: Parathyroid Hormone Intact 40.6 pg/mL (14.0-72.0)
[2017-10-07 05:19] LABS: Hemoglobin A1C 5.3 % (4.0-6.0)
[2017-10-07 14:06] LABS: Vitamin A 25 ug/dL (38-106)
[2017-10-08 10:38] LABS: Zinc, Serum 68 ug/dL (60-130)
[2017-10-08 12:12] LABS: Vitamin B1 38 ug/L (38-122)
[2017-10-08 16:47] LABS: Selenium 125 mcg/L (63-160)
== END | disposition home or self-care (01) ==
LOC: LABWHC1 15:20
PROVIDERS: ATTEND Surgery Plastic and Reconstructive Surgery
DX: E66.01 Morbid (severe) obesity due to excess calories (principal); E21.1 Secondary hyperparathyroidism, not elsewhere classified; D50.9 Iron deficiency anemia, unspecified; K90.9 Intestinal malabsorption, unspecified; E55.9 Vitamin D deficiency, unspecified; K74.1 Hepatic sclerosis; N19 Unspecified kidney failure; K50.90 Crohn's disease, unspecified, without complications
CPT/HCPCS: 36415; 80053; 80061; 82306; 82525; 82607; 82728; 82746; 83036; 83540; 83550; 83735; 83970; 84100; 84134; 84255; 84425; 84443; 84590; 84630; 85027; 85610; 85730

== ENCOUNTER 2017-12-13 06:41 | Day surgery (SDC) | payer MEDICARE, OTHER ==
[2017-12-10 08:13] VITALS: BMI 54.6
[~2017-12-13 06:41] MED LIST changes: -DEXAMETHASONE SOD PHOSPHATE 10 MG/ML 1 ML VIAL IV ONE; -LIDOCAINE 1% 20 ML VIAL (10MG/ML) FOR IV START INTRADERMA ONE; -LIDOCAINE 1% INJ 10MG/ML (20 ML MDV) ONE; -MIDAZOLAM 2 MG/2 ML VIAL ONE; -ONDANSETRON 4 MG/2 ML VIAL IVP ONE; -PROMETHAZINE INJ 6.25 MG in SODIUM CHLORIDE 0.9% 50 ML IVPB PRN; -PROPOFOL 10 MG/ML 20 ML VIAL IV ONE; -fentaNYL (PF) 50 MCG/ML 2 ML AMP ONE
[2017-12-13 07:04] VITALS: RESP 18; TEMP 97.9
[2017-12-13] MEDS ORDERED: LIDOCAINE 1% INJ 10MG/ML (20 ML MDV) ONE (07:32)
[2017-12-13] MEDS ORDERED: PROPOFOL 10 MG/ML 20 ML VIAL IV ONE (07:32)
[2017-12-13] MEDS ORDERED: MIDAZOLAM 2 MG/2 ML VIAL ONE (07:32)
[2017-12-13] MEDS ORDERED: KETAMINE 10 MG/ML 20 ML VIAL ONE (07:32)
[2017-12-13] MEDS ORDERED: fentaNYL (PF) 50 MCG/ML 2 ML AMP ONE (07:32)
--- NOTE | 2017-12-13 07:36 | P.GSHP ---
History of Present Illness H&P Date: 12/13/17 CHIEF COMPLAINT: GERD HISTORY OF PRESENT ILLNESS: The patient is a 32-year-old female who presents reports gastroesophageal reflux disease. Upper endoscopy was offered for further evaluation and management. PAST MEDICAL HISTORY: Please see list. PAST SURGICAL HISTORY: Please see list. MEDICATIONS: Please see list. ALLERGIES: Please see list. SOCIAL HISTORY: No illicit drug use FAMILY HISTORY: No reports of Crohn disease or ulcerative colitis. REVIEW OF ORGAN SYSTEMS: CONSTITUTIONAL: No reports of fevers or chills. GI: Denies any blood in stools or constipation. PHYSICAL EXAM: VITAL SIGNS: Stable GENERAL: Well-developed and pleasant in no acute distress. HEENT: No scleral icterus. Extraocular movements grossly intact. Moist buccal mucosa. NECK: Supple without lymphadenopathy. CHEST: Unlabored respirations. Equal bilateral excursions. CARDIOVASCULAR: Regular rate and rhythm. Distal 2+ pulses. ABDOMEN: Soft, nondistended. MUSCULOSKELETAL: No clubbing, cyanosis, or edema. ASSESSMENT: 1. Gastroesophageal reflux disease PLAN: 1. Recommend proceeding with an upper endoscopy Past Medical History Past Medical History: Asthma, GERD/Reflux, Hypertension, Osteoarthritis (OA) Additional Past Medical History / Comment(s): "having difficulty swallowing and vomiting",Abdominal pain, back pain, hiatal hernia, anemia. 05/12/17: Dr. Ambrocio reports that the patient has a history of having periods of unresponsiveness as well as a history of a positive vaso-vagal response. History of Any Multi-Drug Resistant Organisms: None Reported Past Surgical History: Bariatric Surgery, Section, Cholecystectomy Additional Past Surgical History / Comment(s): 10/05/16 EGD with bx, sleeve gastrectomy 07/25/13, lysis of adhesions abd, hiatel hernia, EGD 05/11/17.gastric bypass 08-09-17 Past Anesthesia/Blood Transfusion Reactions: No Reported Reaction Additional Past Anesthesia/Blood Transfusion Reaction / Comment(s): Difficult IV start. Past Psychological History: Anxiety, Depression Additional Psychological History / Comment(s): Pt states she lives with her dad. Smoking Status: Former smoker Past Alcohol Use History: None Reported Additional Past Alcohol Use History / Comment(s): Pt states she started smoking as a teen and only smokes on days where her stress level is high. Past Drug Use History: None Reported Additional Drug Use History / Comment(s): . - Past Family History Mother Family Medical History: No Reported History Father Family Medical History: Coronary Artery Disease (CAD) Additional Family Medical History / Comment(s): Father is 64yrs old. He has had a CABG. Medications and Allergies Home Medications Medication Instructions Recorded Confirmed Type Gabapentin 600 mg PO TID PRN 09/23/16 12/13/17 History Nystatin 1 applic TOPICAL DAILY PRN 02/04/17 12/13/17 History buPROPion HCL [Wellbutrin SR] 150 mg PO HS 08/05/17 12/10/17 History Omeprazole 40 mg PO DAILY #30 capsule. 08/11/17 12/10/17 Rx Polyethylene Glycol 3350 [Miralax] 17 gm PO DAILY #255 gm 09/15/17 12/10/17 Rx Adult Chewable Vitamins 2 tab PO DAILY 09/22/17 12/13/17 History Allergies Allergy/AdvReac Type Severity Reaction Status Date / Time ibuprofen [From Motrin] Allergy Anaphylaxis Verified 12/08/17 17:16 iron Allergy Anaphylaxis Verified 12/08/17 17:16 to IV iron Surgical - Exam Vital Signs Temp Pulse Resp BP Pulse Ox 97.9 F 84 18 117/90 97 12/13/17 07:02 12/13/17 07:02 12/13/17 07:02 12/13/17 07:02 12/13/17 07:02
--- NOTE | 2017-12-13 08:16 | P.PCN ---
Date of Procedure: 12/13/17 Description of Procedure: PREOPERATIVE DIAGNOSIS: Dysphagia. Gastrojejunal stricture Epigastric abdominal pain. POSTOPERATIVE DIAGNOSIS: Dysphagia. Gastrojejunal stricture Epigastric abdominal pain. OPERATION: Esophagogastrojejunoscopy with balloon dilatation from 15 to 20 mm. SURGEON: Natalia Ambrocio MD ANESTHESIA: MAC. INDICATIONS: The patient is a 32-year-old female who presents with a history of dysphagia. Benefits and risks of the procedure were described. Informed consent was obtained. DESCRIPTION: The patient was brought into the endoscopy suite and laid in the left lateral decubitus position. After a timeout was confirmed, the procedure was initiated. An Olympus gastroscope was passed along the posterior oropharynx down to the distal esophagus where the squamocolumnar junction was unremarkable. The gastric pouch was entered. A gastrojejunal stricture of 15 mm was found as the adult gastroscope was 9.6 mm in size. A [employer] balloon dilator was placed through the scope. Final insufflation up to 20 mm was performed with a total of 2 minutes. The scope was advanced up to 60 cm from the incisors into the Savi limb. The mucosa of the gastrojejunal anastomosis was intact. No chronic gastrojejunal marginal ulcer was encountered. No full-thickness injury was encountered. The GI tract was desufflated. The patient tolerated the procedure well. FINDINGS: Stricture of approximately 15 mm encountered. No chronic gastrojejunal ulceration encountered. Successful balloon dilatation to 20 mm. RECOMMENDATIONS: Upper endoscopy as needed. Plan - Discharge Summary Discharge Rx Participant: No New Discharge Prescriptions: No Action Gabapentin 600 mg PO TID PRN PRN Reason: Pain Nystatin 1 applic TOPICAL DAILY PRN PRN Reason: Rash buPROPion HCL [Wellbutrin SR] 150 mg PO HS Omeprazole 40 mg PO DAILY #30 capsule. Polyethylene Glycol 3350 [Miralax] 17 gm PO DAILY #255 gm Adult Chewable Vitamins 2 tab PO DAILY Discharge Medication List Gabapentin 600 mg PO TID PRN 09/23/16 [History] Nystatin 1 applic TOPICAL DAILY PRN 02/04/17 [History] buPROPion HCL [Wellbutrin SR] 150 mg PO HS 08/05/17 [History] Omeprazole 40 mg PO DAILY #30 capsule. 08/11/17 [Rx] Polyethylene Glycol 3350 [Miralax] 17 gm PO DAILY #255 gm 09/15/17 [Rx] Adult Chewable Vitamins 2 tab PO DAILY 09/22/17 [History] Follow up Appointment(s)/Referral(s): [facility] [NON-STAFF] - 12/16/17 Patient Instructions/Handouts: *[facility] - (Anesthesia) Endoscopy Discharge Instructions, Upper Endoscopy (GEN), Esophageal Dilation (DC) Activity/Diet/Wound Care/Special Instructions: Liquid diet today. Soft diet tomorrow. Discharge Disposition: HOME SELF-CARE
[2017-12-13 08:20] VITALS: BP 117/65; PULSE 60
== END 2017-12-13 08:24 | disposition home or self-care (01) ==
LOC: ORWHC2ENDO 06:41
PROVIDERS: ATTEND Surgery Plastic and Reconstructive Surgery
DX: K31.89 Other diseases of stomach and duodenum (principal); Z90.3 Acquired absence of stomach [part of]; Z98.84 Bariatric surgery status; K21.9 Gastro-esophageal reflux disease without esophagitis; J45.909 Unspecified asthma, uncomplicated; I10 Essential (primary) hypertension; M19.90 Unspecified osteoarthritis, unspecified site; F41.9 Anxiety disorder, unspecified; F32.9 Major depressive disorder, single episode, unspecified; D64.9 Anemia, unspecified; M54.9 Dorsalgia, unspecified; Z82.49 Family history of ischemic heart disease and other diseases of the circulatory system; Z79.899 Other long term (current) drug therapy; Z88.6 Allergy status to analgesic agent; Z91.09 Other allergy status, other than to drugs and biological substances; Z87.891 Personal history of nicotine dependence
CPT/HCPCS: 43245; 43249; 81025

== ENCOUNTER → 2018-03-17 | Outpatient (CLI) | payer MEDICARE ==
--- NOTE | 2018-03-18 08:30 | CT ---
EXAMINATION TYPE: CT abdomen pelvis w con DATE OF EXAM: 03/17/2018 COMPARISON: 10/16/2016 HISTORY: RUQ pain and abdominal tenderness CT DLP: 4322.8 mGycm CONTRAST: CT scan of the abdomen and pelvis is performed with Oral Contrast and with IV Contrast, patient injec jovanny with 100 mL of Isovue 300. FINDINGS: LUNG BASES-: No visible nodule. No infiltrate. LIVER/GB: Cholecystectomy clips are in place. No space occupying hepatic lesion. Biliary tree is o f normal caliber. PANCREAS: No inflammation. No distinct mass. SPLEEN: No splenic enlargement. No lesion seen. ADRENALS: No nodule. No thickening. KIDNEYS/BLADDER: No hydronephrosis. No nephrolithiasis. No distinct renal mass. Urinary bladder g rossly unremarkable. BOWEL: Normal appendix. Normal bowel caliber. No inflammation. GENITAL ORGANS: No gross abnormality. LYMPH NODES: No greater than 1cm abdominal or pelvic lymph nodes are appreciated. AORTA: No significant abnormality. OSSEOUS STRUCTURES: No significant abnormality is seen. OTHER: No significant additional abnormality is seen. IMPRESSION: 1. No significant abnormality to account for the patient's symptoms.
== END | disposition home or self-care (01) ==
LOC: RADCTMAIN 16:50
PROVIDERS: ATTEND Surgery Plastic and Reconstructive Surgery
DX: R10.11 Right upper quadrant pain (principal); Z88.6 Allergy status to analgesic agent; Z88.8 Allergy status to other drugs, medicaments and biological substances
CPT/HCPCS: 74177; Q9967

== ENCOUNTER → 2018-03-17 | Outpatient (CLI) | payer MEDICARE ==
[2018-03-17 16:48] LABS: HCT 39.8 % (34.0-46.0); HGB 13.2 gm/dL (11.4-16.0); MCH 27.6 pg (25.0-35.0); MCHC 33.2 g/dL (31.0-37.0); MCV 83.1 fL (80.0-100.0); Platelet Count 240 k/uL (150-450); RBC 4.79 m/uL (3.80-5.40); RDW 15.5 % (11.5-15.5); WBC 9.3 k/uL (3.8-10.6)
[2018-03-17 17:02] LABS: Partial Thromboplastin Time 25.2 sec (22.0-30.0); Prothrombin Time 9.9 sec (9.0-12.0)
[2018-03-17 17:09] LABS: ALT 27 U/L (9-52); AST 20 U/L (14-36); Albumin 4.1 g/dL (3.5-5.0); Alkaline Phosphatase 91 U/L (38-126); Anion Gap 9 mmol/L; Blood Urea Nitrogen 14 mg/dL (7-17); Calcium 9.1 mg/dL (8.4-10.2); Carbon Dioxide 27 mmol/L (22-30); Chloride 107 mmol/L (98-107); Cholesterol 150 mg/dL (<200); Glucose 91 mg/dL (74-99); HDL Cholesterol 40 mg/dL (40-60); LDL Cholesterol,Calculated 61 mg/dL (0-99); Magnesium 2.1 mg/dL (1.6-2.3); Phosphorus 3.8 mg/dL (2.5-4.5); Potassium 4.3 mmol/L (3.5-5.1); Sodium 143 mmol/L (137-145); Total Bilirubin 0.4 mg/dL (0.2-1.3); Total Protein 7.3 g/dL (6.3-8.2); Triglycerides 247 mg/dL (<150)
[2018-03-18 01:04] LABS: Iron Saturation 12.7 (12.00-45.00)
[2018-03-18 01:16] LABS: Folate, Serum 10.6 ng/mL; Vitamin D 25 Hydroxy 22.8 ng/mL (30.0-100.0)
[2018-03-18 02:13] LABS: Hemoglobin A1C 4.9 % (4.0-6.0)
[2018-03-18 12:13] LABS: Zinc, Serum 50 ug/dL (60-130)
== END | disposition home or self-care (01) ==
LOC: LABPAT 16:21
PROVIDERS: ATTEND Surgery Plastic and Reconstructive Surgery
DX: E21.1 Secondary hyperparathyroidism, not elsewhere classified (principal); D50.9 Iron deficiency anemia, unspecified; E44.0 Moderate protein-calorie malnutrition; E55.0 Rickets, active; E55.9 Vitamin D deficiency, unspecified; K74.0 Hepatic fibrosis; K74.1 Hepatic sclerosis; N19 Unspecified kidney failure; K50.90 Crohn's disease, unspecified, without complications
CPT/HCPCS: 80053; 80061; 82306; 82525; 82607; 82728; 82746; 83036; 83540; 83550; 83735; 83970; 84100; 84134; 84255; 84425; 84443; 84590; 84630; 85027; 85610; 85730

== ENCOUNTER → 2018-04-06 | Outpatient (CLI) | payer MEDICARE ==
[2018-04-06 16:59] VITALS: BP 113/51; PULSE 63; RESP 20; TEMP 98.1; BMI 53.6
--- NOTE | 2018-04-06 17:36 | P.PN ---
Subjective Progress Note Date: 04/06/18 HPI: She presents with 1 month history of abdominal pain. She reports diarrhea and abdominal distention. ABDOMEN: Tender along the epigastrium STUDIES: CT reviewed. PLAN: 1. History of severe adhesion, recommend robotic lysis of adhesions. 2. Lovenox pre-op 3. Iron pills recommended Objective - Vital Signs Vital signs: Vital Signs Temp 98.1 F 04/06/18 16:47 Pulse 63 04/06/18 16:47 Resp 20 04/06/18 16:47 BP 113/51 04/06/18 16:47 Pulse Ox Intake & Output 04/05/18 04/06/18 04/06/18 18:59 06:59 18:59 Weight 171.004 kg
== END | disposition home or self-care (01) ==
LOC: BARWHC3 15:31
PROVIDERS: ATTEND Surgery Plastic and Reconstructive Surgery
DX: R19.7 Diarrhea, unspecified (principal); R14.0 Abdominal distension (gaseous); R10.9 Unspecified abdominal pain; E66.01 Morbid (severe) obesity due to excess calories
CPT/HCPCS: 97803; G0463; 99211

== ENCOUNTER → 2018-04-19 | Outpatient (CLI) | payer MEDICARE ==
[2018-04-19 16:01] LABS: Basophils # (A) 0.1 k/uL (0-0.2); Basophils % (A) 1 %; Eosinophils # (A) 0.2 k/uL (0-0.7); Eosinophils % (A) 3 %; HCT 40.6 % (34.0-46.0); HGB 13.2 gm/dL (11.4-16.0); Lymphocytes # (A) 2.6 k/uL (1.0-4.8); Lymphocytes % (A) 34 %; MCH 27.2 pg (25.0-35.0); MCHC 32.5 g/dL (31.0-37.0); MCV 83.7 fL (80.0-100.0); Mean Platelet Volume 6.2; Monocytes # (A) 0.4 k/uL (0-1.0); Monocytes % (A) 5 %; Neutrophils # (A) 4.4 k/uL (1.3-7.7); Neutrophils % (A) 56 %; Platelet Count 233 k/uL (150-450); RBC 4.85 m/uL (3.80-5.40); RDW 14.8 % (11.5-15.5); WBC 7.9 k/uL (3.8-10.6)
[2018-04-19 16:10] LABS: ALT 27 U/L (9-52); AST 20 U/L (14-36); Albumin 4.1 g/dL (3.5-5.0); Alkaline Phosphatase 87 U/L (38-126); Anion Gap 8 mmol/L; Blood Urea Nitrogen 16 mg/dL (7-17); Calcium 8.8 mg/dL (8.4-10.2); Carbon Dioxide 24 mmol/L (22-30); Chloride 110 mmol/L (98-107); Glucose 97 mg/dL (74-99); Sodium 142 mmol/L (137-145); Total Bilirubin 0.4 mg/dL (0.2-1.3); Total Protein 7.1 g/dL (6.3-8.2)
== END | disposition home or self-care (01) ==
LOC: LABPAT 15:21
PROVIDERS: ATTEND Surgery Plastic and Reconstructive Surgery
DX: Z01.812 Encounter for preprocedural laboratory examination (principal)
CPT/HCPCS: 36415; 80053; 85025

== ENCOUNTER 2018-04-25 06:09 | Day surgery (SDC) | payer MEDICARE ==
[2018-04-18 14:33] VITALS: BMI 55.0
--- NOTE | 2018-04-24 17:05 | P.GSHP ---
History of Present Illness H&P Date: 04/25/18 CHIEF COMPLAINT: History of intra-abdominal adhesions HISTORY OF PRESENT ILLNESS: The patient is a 32-year-old female who presents with history of intra-abdominal adhesions from multiple prior surgeries including increasing abdominal pain. She now presents for diagnostic laparoscopy including lysis of adhesions. PAST MEDICAL HISTORY: Please see list. PAST SURGICAL HISTORY: Please see list. MEDICATIONS: Please see list. ALLERGIES: Please see list. SOCIAL HISTORY: No illicit drug use FAMILY HISTORY: No reports of Crohn disease or ulcerative colitis. REVIEW OF ORGAN SYSTEMS: CONSTITUTIONAL: No reports of fevers or chills. GI: Denies any blood in stools or constipation. PHYSICAL EXAM: VITAL SIGNS: Stable GENERAL: Well-developed pleasant and in no acute distress. HEENT: No scleral icterus. Extraocular movements grossly intact. Moist buccal mucosa. NECK: Supple without lymphadenopathy. CHEST: Unlabored respirations. Equal bilateral excursions. CARDIOVASCULAR: Regular rate and rhythm. Distal 2+ pulses. ABDOMEN: Soft, diffuse abdominal tenderness. No peritonitis. MUSCULOSKELETAL: No clubbing, cyanosis, or edema. ASSESSMENT: 1. Diffuse abdominal pain. 2. History of multiple abdominal surgeries. 3. Intra-abdominal adhesions. PLAN: 1. Robotic diagnostic laparoscopy with lysis of adhesions were described in detail including risk of injury to the intestine, need for further surgery, and open technique. 2. DVT prophylaxis. 3. Antibiotic prophylaxis. Past Medical History Past Medical History: Asthma, GERD/Reflux, Hypertension, Osteoarthritis (OA) Additional Past Medical History / Comment(s): "having difficulty swallowing and vomiting",Abdominal pain, back pain, hiatal hernia, anemia. 05/12/17: Dr. Ambrocio reports that the patient has a history of having periods of unresponsiveness as well as a history of a positive vaso-vagal response. History of Any Multi-Drug Resistant Organisms: None Reported Past Surgical History: Bariatric Surgery, Section, Cholecystectomy Additional Past Surgical History / Comment(s): 10/05/16 EGD with bx, sleeve gastrectomy 07/25/13, lysis of adhesions abd, hiatel hernia, EGD 05/11/17.gastric bypass 08-09-17 Past Anesthesia/Blood Transfusion Reactions: No Reported Reaction Additional Past Anesthesia/Blood Transfusion Reaction / Comment(s): Difficult IV start. Smoking Status: Former smoker - Past Family History Mother Family Medical History: No Reported History Father Family Medical History: Coronary Artery Disease (CAD) Additional Family Medical History / Comment(s): Father is 64yrs old. He has had a CABG. Medications and Allergies Home Medications Medication Instructions Recorded Confirmed Type Nystatin 1 applic TOPICAL DAILY PRN 02/04/17 04/18/18 History buPROPion HCL [Wellbutrin SR] 150 mg PO HS 08/05/17 04/18/18 History Omeprazole 40 mg PO DAILY #30 capsule. 08/11/17 04/18/18 Rx Polyethylene Glycol 3350 [Miralax] 17 gm PO DAILY #255 gm 09/15/17 04/18/18 Rx Adult Chewable Vitamins 2 tab PO DAILY 09/22/17 04/18/18 History diphenhydrAMINE [Benadryl] 25 mg PO QID PRN 12/21/17 04/18/18 History Allergies Allergy/AdvReac Type Severity Reaction Status Date / Time ibuprofen [From Motrin] Allergy Anaphylaxis Verified 04/18/18 14:29 iron Allergy Anaphylaxis Verified 04/18/18 14:29 to IV iron
[~2018-04-25 06:09] MED LIST changes: +DEXAMETHASONE SOD PHOSPHATE 10 MG/ML 1 ML VIAL IV ONE; +ENOXAPARIN 40 MG/0.4 ML SYRINGE SQ ONE; +ONDANSETRON 4 MG/2 ML VIAL IVP ONE
[2018-04-25] MEDS ORDERED: LIDOCAINE 1% 20 ML VIAL (10MG/ML) FOR IV START INTRADERMA ONE (06:35)
[2018-04-25] MEDS ORDERED: NEOSTIGMINE 1 MG/ML 10 ML VIAL ONE (07:32)
[2018-04-25] MEDS ORDERED: GLYCOPYRROLATE 0.2 MG/ML 2 ML VIAL ONE (07:32)
[2018-04-25] MEDS ORDERED: LIDOCAINE 1% INJ 10MG/ML (20 ML MDV) ONE (07:32)
[2018-04-25] MEDS ORDERED: ROCURONIUM BROMIDE 10 MG/ML 10 ML VIAL IV ONE (07:32)
[2018-04-25] MEDS ORDERED: MIDAZOLAM 2 MG/2 ML VIAL ONE (07:32)
[2018-04-25] MEDS ORDERED: fentaNYL (PF) 50 MCG/ML 2 ML AMP ONE (07:32)
[2018-04-25] MEDS ORDERED: PROPOFOL 10 MG/ML 20 ML VIAL IV ONE (07:32)
[2018-04-25] MEDS ORDERED: SUCCINYLCHOLINE CHLORIDE VIAL 200 MG/10 ML VIAL IV ONE (07:32)
[2018-04-25] MEDS ORDERED: BUPIVACAIN-EPI 0.5%-1:200,000 30 ML VIAL SQ ONE ×2 (08:05→08:21)
[2018-04-25] MEDS ORDERED: LACTATED RINGERS 1,000 ML IV ONE (10:00)
[2018-04-25 10:22] VITALS: TEMP 98.3
[2018-04-25] MEDS: HYDROmorphone 0.5 MG/0.5 ML SYRINGE IVP PRN ×2 (10:35→10:40)
--- NOTE | 2018-04-25 10:56 | P.OP ---
Date of Procedure: 04/25/18 Description of Procedure: SURGEON: SCOTTY ALBERTO MD PREOPERATIVE DIAGNOSES: 1. Morbid obesity due to excess calories. 2. Body mass index reduced from 71.2 to 55.2 3. Epigastric abdominal pain. 4. 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 5. Hypertensive heart disease. 6. History of obstructive sleep apnea. 7. Iron deficiency anemia. 8. Vitamin D deficiency. 9. Dietary surveillance and counseling. 10. History of depression. 11. Severe peritoneal adhesions POSTOPERATIVE DIAGNOSES: 1. Morbid obesity due to excess calories. 2. Body mass index reduced from 71.2 to 55.2 3. Epigastric abdominal pain. 4. 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 5. Hypertensive heart disease. 6. History of obstructive sleep apnea. 7. Iron deficiency anemia. 8. Vitamin D deficiency. 9. Dietary surveillance and counseling. 10. History of depression. 11. Severe peritoneal adhesions greater omentum to the abdominal wall OPERATION: 1. Robotic-assisted da Nasra Xi laparoscopic extensive lysis of adhesions over 1 hr COMPLICATIONS: None. Anesthesia: GETA local Estimated Blood Loss (ml): 5 Pathology: none sent Condition: stable Disposition: same day OPERATIVE FINDINGS: 1. Severe peritoneal adhesions including along the epigastrium, midline and left upper quadrant consistent with the patient's area of pain 2. Additional time for patient positioning secondary to patient's body habitus was over 30 minutes INDICATIONS: The patient is a 32-year-old female who presents with epigastric abdominal pain personal history of severe intra-abdominal peritoneal adhesions. Surgical intervention with lysis of adhesions was described given her history of severe adhesions. Informed consent was obtained. Robotic assisted laparoscopic approach was described. Benefits and risks of the procedure including but not limited to bleeding, infection, injury to the small bowel was described. Informed consent was obtained. DESCRIPTION OF PROCEDURE: Patient was brought to the operating room, placed in supine position. After general induction, the abdomen had been prepped and draped in standard sterile fashion. The robotic da Nasra XI system was primed. Additional time for patient preparation of 30 minutes was done secondary to patient's body habitus. After a timeout protocol was performed, the patient had been prepped and draped in standard sterile fashion. The robot was docked along the right lateral abdomen. The patient was repositioned in reverse Trendelenburg position of 6- degrees including 6- degrees elevation of the right side. A 5 mm 0 degrees laparoscopic trocar entry was performed along the left upper quadrant. The abdomen was insufflated to 15 mmHg pressure which she tolerated well. Diagnostic laparoscopy demonstrated severe intra-abdominal adhesions limiting view along the right abdomen. Severe adhesions involved the greater omentum to the anterior abdominal wall from the pelvis to the midline, epigastrium and left upper quadrant. The small bowel was unremarkable without evidence of dilation or suggestion of obstruction. No injury to the bowel, viscera or mesentery was identified. Next, three 8 mm robotic ports were placed along the right lateral abdomen. The camera 8-mm port was initially docked along the right upper quadrant where the least amount of adhesions were found. Please note that the ports were placed at least 8 cm away from the target anatomy. Additionally, added difficulty of her case included from her very narrow window between her rib cage and hip. Her umbilicus to xiphoid length was 33 cm also adding complexity to her case. Instruments were interchanged using only 3 ports for a grasper, vessel sealer, and scissors with cautery. Instruments were interchanged by the certified registered dental assistant including Bovie cautery scissors. I had sat at the console. The camera was initially positioned along the right upper quadrant with one trocar at the right lower abdomen to address adhesions followed by placement of vessel sealer after changing the camera port. Extensive lysis of adhesions over 1 hour was performed. Carefully the adhesions were taken down without injury to the small bowel. Severe adhesions along the epigastrium was confirmed as also the patient's location of her pain. The robot was undocked. All pneumoperitoneum and instruments were evacuated from the abdominal cavity. The incisions were reapproximated using 4-0 Monocryl in an interrupted subcuticular fashion. Please note along the trocar sites, local anesthetic was placed as a field block prior to insertion of all instruments. Liquid glue was applied to the skin. At the end of the procedure needle, sponge, and instrument count had been verified correct by the surgical physician assistant. The patient was transferred to postanesthesia care unit in stable condition. Intraoperative images including findings were described to the patients family. Console time 65 minutes Plan - Discharge Summary Discharge Rx Participant: Yes New Discharge Prescriptions: New HYDROcodone/APAP 5-325MG [[place] 5-325] 1 tab PO Q4HR PRN 3 Days #18 tab PRN Reason: Pain No Action Nystatin 1 applic TOPICAL DAILY PRN PRN Reason: Rash buPROPion HCL [Wellbutrin SR] 150 mg PO HS Omeprazole 40 mg PO DAILY #30 capsule. Polyethylene Glycol 3350 [Miralax] 17 gm PO DAILY #255 gm Adult Chewable Vitamins 2 tab PO DAILY Discharge Medication List Nystatin 1 applic TOPICAL DAILY PRN 02/04/17 [History] buPROPion HCL [Wellbutrin SR] 150 mg PO HS 08/05/17 [History] Omeprazole 40 mg PO DAILY #30 capsule. 08/11/17 [Rx] Polyethylene Glycol 3350 [Miralax] 17 gm PO DAILY #255 gm 09/15/17 [Rx] Adult Chewable Vitamins 2 tab PO DAILY 09/22/17 [History] HYDROcodone/APAP 5-325MG [[place] 5-325] 1 tab PO Q4HR PRN 3 Days #18 tab [Rx] Follow up Appointment(s)/Referral(s): [facility] [[facility]-STAFF] - 04/27/18 Patient Instructions/Handouts: Lysis of Abdominal Adhesions (DC) Activity/Diet/Wound Care/Special Instructions: May shower. NO BATHTUB SOAKS. No lifting over 4 pounds for 1 week. Discharge Disposition: HOME SELF-CARE
[2018-04-25 11:47] VITALS: RESP 18
[2018-04-25 12:22] VITALS: BP 138/79; PULSE 78
== END 2018-04-25 12:44 | disposition home or self-care (01) ==
LOC: OR 06:09
PROVIDERS: ATTEND Surgery Plastic and Reconstructive Surgery
DX: K66.0 Peritoneal adhesions (postprocedural) (postinfection) (principal); E66.01 Morbid (severe) obesity due to excess calories; Z68.43 Body mass index [BMI] 50.0-59.9, adult; Z98.84 Bariatric surgery status; I11.9 Hypertensive heart disease without heart failure; G47.33 Obstructive sleep apnea (adult) (pediatric); D50.9 Iron deficiency anemia, unspecified; E55.9 Vitamin D deficiency, unspecified; F32.9 Major depressive disorder, single episode, unspecified; J45.909 Unspecified asthma, uncomplicated; M19.90 Unspecified osteoarthritis, unspecified site; Z87.891 Personal history of nicotine dependence; Z79.899 Other long term (current) drug therapy; Z88.6 Allergy status to analgesic agent; Z88.8 Allergy status to other drugs, medicaments and biological substances
CPT/HCPCS: 81025; 49329; J2250; J0330; J1100; J2710; J0690; J2405; J2001; J1650; J3010; J2704; J1170; 86850; 86900; 86901

== ENCOUNTER → 2018-04-27 | Outpatient (CLI) | payer MEDICARE ==
[2018-04-27 17:09] VITALS: BP 161/97; PULSE 80; RESP 16; TEMP 97.6; BMI 54.7
--- NOTE | 2018-04-27 21:21 | P.PN ---
Subjective Progress Note Date: 04/27/18 DATE OF SERVICE: 04/27/2018 CHIEF COMPLAINT: Status post gastric bypass. HISTORY OF PRESENT ILLNESS: Lety De La Rosa is a 32-year-old female who is status post lysis of adhesions 04/25/2018. She is postoperative day 2.She has history of epigastric abdominal pain. Intraoperative findings are consistent with severe adhesions on the epigastrium. She still reports soreness today. Her main concern includes severe itching of her pannus following surgery. No reports of fevers or chills. She is passing flatus. She denies any epigastric abdominal pain. She denies any gastroesophageal reflux disease. She is accompanied by her father. At her height of 5 feet 10-1/4 inches, her initial weight was 499 pounds. Today she comes in weighing 381 pounds from 376 pounds, 3 weeks ago. She has gained 4 pounds in 3 weeks. Her ideal body weight is 173 pounds. She has maintained 118 pound weight loss, lifetime. Percent excess weight loss is 36 %. Body mass index is reduced from 71.2 down to 54.3. PHYSICAL EXAM: VITAL SIGNS: 5 feet 10-1/4 inches, 381 pounds. Body mass index is 54.3 Vital Signs Temp 97.6 F 04/27/18 17:03 Pulse 80 04/27/18 17:03 Resp 16 04/27/18 17:03 BP 161/97 04/27/18 17:03 Pulse Ox GENERAL: Well-developed, pleasant female in no acute distress. HEENT: No scleral icterus. Extraocular movements grossly intact. No nasal drainage. NECK: Supple without lymphadenopathy. CHEST: Nonlabored respirations, equal bilateral excursions. CARDIOVASCULAR: Palpable 2+ pulses. Regular rate. Regular rhythm. ABDOMEN: No signs of infection or cellulitis. Contact dermatitis noted on the skin folds. NEURO: No focal or lateralizing signs. Cranial nerves II through XII grossly within normal limits. PSYCH: Appropriate affect. Alert and oriented to person, place, and time. SKIN: Good skin turgor. Well perfused. ASSESSMENT: 1. Morbid obesity due to excess calories. 2. Body mass index reduced from 71.2 to 54.3 3. 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 4. Status post lysis of adhesions 5. Epigastric abdominal pain resolved 6. Contact dermatitis 7. Panniculitis PLAN: 1. Abdominal binder for comfort. 2. Atarax for itching 3. Post-op discomfort expected given extent of lysis of adhesions. 4. Patient may follow up next week at [facility] - Vital Signs Vital signs: Vital Signs Temp 97.6 F 04/27/18 17:03 Pulse 80 04/27/18 17:03 Resp 16 04/27/18 17:03 BP 161/97 04/27/18 17:03 Pulse Ox Intake & Output 04/27/18 04/27/18 04/28/18 06:59 18:59 06:59 Weight 172.989 kg
== END | disposition home or self-care (01) ==
LOC: BARWHC3 16:42
PROVIDERS: ATTEND Surgery Plastic and Reconstructive Surgery
DX: Z48.815 Encounter for surgical aftercare following surgery on the digestive system (principal); E66.01 Morbid (severe) obesity due to excess calories; M79.3 Panniculitis, unspecified; L25.9 Unspecified contact dermatitis, unspecified cause; Z98.84 Bariatric surgery status; Z98.890 Other specified postprocedural states; Z68.43 Body mass index [BMI] 50.0-59.9, adult
CPT/HCPCS: 99211

== ENCOUNTER 2018-08-08 13:30 | Day surgery (SDC) | payer MEDICARE ==
[2018-08-04 10:18] VITALS: BMI 52.9
--- NOTE | 2018-08-08 06:37 | P.GSHP ---
History of Present Illness H&P Date: 08/08/18 CHIEF COMPLAINT: GERD HISTORY OF PRESENT ILLNESS: The patient is a 32-year-old female who presents reports gastroesophageal reflux disease. Upper endoscopy was offered for further evaluation and management. PAST MEDICAL HISTORY: Please see list. PAST SURGICAL HISTORY: Please see list. MEDICATIONS: Please see list. ALLERGIES: Please see list. SOCIAL HISTORY: No illicit drug use FAMILY HISTORY: No reports of Crohn disease or ulcerative colitis. REVIEW OF ORGAN SYSTEMS: CONSTITUTIONAL: No reports of fevers or chills. GI: Denies any blood in stools or constipation. PHYSICAL EXAM: VITAL SIGNS: Stable GENERAL: Well-developed and pleasant in no acute distress. HEENT: No scleral icterus. Extraocular movements grossly intact. Moist buccal mucosa. NECK: Supple without lymphadenopathy. CHEST: Unlabored respirations. Equal bilateral excursions. CARDIOVASCULAR: Regular rate and rhythm. Distal 2+ pulses. ABDOMEN: Soft, nondistended. MUSCULOSKELETAL: No clubbing, cyanosis, or edema. ASSESSMENT: 1. Gastroesophageal reflux disease PLAN: 1. Recommend proceeding with an upper endoscopy Past Medical History Past Medical History: Asthma, GERD/Reflux, Osteoarthritis (OA) Additional Past Medical History / Comment(s): "having difficulty swallowing and vomiting",Abdominal pain, back pain, hiatal hernia, anemia. 05/12/17: Dr. Ambrocio reports that the patient has a history of having periods of unresponsiveness as well as a history of a positive vaso-vagal response. History of Any Multi-Drug Resistant Organisms: None Reported Past Surgical History: Bariatric Surgery, Section, Cholecystectomy, Hernia Repair Additional Past Surgical History / Comment(s): 10/05/16 EGD, sleeve gastrectomy 07/25/13, lysis of adhesions abd, hiatel hernia, EGD 05/11/17.gastric bypass surgery to remove lesions Past Anesthesia/Blood Transfusion Reactions: No Reported Reaction Additional Past Anesthesia/Blood Transfusion Reaction / Comment(s): Difficult IV start. Smoking Status: Former smoker - Past Family History Mother Family Medical History: No Reported History Father Family Medical History: Coronary Artery Disease (CAD) Additional Family Medical History / Comment(s): Father is 64yrs old. He has had a CABG. Medications and Allergies Home Medications Medication Instructions Recorded Confirmed Type Nystatin 1 applic TOPICAL DAILY PRN 02/04/17 08/04/18 History buPROPion HCL [Wellbutrin SR] 150 mg PO HS 08/05/17 08/04/18 History Adult Chewable Vitamins 2 tab PO DAILY 09/22/17 08/04/18 History HYDROcodone/APAP 5-325MG [[place] 1 tab PO Q4HR PRN 3 Days #18 tab 04/25/18 Rx 5-325] hydrOXYzine HCL [Atarax] 25 mg PO TID PRN #30 tab 04/27/18 08/04/18 Rx Allergies Allergy/AdvReac Type Severity Reaction Status Date / Time ibuprofen [From Motrin] Allergy Anaphylaxis Verified 08/04/18 10:13 iron Allergy Anaphylaxis Verified 08/04/18 10:13 to [place]
[2018-08-08 13:27] VITALS: TEMP 97.8
[~2018-08-08 13:30] MED LIST changes: -DEXAMETHASONE SOD PHOSPHATE 10 MG/ML 1 ML VIAL IV ONE; -ENOXAPARIN 40 MG/0.4 ML SYRINGE SQ ONE; +LIDOCAINE 1% 20 ML VIAL (10MG/ML) FOR IV START INTRADERMA PRN; -ONDANSETRON 4 MG/2 ML VIAL IVP ONE
[2018-08-08] MEDS ORDERED: PROPOFOL 10 MG/ML 20 ML VIAL IV ONE (16:01)
--- NOTE | 2018-08-08 16:23 | P.PCN ---
Date of Procedure: 08/08/18 Description of Procedure: PREOPERATIVE DIAGNOSIS: Dysphagia. s/p Savi-en-y gastric bypass. Nausea with vomiting. Morbid obesity, BMI 52.9 POSTOPERATIVE DIAGNOSIS: Dysphagia. s/p Savi-en-y gastric bypass. Nausea with vomiting. Morbid obesity, BMI 52.9 Gastrojejunal stricture with chronic ulcer without perforation OPERATION: Esophagogastrojejunoscopy with balloon dilatation 20 mm. SURGEON: Natalia Ambrocio MD ANESTHESIA: MAC. INDICATIONS: The patient is a 32-year-old female who presents with a history of dysphagia, gastric bypass including nausea and vomiting. Benefits and risks of the procedure were described. Informed consent was obtained. DESCRIPTION: The patient was brought into the endoscopy suite and laid in the left lateral decubitus position. After a timeout was confirmed, the procedure was initiated. An Olympus gastroscope was passed along the posterior oropharynx down to the distal esophagus where the squamocolumnar junction was unremarkable. The gastric pouch was entered. A gastrojejunal stricture of 15 mm was found as the adult gastroscope was 9.5 mm in size. A Paymentus balloon dilator was placed through the scope. Final insufflation up to 20 mm was performed with a total of 2 minutes. The scope was advanced up to 60 cm from the incisors into the Savi limb. The mucosa of the gastrojejunal anastomosis was intact. No chronic gastrojejunal marginal ulcer was encountered. No full-thickness injury was encountered. The GI tract was desufflated. The patient tolerated the procedure well. FINDINGS: Stricture of approximately 15 mm encountered. No chronic gastrojejunal ulceration encountered. Successful balloon dilatation to 20 mm. Distortion of gastric pouch with marked right angulation for entry RECOMMENDATIONS: 1. Upper endoscopy as needed. 2. May need future revision of gastrojejunostomy Plan - Discharge Summary New Discharge Prescriptions: No Action Nystatin 1 applic TOPICAL DAILY PRN PRN Reason: Rash buPROPion HCL [Wellbutrin SR] 150 mg PO HS Adult Chewable Vitamins 2 tab PO DAILY HYDROcodone/APAP 5-325MG [[place] 5-325] 1 tab PO Q4HR PRN 3 Days #18 tab PRN Reason: Pain hydrOXYzine HCL [Atarax] 25 mg PO TID PRN #30 tab PRN Reason: Itching Discharge Medication List Nystatin 1 applic TOPICAL DAILY PRN 02/04/17 [History] buPROPion HCL [Wellbutrin SR] 150 mg PO HS 08/05/17 [History] Adult Chewable Vitamins 2 tab PO DAILY 09/22/17 [History] HYDROcodone/APAP 5-325MG [[place] 5-325] 1 tab PO Q4HR PRN 3 Days #18 tab [Rx] hydrOXYzine HCL [Atarax] 25 mg PO TID PRN #30 tab 04/27/18 [Rx] Patient Instructions/Handouts: *[facility] - (Anesthesia) Endoscopy Discharge Instructions, Upper Endoscopy (DC)
[2018-08-08 16:29] VITALS: RESP 18
[2018-08-08 16:42] VITALS: BP 126/80; PULSE 81
== END 2018-08-08 17:05 | disposition home or self-care (01) ==
LOC: ORWHC2ENDO 13:30
PROVIDERS: ATTEND Surgery Plastic and Reconstructive Surgery
DX: K31.89 Other diseases of stomach and duodenum (principal); K56.699 Other intestinal obstruction unspecified as to partial versus complete obstruction; K21.9 Gastro-esophageal reflux disease without esophagitis; E66.01 Morbid (severe) obesity due to excess calories; Z98.84 Bariatric surgery status; J45.909 Unspecified asthma, uncomplicated; M19.90 Unspecified osteoarthritis, unspecified site; D64.9 Anemia, unspecified; Z68.43 Body mass index [BMI] 50.0-59.9, adult; Z79.899 Other long term (current) drug therapy; Z88.8 Allergy status to other drugs, medicaments and biological substances; Z87.891 Personal history of nicotine dependence
CPT/HCPCS: 81025; 43249; J2704; C1726; 97803

== ENCOUNTER → 2018-08-08 | Outpatient (CLI) | payer MEDICARE ==
[2018-08-08 16:21] VITALS: BMI 52.5
== END ==
LOC: BARWHC3 12:15 → ORWHC2ENDO 13:00
PROVIDERS: ATTEND Surgery Plastic and Reconstructive Surgery
DX: E66.01 Morbid (severe) obesity due to excess calories (principal); Z68.43 Body mass index [BMI] 50.0-59.9, adult
CPT/HCPCS: 97803

== ENCOUNTER → 2018-08-17 | Outpatient (CLI) | payer MEDICARE ==
[2018-08-17 14:00] LABS: HCT 38.7 % (34.0-46.0); HGB 12.6 gm/dL (11.4-16.0); MCH 27.4 pg (25.0-35.0); MCHC 32.6 g/dL (31.0-37.0); Mean Platelet Volume 6.6; Platelet Count 220 k/uL (150-450); RBC 4.61 m/uL (3.80-5.40); RDW 14.7 % (11.5-15.5); WBC 7.6 k/uL (3.8-10.6)
[2018-08-17 14:14] LABS: INR 0.9 (<1.2); Partial Thromboplastin Time 27.6 sec (22.0-30.0); Prothrombin Time 10.1 sec (9.0-12.0)
[2018-08-17 19:25] LABS: Albumin 4.3 g/dL (3.80-4.90); Albumin/Globulin Ratio 1.72 (1.20-2.10); Anion Gap 6.4 mmol/L (4.00-12.00); Calcium 9.1 mg/dL (8.7-10.3); Carbon Dioxide 30.6 mmol/L (21.6-31.8); Globulin 2.5 g/dL (2.1-3.7); Magnesium 2.1 mg/dL (1.5-2.4); Phosphorus 4.2 mg/dL (2.4-5.1); Potassium 3.8 mmol/L (3.5-5.5); Total Bilirubin 0.5 mg/dL (0.3-1.2); Total Protein 6.8 g/dL (6.2-8.2)
[2018-08-17 19:40] LABS: Vitamin D 25 Hydroxy 34.1 ng/mL (30.0-100.0)
[2018-08-17 19:52] LABS: Folate, Serum 11.5 ng/mL; Iron Saturation 11.11 (12.00-45.00)
[2018-08-17 21:17] LABS: Parathyroid Hormone Intact 79.9 pg/mL (14.0-72.0)
[2018-08-17 21:35] LABS: Hemoglobin A1C 5.1 % (4.0-6.0)
[2018-08-18 14:04] LABS: Zinc, Serum 67 ug/dL (60-130)
[2018-08-19 06:55] LABS: Vitamin A 33 ug/dL (38-106)
[2018-08-19 07:08] LABS: Vitamin B1 51 ug/L (38-122)
== END | disposition home or self-care (01) ==
LOC: LABWHC1 13:02
PROVIDERS: ATTEND Surgery Plastic and Reconstructive Surgery
DX: E21.1 Secondary hyperparathyroidism, not elsewhere classified (principal); E89.1 Postprocedural hypoinsulinemia; D50.9 Iron deficiency anemia, unspecified; E44.0 Moderate protein-calorie malnutrition; E55.9 Vitamin D deficiency, unspecified; N19 Unspecified kidney failure; K50.90 Crohn's disease, unspecified, without complications; K74.1 Hepatic sclerosis; E66.01 Morbid (severe) obesity due to excess calories
CPT/HCPCS: 36415; 80053; 80061; 82306; 82525; 82607; 82728; 82746; 83036; 83540; 83550; 83735; 83970; 84100; 84134; 84255; 84425; 84443; 84590; 84630; 85027; 85610; 85730

== ENCOUNTER 2018-09-14 19:44 | Emergency (ER) | payer MEDICARE ==
[2018-09-14] MEDS ORDERED: MORPHINE SULFATE 4 MG/ML SYRINGE IM STA (22:39)
--- NOTE | 2018-09-14 23:19 | US ---
EXAMINATION TYPE: US venous doppler duplex LE LT DATE OF EXAM: 09/14/2018 11:11 PM COMPARISON: NONE CLINICAL HISTORY: Pain. Pain SIDE PERFORMED: Left TECHNIQUE: The lower extremity deep venous system is examined utilizing real time linear array sonog brenda with graded compression, doppler sonography and color-flow sonography. VESSELS IMAGED: External Iliac Vein (EIV) Common Femoral Vein Deep Femoral Vein Greater Saphenous Vein * Femoral Vein Popliteal Vein Small Saphenous Vein * Proximal Calf Veins (* superficial vessels) Left Leg: Negative for DVT No evidence of DVT left leg. IMPRESSION: Normal left leg duplex venous sonogram.
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
[2018-09-15] MEDS ORDERED: NALOXONE 0.4 MG/ML 1 ML VIAL IM STA (00:30)
[2018-09-15 01:04] VITALS: BP 133/90; PULSE 82; RESP 16; TEMP 98.5
== END 2018-09-15 01:07 | disposition home or self-care (01) ==
LOC: EC 19:44
DX: M79.605 Pain in left leg (principal); R07.2 Precordial pain; F32.9 Major depressive disorder, single episode, unspecified; Z87.891 Personal history of nicotine dependence; Z79.899 Other long term (current) drug therapy; Z88.6 Allergy status to analgesic agent; Z91.048 Other nonmedicinal substance allergy status; Z90.49 Acquired absence of other specified parts of digestive tract; Z98.84 Bariatric surgery status; Z98.890 Other specified postprocedural states
CPT/HCPCS: 93005; 93971; 99284; 96372; J2270

== ENCOUNTER → 2018-10-12 | Outpatient (CLI) | payer MEDICARE ==
--- NOTE | 2018-10-12 11:48 | FL ---
ESOPHOGRAM. HISTORY: Dysphagia Single contrast esophagram was performed. There are changes of prior Jez fundoplication. There is evidence of gastric bypass. Contrast empti es into the small bowel without difficulty or delay. No evidence for leak or obstruction. Esophageal peristalsis and motility appear to be within normal limits. There is no evidence for filling defect, mass or diverticulum. No hiatal hernia seen. IMPRESSION: Postoperative changes as discussed without evidence for leak or obstruction.
== END | disposition home or self-care (01) ==
LOC: RADFLWHC 10:36
PROVIDERS: ATTEND Surgery Plastic and Reconstructive Surgery
DX: R13.10 Dysphagia, unspecified (principal); Z98.84 Bariatric surgery status
CPT/HCPCS: 74220

== ENCOUNTER → 2018-10-21 | Day surgery (SDC) | payer MEDICARE ==
[2018-10-19 11:42] VITALS: BMI 51.6
[~2018-10-21] MED LIST changes: +KETAMINE 10 MG/ML 20 ML VIAL ONE; +LACTATED RINGERS 1,000 ML IV ONE; +LIDOCAINE 1% 20 ML VIAL (10MG/ML) FOR IV START INTRADERMA ONE; -LIDOCAINE 1% 20 ML VIAL (10MG/ML) FOR IV START INTRADERMA PRN; +LIDOCAINE 1% INJ 10MG/ML (20 ML MDV) ONE; +MIDAZOLAM 2 MG/2 ML VIAL ONE; +PROPOFOL 10 MG/ML 20 ML VIAL IV ONE; +SODIUM CHLORIDE 0.9% 1,000 ML IV SCH
--- NOTE | 2018-10-21 07:33 | P.GSHP ---
History of Present Illness H&P Date: 10/21/18 CHIEF COMPLAINT: GERD and colon screen HISTORY OF PRESENT ILLNESS: The patient is a 35-year-old female who presents with gastroesophageal reflux disease and need for colon screen. Upper and lower endoscopy were offered for further evaluation and management. PAST MEDICAL HISTORY: Please see list. PAST SURGICAL HISTORY: Please see list. MEDICATIONS: Please see list. ALLERGIES: Please see list. SOCIAL HISTORY: No illicit drug use FAMILY HISTORY: No reports of Crohn disease or ulcerative colitis. REVIEW OF ORGAN SYSTEMS: CONSTITUTIONAL: No reports of fevers or chills. GI: Denies any blood in stools or constipation. PHYSICAL EXAM: VITAL SIGNS: Stable GENERAL: Well-developed pleasant in no acute distress. HEENT: No scleral icterus. Extraocular movements grossly intact. Moist buccal mucosa. NECK: Supple without lymphadenopathy. CHEST: Unlabored respirations. Equal bilateral excursions. CARDIOVASCULAR: Regular rate and rhythm. Distal 2+ pulses. ABDOMEN: Soft, nondistended. MUSCULOSKELETAL: No clubbing, cyanosis, or edema. ASSESSMENT: 1. Gastroesophageal reflux disease 2. Colon screen. PLAN: 1. Recommend proceeding with an upper and lower endoscopy Past Medical History Past Medical History: Asthma, GERD/Reflux, Osteoarthritis (OA) Additional Past Medical History / Comment(s): back pain, hiatal hernia History of Any Multi-Drug Resistant Organisms: None Reported Past Surgical History: Bariatric Surgery, Section, Cholecystectomy, Hernia Repair Additional Past Surgical History / Comment(s): 10/05/16 EGD, sleeve gastrectomy 07/25/13, lysis of adhesions abd, hiatel hernia, EGD gastric bypass 08-09-17 , Past Anesthesia/Blood Transfusion Reactions: No Reported Reaction Additional Past Anesthesia/Blood Transfusion Reaction / Comment(s): Difficult IV start. Smoking Status: Former smoker - Past Family History Mother Family Medical History: No Reported History Father Family Medical History: Coronary Artery Disease (CAD) Additional Family Medical History / Comment(s): Father is 64yrs old. He has had a CABG. Medications and Allergies Home Medications Medication Instructions Recorded Confirmed Type Nystatin 1 applic TOPICAL DAILY PRN 02/04/17 10/19/18 History buPROPion HCL [Wellbutrin SR] 150 mg PO HS 08/05/17 10/19/18 History Adult Chewable Vitamins 2 tab PO DAILY 09/22/17 10/19/18 History HYDROcodone/APAP 5-325MG [[place] 1 tab PO Q4HR PRN 3 Days #18 tab 04/25/18 Rx 5-325] hydrOXYzine HCL [Atarax] 25 mg PO TID PRN #30 tab 04/27/18 10/19/18 Rx Ergocalciferol (Vitamin D2) 50,000 unit PO MO 10/19/18 10/19/18 History [Vitamin D2] Allergies Allergy/AdvReac Type Severity Reaction Status Date / Time ibuprofen [From Motrin] Allergy Anaphylaxis Verified 10/19/18 11:16 iron Allergy Anaphylaxis Verified 10/19/18 11:16 to Venofer
[2018-10-21 09:46] VITALS: TEMP 97.3
--- NOTE | 2018-10-21 10:26 | P.PCN ---
Date of Procedure: 10/21/18 Description of Procedure: PREOPERATIVE DIAGNOSIS: Dysphagia. Morbid obesity, BMI 52.9. Nausea with vomiting. Epigastric abdominal pain POSTOPERATIVE DIAGNOSIS: Dysphagia. Morbid obesity, BMI 52.9. Nausea with vomiting. Epigastric abdominal pain Gastrojejunal stricture OPERATION: Esophagogastrojejunoscopy with balloon dilatation 20 mm. SURGEON: Natalia Ambrocio MD ANESTHESIA: MAC. INDICATIONS: The patient is a 33-year-old female who presents with a history of dysphagia and epigastric abdominal pain. Benefits and risks of the procedure were described. Informed consent was obtained. DESCRIPTION: The patient was brought into the endoscopy suite and laid in the left lateral decubitus position. After a timeout was confirmed, the procedure was initiated. An Olympus gastroscope was passed along the posterior oropharynx down to the distal esophagus where the squamocolumnar junction was unremarkable. The gastric pouch was entered. A gastrojejunal stricture of 18 mm was found as the adult gastroscope was 9.5 mm in size. A AudioCompass balloon dilator was placed through the scope. Final insufflation up to 20 mm was performed with a total of 2 minutes. The scope was advanced up to 60 cm from the incisors into the Savi limb. The mucosa of the gastrojejunal anastomosis was intact. No chronic gastrojejunal marginal ulcer was encountered. No full-thickness injury was encountered. The GI tract was desufflated. The patient tolerated the procedure well. FINDINGS: Stricture of approximately 18 mm encountered. No chronic gastrojejunal ulceration encountered. Successful balloon dilatation to 20 mm. Distortion of gastric pouch with marked angulation improved since last upper endoscopy Gastric pouch from 40 cm to 50 cm from the incisor RECOMMENDATIONS: 1. Upper endoscopy as needed. 2. May need future revision of gastrojejunostomy
--- NOTE | 2018-10-21 10:38 | P.PCN ---
Date of Procedure: 10/21/18 Description of Procedure: PREOPERATIVE DIAGNOSIS: Change in bowel habits with generalized abdominal pain POSTOPERATIVE DIAGNOSIS: Change in bowel habits with generalized abdominal pain Constipation OPERATION: Colonoscopy to the sigmoid colon. SURGEON: Natalia Ambrocio MD. ANESTHESIA: MAC. INDICATIONS: The patient is a 33-year-old female who presents with change in bowel habits. Benefits and risks were described and informed consent was obtained. DESCRIPTION OF PROCEDURE: The patient had undergone Gatorade, MiraLAX and Dulcolax prep. She had been brought into the endoscopy suite and laid in the left lateral decubitus position. After adequate intravenous sedation, the rectum was examined with 2% lidocaine jelly. No external hemorrhoids were encountered. The rectal tone was within normal limits. Soft stool was found in the rectal vault. An Olympus colonoscope was advanced along the rectum into a very tortuous sigmoid colon. The patient had a very poor prep. Despite multiple maneuvers, the sigmoid colon had tortuosity preventing further advancement of scope. The scope was passed to 40 cm from the anal verge. No evidence of polyps were identified at the portion of colon that was reviewed. The rest of the procedure was discontinued secondary to limited visibility and increased risk for harm. The colon was desufflated. The patient had tolerated the procedure well. Withdrawal time was over 6 minutes. FINDINGS: Tortuous sigmoid colon preventing further advancement of the scope. Poor prep Scope advanced beyond sigmoid colon at 40 cm. No arteriovenous malformations. No adenomatous polyps. No focal colitis. RECOMMENDATIONS: Completion of colonoscopy evaluation with barium enema. Plan - Discharge Summary Discharge Rx Participant: No New Discharge Prescriptions: No Action Nystatin 1 applic TOPICAL DAILY PRN PRN Reason: Rash buPROPion HCL [Wellbutrin SR] 150 mg PO HS Adult Chewable Vitamins 2 tab PO DAILY HYDROcodone/APAP 5-325MG [[place] 5-325] 1 tab PO Q4HR PRN 3 Days #18 tab PRN Reason: Pain hydrOXYzine HCL [Atarax] 25 mg PO TID PRN #30 tab PRN Reason: Itching Ergocalciferol (Vitamin D2) [Vitamin D2] 50,000 unit PO MO Discharge Medication List Nystatin 1 applic TOPICAL DAILY PRN 02/04/17 [History] buPROPion HCL [Wellbutrin SR] 150 mg PO HS 08/05/17 [History] Adult Chewable Vitamins 2 tab PO DAILY 09/22/17 [History] HYDROcodone/APAP 5-325MG [[place] 5-325] 1 tab PO Q4HR PRN 3 Days #18 tab [Rx] hydrOXYzine HCL [Atarax] 25 mg PO TID PRN #30 tab 04/27/18 [Rx] Ergocalciferol (Vitamin D2) [Vitamin D2] 50,000 unit PO MO 10/19/18 [History]
[2018-10-21 12:08] VITALS: BP 141/76; PULSE 77; RESP 18
--- NOTE | 2018-10-21 15:09 | FL ---
EXAMINATION TYPE: FL barium enema DATE OF EXAM: 10/21/2018 COMPARISON: NONE HISTORY: Incomplete colonoscopy due to poor prep and high stool burden. TECHNIQUE: A single contrast barium enema study is performed. 2.13 minutes of fluoroscopy time was u tilized with 66 fluoroscopic images saved. FINDINGS: Supervisor Opening And Picking view of the abdomen shows overall non-obstructive bowel gas pattern although there i s multifocal moderate degree retained stool. No grossly obstructing colonic mass is seen. Evaluation for polyps and smaller masses is extremely li mited due to stool burden and patient body habitus. The patient was not mobile for the examination to unfold overlapping loops of bowel. The terminal ileum was refluxed and appeared within normal limits . Cholecystectomy clips are evident. IMPRESSION: Markedly limited exam secondary to multifocal moderate stool burden remaining throughout the colon. However no obstructing mass is seen throughout the visualized colon. Note the redundant p roximal sigmoid colon cannot be visualized as the patient was not mobile for the exam and was upper l imits of the table weight.
== END | disposition home or self-care (01) ==
LOC: ORWHC2ENDO 09:12
PROVIDERS: ATTEND Surgery Plastic and Reconstructive Surgery
DX: K31.89 Other diseases of stomach and duodenum (principal); K21.9 Gastro-esophageal reflux disease without esophagitis; Q43.8 Other specified congenital malformations of intestine; J45.909 Unspecified asthma, uncomplicated; M19.90 Unspecified osteoarthritis, unspecified site; Z87.891 Personal history of nicotine dependence; Z79.899 Other long term (current) drug therapy; Z88.6 Allergy status to analgesic agent; Z91.048 Other nonmedicinal substance allergy status
CPT/HCPCS: 81025; 74270; 43245; 45330; J2250; J2001; J2704; C1726

== ENCOUNTER → 2018-12-06 | Outpatient (CLI) | payer MEDICARE ==
[2018-12-06 15:11] LABS: HCT 40.9 % (34.0-46.0); HGB 12.6 gm/dL (11.4-16.0); MCH 25.6 pg (25.0-35.0); MCHC 30.9 g/dL (31.0-37.0); MCV 83.1 fL (80.0-100.0); Mean Platelet Volume 6.4; Platelet Count 254 k/uL (150-450); RBC 4.92 m/uL (3.80-5.40); RDW 14.7 % (11.5-15.5); WBC 9.4 k/uL (3.8-10.6)
[2018-12-06 15:47] LABS: INR 0.9 (<1.2); Partial Thromboplastin Time 26.3 sec (22.0-30.0); Prothrombin Time 9.8 sec (9.0-12.0)
[2018-12-06 19:36] LABS: Albumin 4.2 g/dL (3.80-4.90); Albumin/Globulin Ratio 1.56 (1.60-3.17); Anion Gap 7.3 mmol/L (4.00-12.00); Calcium 9.1 mg/dL (8.7-10.3); Carbon Dioxide 29.7 mmol/L (21.6-31.8); Globulin 2.7 g/dL (1.6-3.3); LDL Cholesterol,Calculated 71.4 mg/dL (0.0-131.0); Phosphorus 3.7 mg/dL (2.4-5.1); Potassium 4.1 mmol/L (3.5-5.5); Total Bilirubin 0.3 mg/dL (0.3-1.2); Total Protein 6.9 g/dL (6.2-8.2); VLDL Calculation 37.6 mg/dL (5.00-40.00)
[2018-12-06 19:40] LABS: Iron Saturation 9.41 (12.00-45.00)
[2018-12-06 19:46] LABS: Vitamin D 25 Hydroxy 20.8 ng/mL (30.0-100.0)
[2018-12-06 19:48] LABS: Folate, Serum 11.3 ng/mL
[2018-12-06 19:52] LABS: Parathyroid Hormone Intact 71.6 pg/mL (14.0-72.0)
[2018-12-06 21:01] LABS: Hemoglobin A1C 4.9 % (4.0-6.0)
[2018-12-07 13:15] LABS: Vit B1(Thiamine) 82 ug/L (38-122)
[2018-12-07 13:28] LABS: Zinc, Serum 64 ug/dL (60-130)
[2018-12-08 06:46] LABS: Vitamin A 38 ug/dL (38-106)
== END | disposition home or self-care (01) ==
LOC: LABWHC1 13:29
PROVIDERS: ATTEND Surgery Plastic and Reconstructive Surgery
DX: E21.1 Secondary hyperparathyroidism, not elsewhere classified (principal); E89.1 Postprocedural hypoinsulinemia; D50.8 Other iron deficiency anemias; K90.89 Other intestinal malabsorption; E55.9 Vitamin D deficiency, unspecified; K74.1 Hepatic sclerosis; N19 Unspecified kidney failure; K50.90 Crohn's disease, unspecified, without complications
CPT/HCPCS: 36415; 80053; 80061; 82306; 82525; 82607; 82728; 82746; 83036; 83540; 83550; 83735; 83970; 84100; 84134; 84255; 84425; 84443; 84590; 84630; 85027; 85610; 85730

== ENCOUNTER → 2019-04-19 | Outpatient (CLI) | payer MEDICARE ==
--- NOTE | 2019-04-19 20:35 | P.PN ---
Subjective Progress Note Date: 04/19/19 DATE OF SERVICE: 04/19/2019 CHIEF COMPLAINT: Status post gastric bypass. HISTORY OF PRESENT ILLNESS: Lety De La Rosa is a 33-year-old female who is status post sleeve to gastric bypass, 08/09/2017. She is almost 2 years out. She has lost another 30 pounds in 1 yeat. She reports epigastric pain. She is gulping. She is not gasey. She takes omeprazole daily. She report pressure pain in her chest. No reports of pain while sleeping. She reports mild discomfort with pain getting worse during the day. She reports food comes back up into her throat. She also reports tumors along her brain where she has chronic seizures and syncopal episodes. At her height of 5 feet 10.25 inches, her initial weight was 499 pounds. Today she comes in weighing 356 pounds from 381 pounds, 1 year ago. She has lost 24 pounds in 1 year. Her ideal body weight is 173 pounds. She has maintained 143 pound weight loss, lifetime. Percent excess weight loss is 44 %. Body mass index is reduced from 71.2 down to 50.9 PAST MEDICAL HISTORY: 1. Morbid obesity, BMI 71.2, initial 2. Iron deficiency anemia. 3. Hypertensive heart disease. 4. Gastroesophageal reflux disease. 5. Depression. 6. Asthma. 7. Chronic pain. 8. Diaphragmatic hiatal hernia. PAST SURGICAL HISTORY: 1. Sleeve gastrectomy in July 2013. 2. section. 3. Cholecystectomy. 4. Upper endoscopy. 5. Hiatal hernia repair, 05/2017 6. Gastric bypass, 08/2017 7. Lysis of adhesions, 2017 MEDICATIONS: Home Medications Medication Instructions Recorded Confirmed Nystatin 1 applic TOPICAL DAILY PRN 02/04/17 04/19/19 buPROPion HCL [Wellbutrin SR] 150 mg PO HS 08/05/17 04/19/19 Adult Chewable Vitamins 2 tab PO DAILY 09/22/17 04/19/19 Ergocalciferol (Vitamin D2) 50,000 unit PO MO 10/19/18 04/19/19 [Vitamin D2] Ergocalciferol [Vitamin D2 50,000 unit PO WEEKLY 12/21/18 04/19/19 (DRISDOL)] Gabapentin [Neurontin] 800 mg PO TID 04/19/19 04/19/19 HYDROcodone/APAP 7.5-325MG [[place] 1 tab PO TID 04/19/19 04/19/19 7.5-325] Previous Rx's Medication Instructions Recorded hydrOXYzine HCL [Atarax] 25 mg PO TID PRN #30 tab 04/27/18 Docusate [Colace] 100 mg PO DAILY #20 capsule 10/21/18 Polyethylene Glycol 3350 [Miralax] 17 gm PO DAILY #256 gm 10/21/18 ALLERGIES: IBUPROFEN, VENOFER - Anaphylaxis SOCIAL HISTORY: Lifelong nontobacco user. FAMILY HISTORY: Pertinent for diabetes including morbid obesity. REVIEW OF SYSTEMS: CONSTITUTIONAL: [place] body weight is 173 pounds. Highest weight of 499 pounds. She is still 214 pounds overweight. BMI 71.9 initial GASTROINTESTINAL: Gastroesophageal reflux disease present. PSYCH: History of depression without any recent suicidal ideation. HEENT: Has troubles with hearing. Wears glasses. drainage. Past reports of active dysphagia to solid foods. RESPIRATORY: Has prior history of obstructive sleep apnea, improved. No pn eumonia. CARDIOVASCULAR: History of hypertension improved. No recent palpitations. MUSCULOSKELETAL: Diffuse osteoarthritis especially of the knees and hips, improved. NEURO: New seizure disorder and syncopal episodes HEMATOLOGIC: Denies any DVTs. No easy bruising. Has chronic anemia. SKIN: Has panniculitis. No skin cancer. PHYSICAL EXAM: VITAL SIGNS: 5 feet 10.25 inches, 356 pounds. Body mass index is 50.9 Vital Signs Temp 97.6 F 04/19/19 16:37 Pulse 71 04/19/19 16:37 Resp BP 128/82 04/19/19 16:37 Pulse Ox GENERAL: Well-developed, pleasant female in no acute distress. HEENT: No scleral icterus. Extraocular movements grossly intact. No nasal drainage. NECK: Supple without lymphadenopathy. CHEST: Nonlabored respirations, equal bilateral excursions. CARDIOVASCULAR: Palpable 2+ pulses. Regular rate. Regular rhythm. ABDOMEN: Mild tenderness along the epigastrium. No peritonitis. NEURO: No focal or lateralizing signs. Cranial nerves II through XII grossly within normal limits. PSYCH: Appropriate affect. Alert and oriented to person, place, and time. SKIN: Good skin turgor. Well perfused. STUDIES: Esophagram reviewed otherwise within normal limits. ASSESSMENT: 1. Morbid obesity due to excess calories. 2. Body mass index reduced from 71.2 to 50.9 3. 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 4. Epigastric abdominal pain 5. History of brain tumors of the occiput 5. Chronic syncooal episodes 6. History gastrojejunal stricture 7. Dysphagia 9. Seizures PLAN: 1. She has lost an additional 30 pounds in 1 year however she reports troubles swallowing and eating with epigastric pain. 2. Recommended adjustment of food including smaller bites and chewing thoroughly 3. Her studies were reviewed with her and her family. Will proceed with upper endoscopy with dilation. 4. Also recommend neurosurgical or neurological evaluation for brain tumors and recurrent syncopal episodes Objective - Vital Signs Vital signs: Vital Signs Temp 97.6 F 04/19/19 16:37 Pulse 71 04/19/19 16:37 Resp BP 128/82 04/19/19 16:37 Pulse Ox Intake & Output 04/18/19 04/19/19 04/19/19 18:59 06:59 18:59 Weight 161.932 kg
== END ==
CPT/HCPCS: 99211

== ENCOUNTER 2019-10-25 16:27 | Inpatient (IN) | payer MEDICARE ==
--- NOTE | 2019-10-25 18:53 | ED ---
General Adult HPI - General Chief complaint: Abdominal Pain Stated complaint: Abd pain-post op Time Seen by Provider: 10/25/19 18:18 Source: patient, family Mode of arrival: wheelchair Limitations: no limitations - History of Present Illness Initial comments: Patient is a 34-year-old female with history of morbid obesity presenting to the emergency department with a chief complaint of sore throat. States that she saw who suggested that she come to the ED in order to be admitted to the hospital for further management. Patient states that Dr. Palomino will perform an upper scope tomorrow. Patient does report dysphagia but denies dr moreno or changes to the voice. Denies any chest pain or shortness of breath at this time. - Related Data Home Medications Medication Instructions Recorded Confirmed Nystatin 1 applic TOPICAL DAILY PRN 02/04/17 04/19/19 buPROPion HCL [Wellbutrin SR] 150 mg PO HS 08/05/17 04/19/19 Adult Chewable Vitamins 2 tab PO DAILY 09/22/17 04/19/19 Ergocalciferol (Vitamin D2) 50,000 unit PO MO 10/19/18 04/19/19 [Vitamin D2] Ergocalciferol [Vitamin D2 50,000 unit PO WEEKLY 12/21/18 04/19/19 (DRISDOL)] Gabapentin [Neurontin] 800 mg PO TID 04/19/19 04/19/19 HYDROcodone/APAP 7.5-325MG [[place] 1 tab PO TID 04/19/19 04/19/19 7.5-325] Previous Rx's Medication Instructions Recorded hydrOXYzine HCL [Atarax] 25 mg PO TID PRN #30 tab 04/27/18 Docusate [Colace] 100 mg PO DAILY #20 capsule 10/21/18 Polyethylene Glycol 3350 [Miralax] 17 gm PO DAILY #256 gm 10/21/18 Allergies Allergy/AdvReac Type Severity Reaction Status Date / Time ibuprofen [From Motrin] Allergy Anaphylaxis Verified 10/25/19 16:44 iron Allergy Anaphylaxis Verified 10/25/19 16:44 to Venofer Review of Systems ROS Statement: Those systems with pertinent positive or pertinent negative responses have been documented in the HPI. ROS Other: All systems not noted in ROS Statement are negative. Past Medical History Past Medical History: Asthma, GERD/Reflux, Osteoarthritis (OA) Additional Past Medical History / Comment(s): "having difficulty swallowing and vomiting",Abdominal pain, back pain, hiatal hernia, anemia. 05/12/17: Dr. Ambrocio reports that the patient has a history of having periods of unresponsiveness as well as a history of a positive vaso-vagal response. History of Any Multi-Drug Resistant Organisms: None Reported Past Surgical History: Bariatric Surgery, Section, Cholecystectomy, Hernia Repair Additional Past Surgical History / Comment(s): 10/05/16 EGD, sleeve gastrectomy 07/25/13, lysis of adhesions abd, hiatel hernia, EGD 05/11/17.gastric bypass 08-09-17 surgery to remove lesions Past Anesthesia/Blood Transfusion Reactions: No Reported Reaction Additional Past Anesthesia/Blood Transfusion Reaction / Comment(s): Difficult IV start. Past Psychological History: Anxiety, Depression Smoking Status: Former smoker Past Alcohol Use History: None Reported Past Drug Use History: None Reported - Past Family History Mother Family Medical History: Renal Disease Additional Family Medical History / Comment(s): Mother of kidney disease. General Exam Limitations: no limitations General appearance: alert, in no apparent distress, obese (Morbid) Head exam: Present: atraumatic, normocephalic, normal inspection Eye exam: Present: normal appearance Pupils: Present: normal accommodation ENT exam: Present: normal exam, mucous membranes moist. Absent: normal oropha rynx (Mild tonsillar erythema no enlargement or exudates. No signs of peritonsillar abscess. No oral lesions. Uvula midline.) Neck exam: Present: normal inspection, full ROM. Absent: lymphadenopathy Respiratory exam: Present: normal lung sounds bilaterally. Absent: respiratory distress, wheezes, rales Cardiovascular Exam: Present: normal rhythm, tachycardia, normal heart sounds Extremities exam: Present: normal inspection Back exam: Present: normal inspection Neurological exam: Present: alert, oriented X3 Psychiatric exam: Present: normal affect, normal mood Skin exam: Present: warm, intact, normal color Course Vital Signs 10/25/19 16:40 Temperature 100.3 F H Pulse Rate 112 H Respiratory 22 Rate Blood Pressure 112/70 O2 Sat by Pulse 98 Oximetry Medical Decision Making - Medical Decision Making Patient a 34-year-old female with history of morbid obesity presenting to emergency Department with a chief complaint of dysphagia. Patient saw Dr. Palomino today in this hospital who suggested the patient go to the ED in order to be admitted. Dr. Palomino were performed an upper scope tomorrow. On exam patient is not in respiratory distress. No drooling or changes in voice. No signs of peritonsillar abscess. Patient will be admitted. Case discussed with . Admitting physician is Dr. Palomino. Nothing by mouth after midnight. - Lab Data Result diagrams: 10/25/19 18:58 Lab Results 10/25/19 Range/Units 18:58 WBC 5.0 (3.8-10.6) k/uL RBC 4.71 (3.80-5.40) m/uL Hgb 12.8 (11.4-16.0) gm/dL Hct 39.5 (34.0-46.0) % MCV 84.0 (80.0-100.0) fL MCH 27.2 (25.0-35.0) pg MCHC 32.4 (31.0-37.0) g/dL RDW 14.3 (11.5-15.5) % Plt Count 178 (150-450) k/uL Neutrophils % 81 % Lymphocytes % 12 % Monocytes % 4 % Eosinophils % 1 % Basophils % 0 % Neutrophils # 4.0 (1.3-7.7) k/uL Lymphocytes # 0.6 L (1.0-4.8) k/uL Monocytes # 0.2 (0-1.0) k/uL Eosinophils # 0.1 (0-0.7) k/uL Basophils # 0.0 (0-0.2) k/uL Disposition Clinical Impression: Dysphagia Disposition: ADMITTED IP TO THIS [facility] Condition: Stable Additional Instructions: Patient will be admitted Is patient prescribed a controlled substance at d/c from ED?: No Referrals: Gabriele Meza DO [Primary Care Provider] - 1-2 days Time of Disposition: 19:16
[2019-10-25 19:07] LABS: Basophils % (A) 0 %; Eosinophils # (A) 0.1 k/uL (0-0.7); Eosinophils % (A) 1 %; HCT 39.5 % (34.0-46.0); HGB 12.8 gm/dL (11.4-16.0); Lymphocytes # (A) 0.6 k/uL (1.0-4.8); Lymphocytes % (A) 12 %; MCH 27.2 pg (25.0-35.0); MCHC 32.4 g/dL (31.0-37.0); Mean Platelet Volume 6.6; Monocytes # (A) 0.2 k/uL (0-1.0); Monocytes % (A) 4 %; Neutrophils % (A) 81 %; Platelet Count 178 k/uL (150-450); RBC 4.71 m/uL (3.80-5.40); RDW 14.3 % (11.5-15.5)
[2019-10-25] MEDS ORDERED: ACETAMINOPHEN TAB 325 MG TAB PO PRN (19:12)
[2019-10-25] MEDS ORDERED: NALOXONE 0.4 MG/ML 1 ML VIAL IV PRN (19:12)
[2019-10-25] MEDS ORDERED: HYDROmorphone 1 MG/ML 1 ML SYRINGE IVP PRN (19:12)
[2019-10-25] MEDS ORDERED: LORazepam 2 MG/ML INJ IV PRN (19:12)
[2019-10-25 19:21] LABS: ALT 27 U/L (4-34); AST 28 U/L (14-36); African American GFR (CKD) >90 (>60 ml/min/1.73 sqM); Albumin 4.2 g/dL (3.5-5.0); Alkaline Phosphatase 103 U/L (38-126); Anion Gap 8 mmol/L; Blood Urea Nitrogen 9 mg/dL (7-17); Calcium 9.1 mg/dL (8.4-10.2); Carbon Dioxide 27 mmol/L (22-30); Chloride 102 mmol/L (98-107); Glucose 103 mg/dL (74-99); Non-African American GFR(CKD) >90 (>60 ml/min/1.73 sqM); Potassium 3.9 mmol/L (3.5-5.1); Sodium 137 mmol/L (137-145); Total Bilirubin 0.7 mg/dL (0.2-1.3); Total Protein 7.5 g/dL (6.3-8.2)
[2019-10-25] MEDS ORDERED: ONDANSETRON 4 MG/2 ML VIAL IVP PRN (21:10)
[2019-10-25] MEDS ORDERED: SODIUM CHLORIDE 0.9% 2,000 ML IV ONE (21:10)
[2019-10-25] MEDS: HYDROmorphone 0.5 MG/0.5 ML SYRINGE IVP PRN (21:25)
[2019-10-25] MEDS: SODIUM CHLORIDE 0.9% 1,000 ML IV SCH ×2 (21:29→22:21)
[2019-10-25] MEDS ORDERED: SUMAtriptan SUCCINATE 6 MG/0.5 ML VIAL SQ ONE (22:00)
--- NOTE | 2019-10-25 22:57 | P.GSHP ---
History of Present Illness H&P Date: 10/25/19 DATE OF SERVICE: 10/25/2019 CHIEF COMPLAINT: Status post gastric bypass. HISTORY OF PRESENT ILLNESS: Lety De La Rosa is a 34-year-old female who is status post sleeve to gastric bypass, 08/09/2017. She is over 2 years out. She is brought in by her parents who reports recent hospitalization for mental health secondary psychosis and suicidal ideation. In the last 2 weeks Patient did present to the bariatric center belligerent and reclusive regarding overall history. History also obtained by her family. Patient upset that "my throat is closed." She reports difficulty swallowing pills for last 1-2 weeks. She also reports intractable nausea and vomiting. Since her last visit the bariatric center over 6 months ago, she has lost 60 pounds. She reports severe dysphagia including inability to swallow her pills for her depression and mood as well as epigastric abdominal pain. At her height of 5 feet 10.25 inches, her initial weight was 499 pounds. Today she comes in weighing 296 pounds from 356 pounds, 6 months ago. She has lost 60 pounds in 6 months. Her ideal body weight is 173 pounds. She has maintained 203 pound weight loss, lifetime. Body mass index is reduced from 71.2 down to 42.6. PAST MEDICAL HISTORY: 1. Morbid obesity, BMI 71.2, initial 2. Iron deficiency anemia. 3. Hypertensive heart disease. 4. Gastroesophageal reflux disease. 5. Depression. 6. Asthma. 7. Chronic pain. 8. Diaphragmatic hiatal hernia. PAST SURGICAL HISTORY: 1. Sleeve gastrectomy in July 2013. 2. section. 3. Cholecystectomy. 4. Upper endoscopy. 5. Hiatal hernia repair, 05/2017 6. Gastric bypass, 08/2017 7. Lysis of adhesions, 2018 MEDICATIONS: Home Medications Medication Instructions Recorded Confirmed Nystatin 1 applic TOPICAL DAILY PRN 02/04/17 04/19/19 buPROPion HCL [Wellbutrin SR] 150 mg PO HS 08/05/17 04/19/19 Adult Chewable Vitamins 2 tab PO DAILY 09/22/17 04/19/19 Ergocalciferol (Vitamin D2) 50,000 unit PO MO 10/19/18 04/19/19 [Vitamin D2] Ergocalciferol [Vitamin D2 50,000 unit PO WEEKLY 12/21/18 04/19/19 (DRISDOL)] Gabapentin [Neurontin] 800 mg PO TID 04/19/19 04/19/19 HYDROcodone/APAP 7.5-325MG [[place] 1 tab PO TID 04/19/19 04/19/19 7.5-325] Previous Rx's Medication Instructions Recorded hydrOXYzine HCL [Atarax] 25 mg PO TID PRN #30 tab 04/27/18 Docusate [Colace] 100 mg PO DAILY #20 capsule 10/21/18 Polyethylene Glycol 3350 [Miralax] 17 gm PO DAILY #256 gm 10/21/18 ALLERGIES: IBUPROFEN, VENOFER - Anaphylaxis SOCIAL HISTORY: Lifelong nontobacco user. FAMILY HISTORY: Pertinent for diabetes including morbid obesity. REVIEW OF SYSTEMS: CONSTITUTIONAL: [place] body weight is 173 pounds. Highest weight of 499 pounds. BMI 71.9 initial GASTROINTESTINAL: Gastroesophageal reflux disease present. Has dysphagia PSYCH: History of depression. Recent suicidal ideation including psychosis requiring hospitalization 2 weeks ago for mental health HEENT: Has troubles with hearing. Wears glasses. drainage. Past reports of active dysphagia to solid foods. RESPIRATORY: Has prior history of obstructive sleep apnea, improved. No pneumonia. CARDIOVASCULAR: History of hypertension improved. No recent palpitations. MUSCULOSKELETAL: Diffuse osteoarthritis especially of the knees and hips, improved. NEURO: New seizure disorder and syncopal episodes HEMATOLOGIC: Denies any DVTs. No easy bruising. Has chronic anemia. SKIN: Has panniculitis. No skin cancer. PHYSICAL EXAM: VITAL SIGNS: 5 feet 10.25 inches, 296 pounds. Body mass index is 42.4 GENERAL: Well-developed, pleasant female in no acute distress. HEENT: No scleral icterus. Extraocular movements grossly intact. No nasal drainage. NECK: Supple without lymphadenopathy. CHEST: Nonlabored respirations, equal bilateral excursions. CARDIOVASCULAR: Palpable 2+ pulses. Regular rate. Regular rhythm. ABDOMEN: Mild tenderness along the epigastrium. No peritonitis. NEURO: No focal or lateralizing signs. Cranial nerves II through XII grossly within normal limits. PSYCH: Appropriate affect. Alert and oriented to person, place, and time. SKIN: Good skin turgor. Well perfused. ASSESSMENT: 1. Esophageal obstruction 2. Recent psychosis and suicidal ideation 3. Intractable nausea and vomiting 4. Morbid obesity due to excess calories. 5. Body mass index reduced from 71.2 to 42.6 6. 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 7. Epigastric abdominal pain 8. History of brain tumors of the occiput 9. Chronic syncooal episodes 10. History gastrojejunal stricture 11. Dysphagia 12. Seizures PLAN: 1. Recommend IV fluid hydration issue severe intractable nausea and vomiting 2. Recommend EGD with dilation for esophageal obstruction. 3. For history of recent psychosis and suicidal ideation, medicine and psych consult pending 4. Inpatient hospitalization greater than 2 nights anticipated Past Medical History Past Medical History: Asthma, GERD/Reflux, Osteoarthritis (OA) Additional Past Medical History / Comment(s): "having difficulty swallowing and vomiting",Abdominal pain, back pain, hiatal hernia, anemia. 05/12/17: Dr. Ambrocio reports that the patient has a history of having periods of unrespo nsiveness as well as a history of a positive vaso-vagal response. History of Any Multi-Drug Resistant Organisms: None Reported Past Surgical History: Bariatric Surgery, Section, Cholecystectomy, Hernia Repair Additional Past Surgical History / Comment(s): 10/05/16 EGD, sleeve gastrectomy 07/25/13, lysis of adhesions abd, hiatel hernia, EGD 05/11/17.gastric bypass 08-09-17 surgery to remove lesions Past Anesthesia/Blood Transfusion Reactions: No Reported Reaction Additional Past Anesthesia/Blood Transfusion Reaction / Comment(s): Difficult IV start. Past Psychological History: Anxiety, Bipolar, Depression Additional Psychological History / Comment(s): . Smoking Status: Former smoker Past Alcohol Use History: None Reported Additional Past Alcohol Use History / Comment(s): Pt states she started smoking as a teen and only smokes on days where her stress level is high. Past Drug Use History: None Reported Additional Drug Use History / Comment(s): . - Past Family History Mother Family Medical History: Renal Disease Additional Family Medical History / Comment(s): Mother of kidney disease. Medications and Allergies Home Medications Medication Instructions Recorded Confirmed Type Gabapentin [Neurontin] 800 mg PO TID 04/19/19 10/25/19 History HYDROcodone/APAP 7.5-325MG [[place] 1 tab PO TID 04/19/19 10/25/19 History 7.5-325] Albuterol Nebulized [Ventolin 2.5 mg INHALATION RT-QID PRN 10/25/19 10/25/19 History Nebulized] OXcarbazepine [Trileptal] 300 mg PO BID 10/25/19 10/25/19 History Venlafaxine HCl [Effexor XR] 75 mg PO DAILY 10/25/19 10/25/19 History busPIRone HCl [Buspar] 5 mg PO BID 10/25/19 10/25/19 History risperiDONE [RisperDAL] 0.5 mg PO BID 10/25/19 10/25/19 History Allergies Allergy/AdvReac Type Severity Reaction Status Date / Time acetaminophen [From Tylenol] Allergy Anaphylaxis Verified 10/25/19 21:30 ibuprofen [From Motrin] Allergy Anaphylaxis Verified 10/25/19 20:08 iron Allergy Anaphylaxis Verified 10/25/19 20:08 to Venofer tramadol Allergy Anaphylaxis Verified 10/25/19 21:30 Surgical - Exam Vital Signs Temp Pulse Resp BP Pulse Ox 100.3 F H 112 H 22 112/70 98 10/25/19 16:40 10/25/19 16:40 10/25/19 16:40 10/25/19 16:40 10/25/19 16:40 Results - Labs 10/25/19 18:58 10/25/19 18:58 Abnormal Lab Results - Last 24 Hours (Table) 10/25/19 10/25/19 Range/Units 18:58 18:58 Lymphocytes # 0.6 L (1.0-4.8) k/uL Glucose 103 H (74-99) mg/dL Diabetes panel 10/25/19 Range/Units 18:58 Sodium 137 (137-145) mmol/L Potassium 3.9 (3.5-5.1) mmol/L Chloride 102 (98-107) mmol/L Carbon Dioxide 27 (22-30) mmol/L BUN 9 (7-17) mg/dL Creatinine 0.60 (0.52-1.04) mg/dL Glucose 103 H (74-99) mg/dL Calcium 9.1 (8.4-10.2) mg/dL AST 28 (14-36) U/L ALT 27 (4-34) U/L Alkaline Phosphatase 103 (38-126) U/L Total Protein 7.5 (6.3-8.2) g/dL Albumin 4.2 (3.5-5.0) g/dL Calcium panel 10/25/19 Range/Units 18:58 Calcium 9.1 (8.4-10.2) mg/dL Albumin 4.2 (3.5-5.0) g/dL Pituitary panel 10/25/19 Range/Units 18:58 Sodium 137 (137-145) mmol/L Potassium 3.9 (3.5-5.1) mmol/L Chloride 102 (98-107) mmol/L Carbon Dioxide 27 (22-30) mmol/L BUN 9 (7-17) mg/dL Creatinine 0.60 (0.52-1.04) mg/dL Glucose 103 H (74-99) mg/dL Calcium 9.1 (8.4-10.2) mg/dL Adrenal panel 10/25/19 Range/Units 18:58 Sodium 137 (137-145) mmol/L Potassium 3.9 (3.5-5.1) mmol/L Chloride 102 (98-107) mmol/L Carbon Dioxide 27 (22-30) mmol/L BUN 9 (7-17) mg/dL Creatinine 0.60 (0.52-1.04) mg/dL Glucose 103 H (74-99) mg/dL Calcium 9.1 (8.4-10.2) mg/dL Total Bilirubin 0.7 (0.2-1.3) mg/dL AST 28 (14-36) U/L ALT 27 (4-34) U/L Alkaline Phosphatase 103 (38-126) U/L Total Protein 7.5 (6.3-8.2) g/dL Albumin 4.2 (3.5-5.0) g/dL Assessment and Plan (1) Esophageal obstruction Current Visit: Yes Status: Acute Code(s): K22.2 - ESOPHAGEAL OBSTRUCTION SNOMED Code(s): 396720121 (2) History of psychosis Current Visit: Yes Status: Acute Code(s): Z86.59 - PERSONAL HISTORY OF OTHER MENTAL AND BEHAVIORAL DISORDERS SNOMED Code(s): 310755479 (3) BMI 40.0-44.9, adult Current Visit: Yes Status: Acute Code(s): Z68.41 - BODY MASS INDEX (BMI) 40.0-44.9, ADULT SNOMED Code(s): 400998188 (4) Dysphagia Current Visit: Yes Status: Acute Code(s): R13.10 - DYSPHAGIA, UNSPECIFIED SNOMED Code(s): 53087519 (5) Morbid obesity Current Visit: No Status: Chronic Code(s): E66.01 - MORBID (SEVERE) OBESITY DUE TO EXCESS CALORIES SNOMED Code(s): 200184861 (6) Noncompliance with diet and medication regimen Current Visit: No Status: Chronic Code(s): Z91.11 - PATIENT'S NONCOMPLIANCE WITH DIETARY REGIMEN; Z91.14 - PATIENT'S OTHER NONCOMPLIANCE WITH MEDICATION REGIMEN SNOMED Code(s): 260334696 (7) Unintentional weight loss Current Visit: Yes Status: Acute Code(s): R63.4 - ABNORMAL WEIGHT LOSS SNOMED Code(s): 414064579
[2019-10-26] MEDS: SODIUM CHLORIDE 0.9% 1,000 ML IV SCH ×3 (00:15→17:01)
[2019-10-26] MEDS: HYDROmorphone 0.5 MG/0.5 ML SYRINGE IVP PRN ×2 (02:12→20:40)
[2019-10-26] MEDS ORDERED: ALBUTEROL NEBULIZED 2.5 MG/3 ML INHALATION PRN (06:15)
[2019-10-26] MEDS ORDERED: METOCLOPRAMIDE 5 MG/ML 2 ML VIAL IVP PRN (07:49)
[2019-10-26] MEDS ORDERED: ACETAMINOPHEN IV (For NPO) 1,000 MG in EMPTY BAG 1 BAG IVPB PRN (07:53)
[2019-10-26] MEDS: risperiDONE 0.5 MG TAB PO SCH ×2 (09:56→20:39)
[2019-10-26] MEDS: busPIRone HCl 5 MG TAB PO SCH ×2 (09:56→20:39)
[2019-10-26] MEDS: OXcarbazepine 300 MG TAB PO SCH ×2 (09:56→20:39)
[2019-10-26] MEDS: GABAPENTIN 400 MG CAP PO SCH ×3 (09:56→20:39)
[2019-10-26] MEDS: VENLAFAXINE HCL ER 75 MG CAP PO SCH (09:56)
--- NOTE | 2019-10-26 14:07 | P.CONS ---
History of Present Illness - Reason for Consult Dysphagia, headache - History of Present Illness 34-year-old female who with the some psychiatric issues came in with complaints of dysphagia when questioned about patient complains about odynophagia as well patient doesn't have any oral thrush symptoms has been going on for about 3 months predominantly to solids no problems with liquids. Patient is admitted to general surgery service and will undergo upper GI endoscopy. Patient was having headaches denied any history of migraine but improved with sumatriptan will use Tylenol for headache. Patient denied any fever chills nausea vomiting abdominal pain. Review of Systems REVIEW OF SYSTEMS: CONSTITUTIONAL: No fever, no malaise, no fatigue. HEENT: No recent visual problems or hearing problems. Denied any sore throat. CARDIOVASCULAR: No chest pain, orthopnea, PND, no palpitations, no syncope. PULMONARY: No shortness of breath, no cough, no hemoptysis. GASTROINTESTINAL: As mentioned in HPI NEUROLOGICAL: No headaches, no weakness, no numbness. HEMATOLOGICAL: Denies any bleeding or petechiae. GENITOURINARY: Denies any burning micturition, frequency, or urgency. MUSCULOSKELETAL/RHEUMATOLOGICAL: Denies any joint pain, swelling, or any muscle pain. ENDOCRINE: Denies any polyuria or polydipsia. The rest of the 14-point review of systems is negative. Past Medical History Past Medical History: Asthma, GERD/Reflux, Osteoarthritis (OA) Additional Past Medical History / Comment(s): "having difficulty swallowing and vomiting",Abdominal pain, back pain, hiatal hernia, anemia. 05/12/17: Dr. Ambrocio reports that the patient has a history of having periods of unresponsiveness as well as a history of a positive vaso-vagal response. History of Any Multi-Drug Resistant Organisms: None Reported Past Surgical History: Bariatric Surgery, Section, Cholecystectomy, Hernia Repair Additional Past Surgical History / Comment(s): 10/05/16 EGD, sleeve gastrectomy 07/25/13, lysis of adhesions abd, hiatel hernia, EGD 05/11/17.gastric bypass 08-09-17 surgery to remove lesions Past Anesthesia/Blood Transfusion Reactions: No Reported Reaction Additional Past Anesthesia/Blood Transfusion Reaction / Comm: Difficult IV start. Past Psychological History: Anxiety, Bipolar, Depression Additional Psychological History / Comment(s): . Smoking Status: Former smoker Past Alcohol Use History: None Reported Additional Past Alcohol Use History / Comment(s): Pt states she started smoking as a teen and only smokes on days where her stress level is high. Past Drug Use History: None Reported Additional Drug Use History / Comment(s): . - Past Family History Mother Family Medical History: Renal Disease Additional Family Medical History / Comment(s): Mother of kidney disease. Medications and Allergies Home Medications Medication Instructions Recorded Confirmed Type Gabapentin [Neurontin] 800 mg PO TID 04/19/19 10/25/19 History HYDROcodone/APAP 7.5-325MG [[place] 1 tab PO TID 04/19/19 10/25/19 History 7.5-325] Albuterol Nebulized [Ventolin 2.5 mg INHALATION RT-QID PRN 10/25/19 10/25/19 History Nebulized] OXcarbazepine [Trileptal] 300 mg PO BID 10/25/19 10/25/19 History Venlafaxine HCl [Effexor XR] 75 mg PO DAILY 10/25/19 10/25/19 History busPIRone HCl [Buspar] 5 mg PO BID 10/25/19 10/25/19 History risperiDONE [RisperDAL] 0.5 mg PO BID 10/25/19 10/25/19 History Allergies Allergy/AdvReac Type Severity Reaction Status Date / Time ibuprofen [From Motrin] Allergy Anaphylaxis Verified 10/25/19 20:08 iron Allergy Anaphylaxis Verified 10/25/19 20:08 to Venofer tramadol Allergy Anaphylaxis Verified 10/25/19 21:30 Physical Exam Vitals: Vital Signs Temp Pulse Pulse Resp BP BP Pulse Ox 10/26/19 08:00 99.2 F 81 18 108/69 94 L 10/26/19 04:23 99.4 F 76 18 113/68 93 L 10/26/19 04:00 99.4 F 76 18 113/68 93 L 10/26/19 00:00 99.6 F 96 18 121/59 93 L 10/25/19 20:04 98.9 F 101 H 20 135/73 96 10/25/19 20:00 99.2 F 104 H 17 96/92 98 10/25/19 16:40 100.3 F H 112 H 22 112/70 98 Intake and Output 02/19/20 02/20/20 02/20/20 22:59 06:59 14:59 Intake Total 1999 Balance 1999 Intake: Intake, IV Titration 2000 Amount Sodium Chloride 0.9% 2, 1999 000 ml @ 999 mls/hr IV . Q2H1M ONE Rx#:[id number] Other: Voiding Method Toilet Toilet Toilet # Voids 2 Weight 141.974 kg 134.7 kg PHYSICAL EXAMINATION: GENERAL: The patient is alert and oriented x3, not in any acute distress. Well developed, well nourished. HEENT: Pupils are round and equally reacting to light. EOMI. No scleral icterus. No conjunctival pallor. Normocephalic, atraumatic. No pharyngeal erythema. No thyromegaly. CARDIOVASCULAR: S1 and S2 present. No murmurs, rubs, or gallops. PULMONARY: Chest is clear to auscultation, no wheezing or crackles. ABDOMEN: Soft, nontender, nondistended, normoactive bowel sounds. No palpable organomegaly. MUSCULOSKELETAL: No joint swelling or deformity. EXTREMITIES: No cyanosis, clubbing, or pedal edema. NEUROLOGICAL: Gross neurological examination did not reveal any focal deficits. SKIN: No rashes. Results CBC & Chem 7: 10/25/19 18:58 10/25/19 18:58 Labs: Abnormal Lab Results - Last 24 Hours (Table) 10/25/19 10/25/19 Range/Units 18:58 18:58 Lymphocytes # 0.6 L (1.0-4.8) k/uL Glucose 103 H (74-99) mg/dL Assessment and Plan Plan: -Dysphagia: Because of the poor history is not clear considering odynophagia patient may have fungal esophagitis and esophagitis secondary to acid reflux will wait for the upper GI endoscopy. Patient will be continued on Protonix. -Headache I cannot rule out migraine will use Tylenol on as-needed basis patient received sumatriptan with improvement in her symptoms -Obesity -Asthma without any acute exacerbation -Bipolar disorder patient was resumed on her home medications because of intera ctions with the risperidone and Effexor I cannot use Reglan or Compazine. -Gastroesophageal reflux disease
[2019-10-26] MEDS ORDERED: LIDOCAINE 1% INJ 10MG/ML (20 ML MDV) ONE (14:46)
[2019-10-26] MEDS ORDERED: MIDAZOLAM 2 MG/2 ML VIAL ONE (14:46)
[2019-10-26] MEDS ORDERED: PROPOFOL 10 MG/ML 20 ML VIAL IV ONE (14:46)
[2019-10-26] MEDS ORDERED: fentaNYL (PF) 50 MCG/ML 2 ML AMP ONE (14:46)
[2019-10-26] MEDS ORDERED: IV FLUID CONTINUATION 1,000 ML IV ONE (15:04)
--- NOTE | 2019-10-26 15:16 | P.OP ---
Date of Procedure: 10/26/19 Description of Procedure: PREOPERATIVE DIAGNOSIS: Dysphagia. Nausea with vomiting. History of gastrojejunal strictures Esophageal obstruction POSTOPERATIVE DIAGNOSIS: Dysphagia. Nausea with vomiting. History of gastrojejunal strictures Esophageal obstruction Hypertensive upper esophageal sphincter Tonsillar hypertrophy Distal esophageal spasm OPERATION: Esophagogastrojejunoscopy with balloon dilatation, 20 mm for distal esophagus Esophagogastrojejunoscopy with rigid dilator, 54-[place] for upper esophageal hypertension SURGEON: Natalia Ambrocio MD ANESTHESIA: MAC. INDICATIONS: The patient is a 34-year-old female who presents with a history of dysphagia, including nausea and vomiting. Benefits and risks of the procedure were described. Informed consent was obtained. DESCRIPTION: The patient was brought into the endoscopy suite and laid in the left lateral decubitus position. After a timeout was confirmed, the procedure was initiated. An Olympus gastroscope was passed along the posterior oropharynx down to the distal esophagus where the squamocolumnar junction was unremarkable. The gastric pouch was entered. Hypertrophic tonsils were identified. Additionally, hypertensive upper esophageal sphincter was also found. A rigid dilator was prepared using 54-[place] rigid dilator. A guidewire was placed through the scope. The scope was exchanged for a 54-[place] rigid dilator left in for 2 minutes them removed. To address distal esophageal spasms also identified, a [employer] balloon dilator was placed through the scope. Final insufflation up to 20 mm was performed with a total of 2 minutes. The scope was advanced up to 60 cm from the incisors into the Savi limb. The mucosa of the gastrojejunal anastomosis was intact. No chronic gastrojejunal marginal ulcer was encountered. No full- thickness injury was encountered. The GI tract was desufflated. The patient tolerated the procedure well. FINDINGS: Squamocolumnar junction unremarkable at 40 cm. No erosive esophagitis identified Hypertensive upper esophageal sphincter addressed using rigid dilator, 54-[place] Distal esophageal spasm or just using balloon dilator, 20 mm No chronic gastrojejunal ulceration encountered. Gastric pouch 6 cm RECOMMENDATIONS: 1. Liquid diet. 2. Upper endoscopy as needed. 3. Recommend assessment with ENT for hypertrophic symptomatic tonsils Plan - Discharge Summary Discharge Rx Participant: No New Discharge Prescriptions: No Action HYDROcodone/APAP 7.5-325MG [[place] 7.5-325] 1 tab PO TID Gabapentin [Neurontin] 800 mg PO TID risperiDONE [RisperDAL] 0.5 mg PO BID Albuterol Nebulized [Ventolin Nebulized] 2.5 mg INHALATION RT-QID PRN PRN Reason: Shortness Of Breath OXcarbazepine [Trileptal] 300 mg PO BID busPIRone HCl [Buspar] 5 mg PO BID Venlafaxine HCl [Effexor XR] 75 mg PO DAILY Discharge Medication List Gabapentin [Neurontin] 800 mg PO TID 04/19/19 [History] HYDROcodone/APAP 7.5-325MG [[place] 7.5-325] 1 tab PO TID 04/19/19 [History] Albuterol Nebulized [Ventolin Nebulized] 2.5 mg INHALATION RT-QID PRN 10/25/19 [History] OXcarbazepine [Trileptal] 300 mg PO BID 10/25/19 [History] Venlafaxine HCl [Effexor XR] 75 mg PO DAILY 10/25/19 [History] busPIRone HCl [Buspar] 5 mg PO BID 10/25/19 [History] risperiDONE [RisperDAL] 0.5 mg PO BID 10/25/19 [History] Follow up Appointment(s)/Referral(s): Gabriele Meza DO [Primary Care Provider] - 1-2 days Activity/Diet/Wound Care/Special Instructions: Patient will be admitted
[2019-10-26] MEDS: BENZOCAINE/MENTHOL LOZENG 1 EACH LOZENGE MUCOUS MEM PRN (20:39)
[2019-10-27] MEDS: SODIUM CHLORIDE 0.9% 1,000 ML IV SCH (04:03)
[2019-10-27] MEDS: HYDROmorphone 0.5 MG/0.5 ML SYRINGE IVP PRN (04:03)
[2019-10-27 04:55] VITALS: PULSE 99
[2019-10-27 07:52] VITALS: BP 136/77; RESP 18; TEMP 98.3
[2019-10-27] MEDS: VENLAFAXINE HCL ER 75 MG CAP PO SCH (09:13)
[2019-10-27] MEDS: BENZOCAINE/MENTHOL LOZENG 1 EACH LOZENGE MUCOUS MEM PRN (09:13)
[2019-10-27] MEDS: risperiDONE 0.5 MG TAB PO SCH (09:13)
[2019-10-27] MEDS: GABAPENTIN 400 MG CAP PO SCH (09:13)
[2019-10-27] MEDS: busPIRone HCl 5 MG TAB PO SCH (09:13)
[2019-10-27] MEDS: OXcarbazepine 300 MG TAB PO SCH (09:14)
--- NOTE | 2019-10-27 13:13 | P.DS ---
<Monica Lacy Kera - Last Filed: 10/27/19 13:10> Providers Expected date of discharge: 10/27/19 Hospital Course: Lety is a 34-year-old female who is status post sleeve to gastric bypass, 08/09/2017. She is over 2 years out. She is brought in by her parents who reports recent hospitalization for mental health secondary psychosis and suicidal ideation. In the last 2 weeks Patient did present to the bariatric center belligerent and reclusive regarding overall history. History also obtained by her family. Patient upset that "my throat is closed." She reports difficulty swallowing pills for last 1-2 weeks. She also reports intractable nausea and vomiting. Since her last visit the bariatric center over 6 months ago, she has lost 60 pounds. She reports severe dysphagia including inability to swallow her pills for her depression and mood as well as epigastric abdominal pain. Patient underwent EGD with balloon dilatation with Dr. Ambrocio on 10/26/2019. Patient is doing well after her procedure. She is tolerating liquid diet. Denies nausea or vomiting. Patient was also found to have hypertrophic symptomatic tonsils and was advised to see ENT outpatient. Patient given the name of a few ENT physicians to choose from. She is stable for discharge home today per Dr. Ambrocio. Please see EMR for further hospital course details. Discharge diagnosis 1. Esophageal obstruction 2. Recent psychosis and suicidal ideation 3. Intractable nausea and vomiting 4. Morbid obesity due to excess calories. 5. Body mass index reduced from 71.2 to 42.6 6. 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 7. Epigastric abdominal pain 8. History of brain tumors of the occiput 9. Chronic syncooal episodes 10. History gastrojejunal stricture 11. Dysphagia 12. Seizures Nurse practitioner note has been reviewed by physician. Signing provider agrees with the documented findings, assessment, and plan of care. Patient Condition at Discharge: Stable Plan - Discharge Summary Discharge Rx Participant: No New Discharge Prescriptions: No Action HYDROcodone/APAP 7.5-325MG [[place] 7.5-325] 1 tab PO TID Gabapentin [Neurontin] 800 mg PO TID risperiDONE [RisperDAL] 0.5 mg PO BID Albuterol Nebulized [Ventolin Nebulized] 2.5 mg INHALATION RT-QID PRN PRN Reason: Shortness Of Breath OXcarbazepine [Trileptal] 300 mg PO BID busPIRone HCl [Buspar] 5 mg PO BID Venlafaxine HCl [Effexor XR] 75 mg PO DAILY Discharge Medication List Gabapentin [Neurontin] 800 mg PO TID 04/19/19 [History] HYDROcodone/APAP 7.5-325MG [[place] 7.5-325] 1 tab PO TID 04/19/19 [History] Albuterol Nebulized [Ventolin Nebulized] 2.5 mg INHALATION RT-QID PRN 10/25/19 [History] OXcarbazepine [Trileptal] 300 mg PO BID 10/25/19 [History] Venlafaxine HCl [Effexor XR] 75 mg PO DAILY 10/25/19 [History] busPIRone HCl [Buspar] 5 mg PO BID 10/25/19 [History] risperiDONE [RisperDAL] 0.5 mg PO BID 10/25/19 [History] Follow up Appointment(s)/Referral(s): Gabriele Meza DO [Primary Care Provider] - 1-2 days Xiang Damon DO [Doctor of Osteopathic Medicine] - 1 Week Pascual Garsia MD [STAFF PHYSICIAN] - 1 Week [place], [place] [NON-STAFF] - 11/01/19 3:00 pm Loc Waite MD [STAFF PHYSICIAN] - 1 Week Patient Instructions/Handouts: Esophageal Dilation (DC) Activity/Diet/Wound Care/Special Instructions: PATIENT NEEDS AN APPOINTMENT WITH ENT OUTPATIENT FOR EVALUATION OF TONSILS Discharge Disposition: HOME SELF-CARE <Natalia Ambrocio - Last Filed: 10/27/19 17:50> Providers Date of admission: 10/27/19 09:35 Attending physician: Natalia Ambrocio Consults: 10/25/19 21:11 Consult Physician Routine Consulting Provider: Lynnette Peacock Consult Reason/Comments: Medical management Do you want consulting provider notified?: Yes Primary care physician: Gabriele Meza DO - Discharge Diagnosis(es) (1) Esophageal obstruction Status: Acute (2) History of psychosis Status: Acute (3) BMI 40.0-44.9, adult Status: Acute (4) Dysphagia Status: Acute (5) Morbid obesity Status: Chronic (6) Noncompliance with diet and medication regimen Status: Chronic (7) Unintentional weight loss Status: Acute
--- NOTE | 2019-10-27 14:35 | P.PN ---
Subjective Patient was admitted for dysphagia patient underwent upper GI endoscopy found to have distal esophageal spasm underwent dilatation procedure and the patient is clinically doing well and is being advanced and patient is being discharged today. Patient was having headache on admission can be migraine but the improved now after dose of sumatriptan Constitutional: Denied any fatigue denied any fever. Cardio vascular: denied any chest pain, palpitations Gastrointestinal denied any nausea vomiting Pulmonary: Denied any shortness of breath cough Neurologic denied any new focal deficits All inpatient medications were reviewed and appropriate changes in these medications as dictated in the interval history and assessment and plan. Objective - Vital Signs Vital signs: Vital Signs Temp 98.3 F 10/27/19 07:30 Pulse 99 10/27/19 04:00 Resp 18 10/27/19 07:30 BP 136/77 10/27/19 07:30 Pulse Ox 95 10/27/19 07:30 Intake & Output 10/26/19 10/27/19 10/27/19 18:59 06:59 18:59 Intake Total 100 200 440 Balance 100 200 440 Intake: IV 100 Intake, IV Titration 200 Amount Sodium Chloride 0.9% 1, 200 000 ml @ 100 mls/hr IV . Q10H [facility] Rx#:[id number] Oral 240 Other 200 Other: Voiding Method Toilet Toilet Toilet # Voids 1 - Exam PHYSICAL EXAMINATION: GENERAL: The patient is alert and oriented x3, not in any acute distress. Well developed, well nourished. HEENT: Pupils are round and equally reacting to light. EOMI. No scleral icterus. No conjunctival pallor. Normocephalic, atraumatic. No pharyngeal erythema. No thyromegaly. CARDIOVASCULAR: S1 and S2 present. No murmurs, rubs, or gallops. PULMONARY: Chest is clear to auscultation, no wheezing or crackles. ABDOMEN: Soft, nontender, nondistended, normoactive bowel sounds. No palpable or ganomegaly. MUSCULOSKELETAL: No joint swelling or deformity. EXTREMITIES: No cyanosis, clubbing, or pedal edema. NEUROLOGICAL: Gross neurological examination did not reveal any focal deficits. SKIN: No rashes. - Labs CBC & Chem 7: 10/25/19 18:58 10/25/19 18:58 Assessment and Plan Plan: -Dysphagia: Secondary to distally for esophageal spasm patient had dilatation of the lower esophageal sphincter. -Headache I cannot rule out migraine will use Tylenol on as-needed basis patient received sumatriptan with improvement in her symptoms -Obesity -Asthma without any acute exacerbation -Bipolar disorder patient will resume on her home medications. -Gastroesophageal reflux disease
== END 2019-10-27 12:00 | disposition home or self-care (01) | DRG 392 ==
LOC: EC 16:27 → SUPCPDRO 16:27 → 1SOBS 18:32 → OBSVTOIN 10-27 09:35
PROVIDERS: ADMIT Surgery Plastic and Reconstructive Surgery; ATTEND Surgery Plastic and Reconstructive Surgery
PROC: 0D738ZZ Dilation of Lower Esophagus, Via Natural or Artificial Opening Endoscopic (ICD-10-PCS; principal; 2019-10-26 08:00)
DX: K22.2 Esophageal obstruction (principal); Z68.41 Body mass index [BMI] 40.0-44.9, adult; F29 Unspecified psychosis not due to a substance or known physiological condition; D49.6 Neoplasm of unspecified behavior of brain; I11.9 Hypertensive heart disease without heart failure; K21.9 Gastro-esophageal reflux disease without esophagitis; E66.01 Morbid (severe) obesity due to excess calories; F31.9 Bipolar disorder, unspecified; J45.909 Unspecified asthma, uncomplicated; G89.29 Other chronic pain; G47.33 Obstructive sleep apnea (adult) (pediatric); M17.0 Bilateral primary osteoarthritis of knee; M16.0 Bilateral primary osteoarthritis of hip; G40.909 Epilepsy, unspecified, not intractable, without status epilepticus; D50.9 Iron deficiency anemia, unspecified; M79.3 Panniculitis, unspecified; R11.2 Nausea with vomiting, unspecified; R55 Syncope and collapse; F41.9 Anxiety disorder, unspecified; F17.200 Nicotine dependence, unspecified, uncomplicated; J35.1 Hypertrophy of tonsils; K22.4 Dyskinesia of esophagus; G43.909 Migraine, unspecified, not intractable, without status migrainosus; Z79.899 Other long term (current) drug therapy; Z91.11 Patient's noncompliance with dietary regimen; Z91.14 Patient's other noncompliance with medication regimen; Z98.84 Bariatric surgery status; Z90.49 Acquired absence of other specified parts of digestive tract; Z98.890 Other specified postprocedural states; Z87.19 Personal history of other diseases of the digestive system; Z88.6 Allergy status to analgesic agent; Z83.3 Family history of diabetes mellitus; Z83.49 Family history of other endocrine, nutritional and metabolic diseases
CPT/HCPCS: 36415; 43249; 80053; 81025; 85025; 99284

== ENCOUNTER → 2019-10-25 | Outpatient (CLI) | payer MEDICARE ==
--- NOTE | 2019-10-25 16:11 | P.PN ---
Subjective Progress Note Date: 10/25/19 She comes in with troubles with her esophagus. She was in the hospital. She reports trouble swallowing pills. PLAN: 1. She has lost moderate weight. 2. Recommends upper scope. 3. Admission for esophageal obstruction
== END ==
LOC: BARWHC3 15:31
PROVIDERS: ATTEND Surgery Plastic and Reconstructive Surgery
DX: Z53.8 Procedure and treatment not carried out for other reasons (principal)

== ENCOUNTER 2020-02-12 16:46 | Emergency (ER) | payer MEDICARE, OTHER ==
[2020-02-12] MEDS ORDERED: SODIUM CHLORIDE 0.9% 1,000 ML IV STA (17:37)
[2020-02-12 18:42] LABS: Basophils # (A) 0.1 k/uL (0-0.2); Basophils % (A) 1 %; Eosinophils # (A) 0.1 k/uL (0-0.7); Eosinophils % (A) 1 %; HCT 45.1 % (34.0-46.0); HGB 14.3 gm/dL (11.4-16.0); Lymphocytes % (A) 33 %; MCH 27.6 pg (25.0-35.0); MCHC 31.6 g/dL (31.0-37.0); MCV 87.1 fL (80.0-100.0); Mean Platelet Volume 6.6; Monocytes # (A) 0.3 k/uL (0-1.0); Monocytes % (A) 4 %; Neutrophils # (A) 5.5 k/uL (1.3-7.7); Neutrophils % (A) 60 %; Platelet Count 216 k/uL (150-450); RBC 5.17 m/uL (3.80-5.40); RDW 14.7 % (11.5-15.5); WBC 9.1 k/uL (3.8-10.6)
--- NOTE | 2020-02-12 18:44 | ED ---
Seizure HPI - General Chief Complaint: Seizure Stated Complaint: seizure, weakness Time Seen by Provider: 02/12/20 17:05 Source: patient Mode of arrival: ambulatory Limitations: no limitations - History of Present Illness Initial Comments: 34 year-old female patient is brought to the emergency department by her boyfriend for evaluation after having seizures today. He reports 2 separate episodes of seizure starting this morning. States that the initial one her eyes were rolling back in her head, having some mild body shaking. States that she was arousable and he was able to give her pills during this episode. States that she then started trying to hit her head off the wall. States that second episode occurred around 145 she was sitting in the middle front of the fan when she started staring off into space, then started having generalized body shaking. States this lasted for a few minutes. He states since the second episode of seizure she has been dragging her left foot. Patient states she feels numb and weak on her left side. She is reporting left sided headache. She didn't had a third seizure episode while doing breathing treatments and they brought her in for further evaluation. Patient's last seizure before today was 2 days ago. Patient takes Neurontin for seizures. Does not see a neurologist. Patient states she has had a stroke in the past and thinks she is having another stroke today. She is unable to relay while deficits from her previous stroke. Patient denies any recent rash, fever, chills, cough, shortness of breath, abdominal pain, nausea, vomiting, diarrhea, constipation, back pain, numbness, tingling, hematuria, dysuria, urinary urgency, urinary frequency, headache, visual changes, or any other complaints. - Related Data Home Medications Medication Instructions Recorded Confirmed Gabapentin [Neurontin] 800 mg PO TID 04/19/19 10/25/19 HYDROcodone/APAP 7.5-325MG [[employer] 1 tab PO TID 04/19/19 10/25/19 7.5-325] Albuterol Nebulized [Ventolin 2.5 mg INHALATION RT-QID PRN 10/25/19 10/25/19 Nebulized] OXcarbazepine [Trileptal] 300 mg PO BID 10/25/19 10/25/19 Venlafaxine HCl [Effexor XR] 75 mg PO DAILY 02/19/20 02/19/20 busPIRone HCl [Buspar] 5 mg PO BID 10/25/19 10/25/19 risperiDONE [RisperDAL] 0.5 mg PO BID 10/25/19 10/25/19 Allergies Allergy/AdvReac Type Severity Reaction Status Date / Time ibuprofen [From Motrin] Allergy Anaphylaxis Verified 02/12/20 16:57 iron Allergy Anaphylaxis Verified 02/12/20 16:57 to Venofer tramadol Allergy Anaphylaxis Verified 02/12/20 16:57 Review of Systems ROS Statement: Those systems with pertinent positive or pertinent negative responses have been documented in the HPI. ROS Other: All systems not noted in ROS Statement are negative. Past Medical History Past Medical History: Asthma, GERD/Reflux, Osteoarthritis (OA), Seizure Disorder Additional Past Medical History / Comment(s): "having difficulty swallowing and vomiting",Abdominal pain, back pain, hiatal hernia, anemia. 05/12/17: Dr. Ambrocio reports that the patient has a history of having periods of unresponsiveness as well as a history of a positive vaso-vagal response. History of Any Multi-Drug Resistant Organisms: None Reported Past Surgical History: Bariatric Surgery, Section, Cholecystectomy, Hernia Repair Additional Past Surgical History / Comment(s): 10/05/16 EGD, sleeve gastrectomy 07/25/13, lysis of adhesions abd, hiatel hernia, EGD 05/11/17.gastric bypass 08-09-17 surgery to remove lesions Past Anesthesia/Blood Transfusion Reactions: No Reported Reaction Additional Past Anesthesia/Blood Transfusion Reaction / Comment(s): Difficult IV start. Past Psychological History: Anxiety, Bipolar, Depression Smoking Status: Former smoker Past Alcohol Use History: None Reported Past Drug Use History: None Reported - Past Family History Mother Family Medical History: Renal Disease Additional Family Medical History / Comment(s): Mother of kidney disease. General Exam Limitations: no limitations General appearance: alert, in no apparent distress, other (This is a well- developed, well-nourished adult female patient in no acute distress. Vital signs upon presentation are temperature 98.2F, pulse 79, respirations 18, blood pressure 136/69, pulse ox 100% on room air) Eye exam: Present: normal appearance, PERRL, EOMI. Absent: scleral icterus, conjunctival injection, nystagmus, periorbital swelling ENT exam: Present: normal exam, normal oropharynx, mucous membranes moist Respiratory exam: Present: normal lung sounds bilaterally. Absent: respiratory distress, wheezes, rales, rhonchi, stridor Cardiovascular Exam: Present: regular rate, normal rhythm, normal heart sounds. Absent: systolic murmur, diastolic murmur, rubs, gallop, clicks GI/Abdominal exam: Present: soft, normal bowel sounds. Absent: distended, tenderness, guarding, rebound, rigid Neurological exam: Present: alert, oriented X3, CN II-XII intact Expanded Patient oriented to: Present: person, place, time Speech: Present: expressive aphasia Cranial nerves: EOM's Intact: Normal, Tongue Deviation: Normal, Nystagmus: Normal Motor strength exam: RUE: 5, LUE: 2/, RLE: 5, LLE: 2 Psychiatric exam: Present: normal affect, normal mood Skin exam: Present: warm, dry, intact, normal color. Absent: rash Course Vital Signs 02/12/20 02/12/20 02/12/20 16:57 20:46 21:34 Temperature 98.2 F 98.0 F Pulse Rate 79 71 74 Respiratory 18 16 18 Rate Blood Pressure 136/69 151/96 132/75 O2 Sat by Pulse 100 100 99 Oximetry Medical Decision Making - Medical Decision Making 34-year old female patient presents to the emergency department today for evaluation after having multiple seizures and experiencing left sided weakness. Physical examination did reveal mild left-sided weakness, shows report having a stroke in the past. Labs reviewed and are unremarkable. CT brain and CT angiography of the brain were negative. Upon reevaluation patient is moving all limbs without difficulty. She is ambulating in the department. She will be discharged home to follow-up with neurology and her primary care physician. Return parameters were discussed in detail. She verbalizes understanding and agrees with this plan. - Lab Data Result diagrams: 02/12/20 18:26 02/12/20 18:22 Lab Results 02/12/20 02/12/20 02/12/20 Range/Units 18:22 18:22 18:26 WBC 9.1 (3.8-10.6) k/uL RBC 5.17 (3.80-5.40) m/uL Hgb 14.3 (11.4-16.0) gm/dL Hct 45.1 (34.0-46.0) % MCV 87.1 (80.0-100.0) fL MCH 27.6 (25.0-35.0) pg MCHC 31.6 (31.0-37.0) g/dL RDW 14.7 (11.5-15.5) % Plt Count 216 (150-450) k/uL Neutrophils % 60 % Lymphocytes % 33 % Monocytes % 4 % Eosinophils % 1 % Basophils % 1 % Neutrophils # 5.5 (1.3-7.7) k/uL Lymphocytes # 3.0 (1.0-4.8) k/uL Monocytes # 0.3 (0-1.0) k/uL Eosinophils # 0.1 (0-0.7) k/uL Basophils # 0.1 (0-0.2) k/uL PT 10.0 (9.0-12.0) sec INR 1.0 (<1.2) APTT 20.6 L (22.0-30.0) sec Sodium 137 (137-145) mmol/L Potassium 4.5 (3.5-5.1) mmol/L Chloride 106 (98-107) mmol/L Carbon Dioxide 24 (22-30) mmol/L Anion Gap 7 mmol/L BUN 12 (7-17) mg/dL Creatinine 0.52 (0.52-1.04) mg/dL Est GFR (CKD-EPI)AfAm >90 (>60 ml/min/1.73 sqM) Est GFR (CKD-EPI)NonAf >90 (>60 ml/min/1.73 sqM) Glucose 106 H (74-99) mg/dL Calcium 8.8 (8.4-10.2) mg/dL Total Bilirubin 0.8 (0.2-1.3) mg/dL AST 28 (14-36) U/L ALT 13 (4-34) U/L Alkaline Phosphatase 87 (38-126) U/L Troponin I (0.000-0.034) ng/mL Total Protein 7.5 (6.3-8.2) g/dL Albumin 4.1 (3.5-5.0) g/dL 02/12/20 Range/Units 18:33 WBC (3.8-10.6) k/uL RBC (3.80-5.40) m/uL Hgb (11.4-16.0) gm/dL Hct (34.0-46.0) % MCV (80.0-100.0) fL MCH (25.0-35.0) pg MCHC (31.0-37.0) g/dL RDW (11.5-15.5) % Plt Count (150-450) k/uL Neutrophils % % Lymphocytes % % Monocytes % % Eosinophils % % Basophils % % Neutrophils # (1.3-7.7) k/uL Lymphocytes # (1.0-4.8) k/uL Monocytes # (0-1.0) k/uL Eosinophils # (0-0.7) k/uL Basophils # (0-0.2) k/uL PT (9.0-12.0) sec INR (<1.2) APTT (22.0-30.0) sec Sodium (137-145) mmol/L Potassium (3.5-5.1) mmol/L Chloride (98-107) mmol/L Carbon Dioxide (22-30) mmol/L Anion Gap mmol/L BUN (7-17) mg/dL Creatinine (0.52-1.04) mg/dL Est GFR (CKD-EPI)AfAm (>60 ml/min/1.73 sqM) Est GFR (CKD-EPI)NonAf (>60 ml/min/1.73 sqM) Glucose (74-99) mg/dL Calcium (8.4-10.2) mg/dL Total Bilirubin (0.2-1.3) mg/dL AST (14-36) U/L ALT (4-34) U/L Alkaline Phosphatase (38-126) U/L Troponin I 0.016 (0.000-0.034) ng/mL Total Protein (6.3-8.2) g/dL Albumin (3.5-5.0) g/dL - EKG Data -: EKG Interpreted by Me EKG Comments: EKG obtained at 1902 shows normal sinus rhythm with a ventricular rate is 68, CO interval 170, QRS duration 100, QT 382, QTc 406. No evidence of ST elevation or depression. - Radiology Data Radiology results: report reviewed, image reviewed CT brain without contrast is obtained. Report was reviewed in its entirety. Impression by Dr. León shows negative unenhanced head CT scan. No change. Two-view x-ray of the chest is obtained. Report was reviewed in its entirety. Impression by Dr. León shows normal chest. No change. CT angiography of the head and neck is obtained. Report was reviewed in its entirety. Impression by Dr. León shows negative CT angiogram of the neck. Negative CT angiogram of the brain. No adverse change compared to old exam. Disposition Clinical Impression: Seizures Disposition: HOME SELF-CARE Condition: Good Instructions (If sedation given, give patient instructions): Recurrent Seizures in Adults (ED) Additional Instructions: Take medications as directed. Follow up with your primary care physician for recheck in 1-2 days. Follow-up with neurology. Return to the emergency department immediately for any new, worsening, or concerning symptoms. Is patient prescribed a controlled substance at d/c from ED?: No Referrals: Gabriele Meza DO [Primary Care Provider] - 1-2 days Toribio Torrez MD [Medical Doctor] - 1-2 days Time of Disposition: 20:54
[2020-02-12 18:49] LABS: ALT 13 U/L (4-34); AST 28 U/L (14-36); African American GFR (CKD) >90 (>60 ml/min/1.73 sqM); Albumin 4.1 g/dL (3.5-5.0); Alkaline Phosphatase 87 U/L (38-126); Anion Gap 7 mmol/L; Blood Urea Nitrogen 12 mg/dL (7-17); Calcium 8.8 mg/dL (8.4-10.2); Carbon Dioxide 24 mmol/L (22-30); Chloride 106 mmol/L (98-107); Glucose 106 mg/dL (74-99); Non-African American GFR(CKD) >90 (>60 ml/min/1.73 sqM); Sodium 137 mmol/L (137-145); Total Bilirubin 0.8 mg/dL (0.2-1.3); Total Protein 7.5 g/dL (6.3-8.2)
[2020-02-12 19:01] LABS: Potassium 4.5 mmol/L (3.5-5.1)
[2020-02-12 19:06] LABS: Partial Thromboplastin Time 20.6 sec (22.0-30.0)
--- NOTE | 2020-02-12 19:39 | CT ---
EXAMINATION TYPE: CT brain wo con DATE OF EXAM: 02/12/2020 COMPARISON: 05/11/2017 HISTORY: Seizure activity. CT DLP: 1102.8 mGycm Automated exposure control for dose reduction was used. Ventricles have normal size. There is no mass effect nor midline shift. There is no sign of intracran ial hemorrhage. Calvarium is intact. The skull base is intact. IMPRESSION: Negative unenhanced head CT scan. No change.
--- NOTE | 2020-02-12 19:42 | XR ---
EXAMINATION TYPE: XR chest 2V DATE OF EXAM: 02/12/2020 COMPARISON: 02/04/2017 HISTORY: Chest pain TECHNIQUE: FINDINGS: Heart and mediastinum are normal. Lungs are clear. Diaphragm is normal. Bony thorax appears intact. IMPRESSION: Normal chest. No change.
--- NOTE | 2020-02-12 20:21 | CT ---
EXAMINATION TYPE: CT angio head neck DATE OF EXAM: 02/12/2020 COMPARISON: 05/11/2017 HISTORY: Left sided weakness. CT DLP: 682.1 mGycm Automated exposure control for dose reduction was used. CONTRAST: Performed with IV Contrast, patient injected with 65 mL of Isovue 370. Our 3-D post processed images. There is normal branching pattern of the great vessels on the aortic arch. There is bilateral arterial flow in the subclavian arteries. There is arterial flow in the common int ernal and external carotid arteries bilaterally. There is wide patency of the carotid artery bifurcat ions. There is no evidence of stenosis. There is bilateral arterial flow in the vertebral arteries. T here is no evidence of carotid or vertebral artery aneurysm or dissection. There is arterial flow in the vertebrobasilar artery system. There is arterial flow in the anterior m iddle and posterior cerebral arteries. There is no evidence of hemodynamic stenosis. There is no evid ence of aneurysm or dissection. There is normal contrast opacification of the venous sinuses. IMPRESSION: Negative CT angiogram of the neck. Negative CT angiogram of the brain. No adverse change compared to old exam.
[2020-02-12] MEDS ORDERED: ACETAMINOPHEN TAB 500 MG TAB PO STA (20:58)
[2020-02-12 21:35] VITALS: BP 132/75; PULSE 74; RESP 18; TEMP 98
== END 2020-02-12 21:39 | disposition home or self-care (01) ==
LOC: EC 16:46
DX: G40.909 Epilepsy, unspecified, not intractable, without status epilepticus (principal); R53.1 Weakness; R47.01 Aphasia; F41.9 Anxiety disorder, unspecified; J45.909 Unspecified asthma, uncomplicated; F32.9 Major depressive disorder, single episode, unspecified; M19.90 Unspecified osteoarthritis, unspecified site; Z87.891 Personal history of nicotine dependence; Z88.6 Allergy status to analgesic agent; Z91.048 Other nonmedicinal substance allergy status; Z79.51 Long term (current) use of inhaled steroids; Z79.899 Other long term (current) drug therapy; Z86.73 Personal history of transient ischemic attack (TIA), and cerebral infarction without residual deficits
CPT/HCPCS: 96360; 96361; 99284; 36415; 93005; 80053; 84484; 85025; 85610; 85730; 71046; 70496; 70450; 70498; Q9967

== ENCOUNTER → 2020-02-21 | Outpatient (CLI) | payer MEDICARE, OTHER ==
[2020-02-21 16:15] VITALS: BP 108/70; PULSE 83; RESP 16; TEMP 98.3; BMI 43.4
--- NOTE | 2020-02-21 16:37 | P.PN ---
Subjective Progress Note Date: 02/21/20 DATE OF SERVICE: 02/21/2020 CHIEF COMPLAINT: Status post gastric bypass HISTORY OF PRESENT ILLNESS: Lety De La Rosa is a 34-year-old female who is status post sleeve to gastric bypass, 08/09/2017. She is almost 3 years out. She has no further dysphagia. She denies any further abdominal pain. She was in the emergency room for seizures. She has history of brain lesions causing seizures. She is pending to see the neurologist. She has lost her primary care provider. She has changed her last name. She has lost over 100+ pounds in 3 years. She presents today following presentation to the ER for seizures which is worsening. She has no further reports of depressive disorder. At her height of 5 feet 10.25 inches, her initial weight was 499 pounds. Today she comes in weighing 304 pounds from 356 pounds, 10 months ago. She has lost 52 pounds in 10 months. Her ideal body weight is 173 pounds. She has maintained 195 pound weight loss, lifetime. Percent excess weight loss is 60 %. Body mass index is reduced from 71.2 down to 43.5. PAST MEDICAL HISTORY: 1. Morbid obesity, BMI 71.2, initial 2. Iron deficiency anemia. 3. Hypertensive heart disease. 4. Gastroesophageal reflux disease. 5. Depression. 6. Asthma. 7. Chronic pain. 8. Diaphragmatic hiatal hernia. PAST SURGICAL HISTORY: 1. Sleeve gastrectomy in July 2013. 2. section. 3. Cholecystectomy. 4. Upper endoscopy. 5. Hiatal hernia repair, 05/2017 6. Gastric bypass, 08/2017 7. Lysis of adhesions, 2017 MEDICATIONS: Home Medications Medication Instructions Recorded Confirmed Gabapentin [Neurontin] 800 mg PO TID 04/19/19 10/25/19 HYDROcodone/APAP 7.5-325MG [[employer] 1 tab PO TID 04/19/19 10/25/19 7.5-325] Albuterol Nebulized [Ventolin 2.5 mg INHALATION RT-QID PRN 10/25/19 10/25/19 Nebulized] OXcarbazepine [Trileptal] 300 mg PO BID 10/25/19 10/25/19 Venlafaxine HCl [Effexor XR] 75 mg PO DAILY 10/25/19 10/25/19 busPIRone HCl [Buspar] 5 mg PO BID 10/25/19 10/25/19 risperiDONE [RisperDAL] 0.5 mg PO BID 10/25/19 10/25/19 ALLERGIES: IBUPROFEN, VENOFER - Anaphylaxis SOCIAL HISTORY: Lifelong nontobacco user. FAMILY HISTORY: Pertinent for diabetes including morbid obesity. REVIEW OF SYSTEMS: CONSTITUTIONAL: Tell body weight is 173 pounds. Highest weight of 499 pounds. BMI 71.9 initial GASTROINTESTINAL: Gastroesophageal reflux disease resolved. No dumping syndrome. PSYCH: History of depression without any recent suicidal ideation. Past psychosis. HEENT: Has troubles with hearing. Wears glasses. Past reports of active dysphagia to solid foods. RESPIRATORY: Has prior history of obstructive sleep apnea, improved. No pneumonia. Has asthma. CARDIOVASCULAR: History of hypertension improved. No recent palpitations. MUSCULOSKELETAL: Diffuse osteoarthritis especially of the knees and hips, improved. NEURO: New seizure disorder and syncopal episodes. History of brain tumors of the occiput HEMATOLOGIC: Denies any DVTs. No easy bruising. Has chronic anemia. SKIN: Has panniculitis. No skin cancer. PHYSICAL EXAM: VITAL SIGNS: 5 feet 10.25 inches, 304 pounds. BMI 43.4 Vital Signs Temp 98.3 F 02/21/20 16:12 Pulse 83 02/21/20 16:12 Resp 16 02/21/20 16:12 BP 108/70 02/21/20 16:12 Pulse Ox GENERAL: Well-developed, pleasant female in no acute distress. HEENT: No scleral icterus. Extraocular movements grossly intact. No nasal drainage. NECK: Supple without lymphadenopathy. CHEST: Nonlabored respirations, equal bilateral excursions. CARDIOVASCULAR: Palpable 2+ pulses. Regular rate. Regular rhythm. ABDOMEN: Mild tenderness along the epigastrium. No peritonitis. NEURO: No focal or lateralizing signs. Cranial nerves II through XII grossly within normal limits. PSYCH: Appropriate affect. Alert and oriented to person, place, and time. SKIN: Good skin turgor. Well perfused. LABS: WBC normal. Troponin negative. STUDIES: CT of the brain independently reviewed without hemorrhagic lesions. REPORT: CTA of the neck without abnormalities ASSESSMENT: 1. Morbid obesity due to excess calories. 2. Body mass index reduced from 71.2 to 43.4 3. 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 4. Seizure disorder 5. History of brain tumors of the occiput PLAN: 1. Recommend referral to the neurologist for worsening seizure disorder. 2. Recommend follow-up for any abdominal pain and troubles with swallowing or weight gain. Objective - Vital Signs Vital signs: Vital Signs Temp 98.3 F 02/21/20 16:12 Pulse 83 02/21/20 16:12 Resp 16 02/21/20 16:12 BP 108/70 02/21/20 16:12 Pulse Ox Intake & Output 02/20/20 02/21/20 02/21/20 18:59 06:59 18:59 Weight 138.346 kg
== END | disposition home or self-care (01) ==
LOC: BARWHC3 15:27
PROVIDERS: ATTEND Surgery Plastic and Reconstructive Surgery
DX: E66.01 Morbid (severe) obesity due to excess calories (principal); Z68.41 Body mass index [BMI] 40.0-44.9, adult; G40.909 Epilepsy, unspecified, not intractable, without status epilepticus; Z98.84 Bariatric surgery status; Z88.8 Allergy status to other drugs, medicaments and biological substances; Z79.899 Other long term (current) drug therapy; Z79.891 Long term (current) use of opiate analgesic; I11.9 Hypertensive heart disease without heart failure; F32.9 Major depressive disorder, single episode, unspecified; J45.909 Unspecified asthma, uncomplicated
CPT/HCPCS: 99211

== ENCOUNTER 2020-07-08 10:31 | Emergency (ER) | payer MEDICARE, OTHER ==
[2020-07-08 10:35] VITALS: TEMP 98.8
[2020-07-08] MEDS ORDERED: SODIUM CHLORIDE 0.9% 1,000 ML IV STA ×2 (11:10)
--- NOTE | 2020-07-08 11:14 | ED ---
General Adult HPI - General Chief complaint: Recheck/Abnormal Lab/Rx Stated complaint: Seizures, Back Pain Time Seen by Provider: 07/08/20 10:43 Source: patient, RN notes reviewed, old records reviewed Mode of arrival: ambulatory Limitations: no limitations - History of Present Illness Initial comments: 34 rolled female presents emergency department today with seizure disorder. She reports that she's had more frequent past. She has seizure daily for months. Patient reports that she is on Trileptal Patient is to also was previously on gabapentin but missed her appointment with her doctor to have further Rx. Pt also complains of back pain and dysuria for the past week. She denies vaginal bleeding or discharge. She denies chance of . Treated for UTI 1 month ago. - Related Data Home Medications Medication Instructions Recorded Confirmed OXcarbazepine [Trileptal] 300 mg PO BID 10/25/19 07/08/20 busPIRone HCl [Buspar] 5 mg PO BID 10/25/19 07/08/20 Previous Rx's Medication Instructions Recorded Gabapentin 600 mg PO TID 3 Days #9 tab 07/08/20 Nitrofurantoin Monohyd/M-Cryst 100 mg PO Q12HR #14 cap 07/08/20 [Macrobid] Allergies Allergy/AdvReac Type Severity Reaction Status Date / Time amoxicillin Allergy Unknown Verified 07/08/20 12:17 ibuprofen [From Motrin] Allergy Anaphylaxis Verified 07/08/20 12:17 iron Allergy Anaphylaxis Verified 07/08/20 12:17 to Venofer Penicillins Allergy Unknown Verified 07/08/20 12:17 tramadol Allergy Anaphylaxis Verified 07/08/20 12:17 Review of Systems ROS Statement: Those systems with pertinent positive or pertinent negative responses have been documented in the HPI. ROS Other: All systems not noted in ROS Statement are negative. Past Medical History Past Medical History: Asthma, GERD/Reflux, Osteoarthritis (OA), Seizure Disorder Additional Past Medical History / Comment(s): "having difficulty swallowing and vomiting",Abdominal pain, back pain, hiatal hernia, anemia. 05/12/17: Dr. Ambrocio reports that the patient has a history of having periods of unresponsiveness as well as a history of a positive vaso-vagal response. History of Any Multi-Drug Resistant Organisms: None Reported Past Surgical History: Bariatric Surgery, Section, Cholecystectomy, Hernia Repair Additional Past Surgical History / Comment(s): 10/05/16 EGD, sleeve gastrectomy 07/25/13, lysis of adhesions abd, hiatel hernia, EGD 05/11/17.gastric bypass 08-09-17 surgery to remove lesions Past Anesthesia/Blood Transfusion Reactions: No Reported Reaction Additional Past Anesthesia/Blood Transfusion Reaction / Comment(s): Difficult IV start. Past Psychological History: Anxiety, Bipolar, Depression Smoking Status: Never smoker Past Alcohol Use History: None Reported Past Drug Use History: None Reported - Past Family History Mother Family Medical History: Renal Disease Additional Family Medical History / Comment(s): Mother of kidney disease. General Exam - General Exam Comments Initial Comments: Alert and oriented 34 [place]oh[place] no. Patient appears in no acute distress. Limitations: no limitations General appearance: alert, in no apparent distress Head exam: Present: atraumatic, normocephalic, normal inspection Eye exam: Present: normal appearance, PERRL, EOMI. Absent: scleral icterus, conjunctival injection, periorbital swelling ENT exam: Present: normal exam, mucous membranes moist Neck exam: Present: normal inspection. Absent: tenderness, meningismus, lymphadenopathy Respiratory exam: Present: normal lung sounds bilaterally. Absent: respiratory distress, wheezes, rales, rhonchi, stridor Cardiovascular Exam: Present: regular rate, normal rhythm, normal heart sounds. Absent: systolic murmur, diastolic murmur, rubs, gallop, clicks GI/Abdominal exam: Present: soft, normal bowel sounds. Absent: distended, tenderness, guarding, rebound, rigid Extremities exam: Present: normal inspection Back exam: Present: normal inspection Neurological exam: Present: alert, oriented X3, CN II-XII intact Psychiatric exam: Present: normal affect, normal mood Skin exam: Present: warm, dry, intact, normal color. Absent: rash Course Vital Signs 07/08/20 07/08/20 07/08/20 10:31 12:35 12:58 Temperature 98.8 F Pulse Rate 101 H 77 Pulse Rate [ 76 Pulse Oximetery ] Respiratory 16 8 L 22 Rate Blood Pressure 137/65 96/46 Blood Pressure 115/78 [Right Arm Supine] O2 Sat by Pulse 99 98 Oximetry 07/08/20 13:35 Temperature 98.8 F Pulse Rate 77 Pulse Rate [ Pulse Oximetery ] Respiratory 18 Rate Blood Pressure 117/89 Blood Pressure [Right Arm Supine] O2 Sat by Pulse 98 Oximetry Medical Decision Making - Medical Decision Making 34 year old female with seizure disorder non complaint with medication reports more frequent seizures. She also complains of lower back pain and dysuria. Pt will have Urine culture completed. CBC and CMP are unremarkable. Discussed resuming gabapentin and close PCP follow up and neurology follow up. - Lab Data Result diagrams: 07/08/20 11:39 07/08/20 11:39 Lab Results 07/08/20 07/08/20 07/08/20 Range/Units 11:39 11:39 11:39 WBC 8.5 (3.8-10.6) k/uL RBC 4.53 (3.80-5.40) m/uL Hgb 12.7 (11.4-16.0) gm/dL Hct 40.6 (34.0-46.0) % MCV 89.7 (80.0-100.0) fL MCH 28.0 (25.0-35.0) pg MCHC 31.2 (31.0-37.0) g/dL RDW 13.6 (11.5-15.5) % Plt Count 232 (150-450) k/uL Neutrophils % 67 % Lymphocytes % 24 % Monocytes % 5 % Eosinophils % 2 % Basophils % 0 % Neutrophils # 5.7 (1.3-7.7) k/uL Lymphocytes # 2.1 (1.0-4.8) k/uL Monocytes # 0.4 (0-1.0) k/uL Eosinophils # 0.2 (0-0.7) k/uL Basophils # 0.0 (0-0.2) k/uL Sodium 139 (137-145) mmol/L Potassium 4.3 (3.5-5.1) mmol/L Chloride 107 (98-107) mmol/L Carbon Dioxide 26 (22-30) mmol/L Anion Gap 6 mmol/L BUN 16 (7-17) mg/dL Creatinine 0.69 (0.52-1.04) mg/dL Est GFR (CKD-EPI)AfAm >90 (>60 ml/min/1.73 sqM) Est GFR (CKD-EPI)NonAf >90 (>60 ml/min/1.73 sqM) Glucose 92 (74-99) mg/dL Calcium 8.8 (8.4-10.2) mg/dL Total Bilirubin 0.3 (0.2-1.3) mg/dL AST 23 (14-36) U/L ALT 18 (4-34) U/L Alkaline Phosphatase 78 (38-126) U/L Total Protein 6.8 (6.3-8.2) g/dL Albumin 3.6 (3.5-5.0) g/dL Urine Color Sandi Urine Appearance Clear (Clear) Urine pH 6.0 (5.0-8.0) Ur Specific Burson 1.035 (1.001-1.035) Urine Protein 1+ H (Negative) Urine Glucose (UA) Negative (Negative) Urine Ketones Negative (Negative) Urine Blood Moderate (Negative) Urine Nitrite Negative (Negative) Urine Bilirubin 4+ H (Negative) Urine Urobilinogen 4.0 (<2.0) mg/dL Ur Leukocyte Esterase Large (Negative) Urine RBC 1 (0-5) /hpf Urine WBC 2 (0-5) /hpf Ur Squamous Epith Cells 1 (0-4) /hpf Urine Mucus Rare H (None) /hpf Urine HCG, Qual (Not Detectd) Valproic Acid <10.0 ug/mL Carbamazepine <3.0 ug/mL 07/08/20 Range/Units 11:39 WBC (3.8-10.6) k/uL RBC (3.80-5.40) m/uL Hgb (11.4-16.0) gm/dL Hct (34.0-46.0) % MCV (80.0-100.0) fL MCH (25.0-35.0) pg MCHC (31.0-37.0) g/dL RDW (11.5-15.5) % Plt Count (150-450) k/uL Neutrophils % % Lymphocytes % % Monocytes % % Eosinophils % % Basophils % % Neutrophils # (1.3-7.7) k/uL Lymphocytes # (1.0-4.8) k/uL Monocytes # (0-1.0) k/uL Eosinophils # (0-0.7) k/uL Basophils # (0-0.2) k/uL Sodium (137-145) mmol/L Potassium (3.5-5.1) mmol/L Chloride (98-107) mmol/L Carbon Dioxide (22-30) mmol/L Anion Gap mmol/L BUN (7-17) mg/dL Creatinine (0.52-1.04) mg/dL Est GFR (CKD-EPI)AfAm (>60 ml/min/1.73 sqM) Est GFR (CKD-EPI)NonAf (>60 ml/min/1.73 sqM) Glucose (74-99) mg/dL Calcium (8.4-10.2) mg/dL Total Bilirubin (0.2-1.3) mg/dL AST (14-36) U/L ALT (4-34) U/L Alkaline Phosphatase (38-126) U/L Total Protein (6.3-8.2) g/dL Albumin (3.5-5.0) g/dL Urine Color Urine Appearance (Clear) Urine pH (5.0-8.0) Ur Specific Burson (1.001-1.035) Urine Protein (Negative) Urine Glucose (UA) (Negative) Urine Ketones (Negative) Urine Blood (Negative) Urine Nitrite (Negative) Urine Bilirubin (Negative) Urine Urobilinogen (<2.0) mg/dL Ur Leukocyte Esterase (Negative) Urine RBC (0-5) /hpf Urine WBC (0-5) /hpf Ur Squamous Epith Cells (0-4) /hpf Urine Mucus (None) /hpf Urine HCG, Qual Not Detected (Not Detectd) Valproic Acid ug/mL Carbamazepine ug/mL 07/08/20 13:54 EKG performed shows normal sinus rhythm. Ventricular rate of 71 bpm. Verbal is 166 ms. QS duration is 98 ms. QT QTc is 382/450 ms. Disposition Clinical Impression: History of seizure, Dysuria, Back pain Disposition: HOME SELF-CARE Condition: Good Instructions (If sedation given, give patient instructions): Dysuria (ED), Recurrent Seizures in Adults (ED) Additional Instructions: Please use medication as discussed. Please follow up with family doctor if symptoms have not improved over the next two days. Please return to the emergency room if your symptoms increase or worsen or for any other concerns. Prescriptions: Gabapentin 600 mg PO TID 3 Days #9 tab Nitrofurantoin Monohyd/M-Cryst [Macrobid] 100 mg PO Q12HR #14 cap Is patient prescribed a controlled substance at d/c from ED?: No Referrals: Gabriele Meza DO [REFERRING] - 1-2 days Time of Disposition: 13:17
[2020-07-08 11:51] LABS: Basophils % (A) 0 %; Eosinophils # (A) 0.2 k/uL (0-0.7); Eosinophils % (A) 2 %; HCT 40.6 % (34.0-46.0); HGB 12.7 gm/dL (11.4-16.0); Lymphocytes # (A) 2.1 k/uL (1.0-4.8); Lymphocytes % (A) 24 %; MCHC 31.2 g/dL (31.0-37.0); MCV 89.7 fL (80.0-100.0); Mean Platelet Volume 6.3; Monocytes # (A) 0.4 k/uL (0-1.0); Monocytes % (A) 5 %; Neutrophils # (A) 5.7 k/uL (1.3-7.7); Neutrophils % (A) 67 %; Platelet Count 232 k/uL (150-450); RBC 4.53 m/uL (3.80-5.40); RDW 13.6 % (11.5-15.5); WBC 8.5 k/uL (3.8-10.6)
[2020-07-08 12:02] LABS: ALT 18 U/L (4-34); AST 23 U/L (14-36); African American GFR (CKD) >90 (>60 ml/min/1.73 sqM); Albumin 3.6 g/dL (3.5-5.0); Alkaline Phosphatase 78 U/L (38-126); Anion Gap 6 mmol/L; Blood Urea Nitrogen 16 mg/dL (7-17); Calcium 8.8 mg/dL (8.4-10.2); Carbamazepine (Tegretol) <3.0 ug/mL; Carbon Dioxide 26 mmol/L (22-30); Chloride 107 mmol/L (98-107); Glucose 92 mg/dL (74-99); Non-African American GFR(CKD) >90 (>60 ml/min/1.73 sqM); Potassium 4.3 mmol/L (3.5-5.1); Sodium 139 mmol/L (137-145); Total Bilirubin 0.3 mg/dL (0.2-1.3); Total Protein 6.8 g/dL (6.3-8.2)
[2020-07-08 12:05] LABS: Valproic Acid (Depakene) <10.0 ug/mL
[2020-07-08 12:13] LABS: Appearance,Urine Clear (Clear); Color,Urine Amber; Specific Gravity,Urine 1.035 (1.001-1.035)
[2020-07-08 12:14] LABS: Bilirubin,Urine 4+ (Negative); Glucose,Urine (UA) Negative (Negative); Ketones,Urine Negative (Negative); Protein,Urine 1+ (Negative)
[2020-07-08 12:15] LABS: Leukocyte Esterase,Urine Large (Negative); Nitrite,Urine Negative (Negative)
[2020-07-08 12:16] LABS: Blood,Urine Moderate (Negative)
[2020-07-08 12:18] LABS: Mucus,Urine Rare /hpf; RBC,Urine 1 /hpf (0-5); Squamous Epithelial Cell,Urine 1 /hpf (0-4); WBC,Urine 2 /hpf (0-5)
[2020-07-08] MEDS ORDERED: ACETAMINOPHEN TAB 500 MG TAB PO STA (13:04)
[2020-07-08] MEDS ORDERED: ORPHENADRINE 30 MG/ML 2 ML VIAL IVP STA (13:04)
[2020-07-08 13:07] VITALS: PULSE 77
[2020-07-08 13:37] VITALS: BP 117/89; RESP 18
[2020-07-10 15:54] LABS: C. trachomatis,PCR Positive (Neg,Equiv); Chlamydia trachomatis Source Urine; N. gonorrhoeae,PCR Negative (Neg,Equiv); Neisseria Source Urine
== END 2020-07-08 13:56 | disposition home or self-care (01) ==
LOC: EC 10:31
DX: G40.909 Epilepsy, unspecified, not intractable, without status epilepticus (principal); R30.0 Dysuria; M54.9 Dorsalgia, unspecified; F41.9 Anxiety disorder, unspecified; F31.9 Bipolar disorder, unspecified; Z79.899 Other long term (current) drug therapy; Z88.0 Allergy status to penicillin; Z88.6 Allergy status to analgesic agent; Z91.048 Other nonmedicinal substance allergy status
CPT/HCPCS: 36415; 93005; 80156; 80164; 80053; 85025; 81001; 81025; 87491; 87591; 87086; 99284; 96374; J2360

== ENCOUNTER → 2020-07-12 | Outpatient (CLI) | payer MEDICARE, OTHER ==
[2020-07-12 13:36] LABS: HCT 37.9 % (34.0-46.0); HGB 12.5 gm/dL (11.4-16.0); MCH 29.1 pg (25.0-35.0); MCHC 32.9 g/dL (31.0-37.0); MCV 88.4 fL (80.0-100.0); Mean Platelet Volume 6.7; Platelet Count 235 k/uL (150-450); RBC 4.28 m/uL (3.80-5.40); RDW 13.2 % (11.5-15.5); WBC 6.6 k/uL (3.8-10.6)
[2020-07-12 13:40] LABS: INR 0.9 (<1.2); Partial Thromboplastin Time 24.8 sec (22.0-30.0); Prothrombin Time 9.4 sec (9.0-12.0)
[2020-07-12 19:56] LABS: % Iron Saturation 12.08 (12.00-45.00); African American GFR (CKD) 129.2 (60.0-200.0); Albumin/Globulin Ratio 1.6 (1.60-3.17); Anion Gap 8.6 mmol/L (4.00-12.00); BUN/Creat Ratio 25.71 Ratio (12.00-20.00); Calcium 8.8 mg/dL (8.7-10.3); Carbon Dioxide 26.4 mmol/L (21.6-31.8); Chol/HDL Ratio 3.25; Globulin 2.5 g/dL (1.6-3.3); LDL Cholesterol,Calculated 78.6 mg/dL (0.0-131.0); Magnesium 1.9 mg/dL (1.5-2.4); Non-African American GFR(CKD) 111.5 (60.0-200.0); Phosphorus 4.8 mg/dL (2.4-5.1); Potassium 4.3 mmol/L (3.5-5.5); Total Bilirubin 0.3 mg/dL (0.3-1.2); Total Protein 6.5 g/dL (6.2-8.2); VLDL Calculation 29.4 mg/dL (5.00-40.00)
[2020-07-12 20:16] LABS: Folate, Serum 22.2 ng/mL
[2020-07-13 14:28] LABS: Hemoglobin A1C 4.9 % (4.0-6.0)
== END | disposition home or self-care (01) ==
LOC: LABWHC1 11:51
PROVIDERS: ATTEND Surgery Plastic and Reconstructive Surgery
DX: E89.1 Postprocedural hypoinsulinemia (principal); D50.8 Other iron deficiency anemias; K90.89 Other intestinal malabsorption; E55.9 Vitamin D deficiency, unspecified; K74.1 Hepatic sclerosis; N19 Unspecified kidney failure; K50.90 Crohn's disease, unspecified, without complications
CPT/HCPCS: 36415; 80053; 80061; 82306; 82525; 82607; 82728; 82746; 83036; 83540; 83550; 83735; 83970; 84100; 84134; 84255; 84425; 84443; 84590; 84630; 85027; 85610; 85730

== ENCOUNTER 2021-08-08 19:07 | Inpatient (IN) | payer MEDICARE, OTHER ==
--- NOTE | 2021-08-08 21:40 | XR ---
EXAMINATION TYPE: XR chest 1V portable DATE OF EXAM: 08/08/2021 COMPARISON: NONE HISTORY: Seizure TECHNIQUE: Single view FINDINGS: Heart and mediastinum are normal. Lungs are clear of consolidation. There are no hilar mass es. There is poor inspiration. IMPRESSION: Poor inspiration that is decreased compared to old exam. No pulmonary consolidation.
[2021-08-09] MEDS ORDERED: HYDROmorphone 1 MG/ML 1 ML SYRINGE IM STA (01:52)
[2021-08-09] MEDS ORDERED: IPRATROPIUM-ALBUTEROL 3 ML NEB INHALATION STA (01:53)
--- NOTE | 2021-08-09 01:54 | ED ---
Recheck HPI - General Chief Complaint: Shortness of Breath Stated Complaint: ALEJANDRA,Lightheaded Time Seen by Provider: 08/09/21 00:59 Source: patient, family Mode of arrival: ambulatory Limitations: no limitations - Related Data Home Medications Medication Instructions Recorded Confirmed OXcarbazepine [Trileptal] 300 mg PO BID 10/25/19 08/08/20 busPIRone HCl [Buspar] 5 mg PO BID 10/25/19 08/08/20 Ergocalciferol [Vitamin D2 50,000 unit PO WEEKLY 08/08/20 08/08/20 (DRISDOL)] Previous Rx's Medication Instructions Recorded Gabapentin 600 mg PO TID 3 Days #9 tab 07/08/20 Nitrofurantoin Monohyd/M-Cryst 100 mg PO Q12HR #14 cap 07/08/20 [Macrobid] Allergies Allergy/AdvReac Type Severity Reaction Status Date / Time amoxicillin Allergy Unknown Verified 08/08/21 21:22 ibuprofen [From Motrin] Allergy Anaphylaxis Verified 08/08/21 21:22 iron Allergy Anaphylaxis Verified 08/08/21 21:22 to Venofer Penicillins Allergy Unknown Verified 08/08/21 21:22 tramadol Allergy Anaphylaxis Verified 08/08/21 21:22 Review of Systems ROS Statement: Those systems with pertinent positive or pertinent negative responses have been documented in the HPI. ROS Other: All systems not noted in ROS Statement are negative. Past Medical History Past Medical History: Asthma, GERD/Reflux, Osteoarthritis (OA), Seizure Disorder Additional Past Medical History / Comment(s): "having difficulty swallowing and vomiting",Abdominal pain, back pain, hiatal hernia, anemia. 05/12/17: Dr. Ambrocio reports that the patient has a history of having periods of unresponsiveness as well as a history of a positive vaso-vagal response. History of Any Multi-Drug Resistant Organisms: None Reported Past Surgical History: Bariatric Surgery, Section, Cholecystectomy, Hernia Repair Additional Past Surgical History / Comment(s): 10/05/16 EGD, sleeve gastrectomy 07/25/13, lysis of adhesions abd, hiatel hernia, EGD 05/11/17.gastric bypass 08-09-17 surgery to remove lesions Past Anesthesia/Blood Transfusion Reactions: No Reported Reaction Additional Past Anesthesia/Blood Transfusion Reaction / Comment(s): Difficult IV start. Past Psychological History: Anxiety, Bipolar, Depression Smoking Status: Never smoker Past Alcohol Use History: None Reported Past Drug Use History: None Reported - Past Family History Mother Family Medical History: Renal Disease Additional Family Medical History / Comment(s): Mother of kidney disease. General Exam Limitations: no limitations Course Vital Signs 08/08/21 08/09/21 08/09/21 21:16 01:05 02:33 Temperature 98.7 F Pulse Rate 104 H 99 80 Respiratory 26 H 18 Rate Blood Pressure 127/79 106/71 O2 Sat by Pulse 96 97 Oximetry 08/09/21 02:43 Temperature Pulse Rate 84 Respiratory Rate Blood Pressure O2 Sat by Pulse Oximetry Medical Decision Making - Lab Data Result diagrams: 08/09/21 02:15 08/09/21 02:15 Lab Results 08/08/21 08/09/21 08/09/21 Range/Units 21:24 02:15 02:15 WBC 7.4 (3.8-10.6) k/uL RBC 5.36 (3.80-5.40) m/uL Hgb 13.9 (11.4-16.0) gm/dL Hct 43.0 (34.0-46.0) % MCV 80.1 (80.0-100.0) fL MCH 25.9 (25.0-35.0) pg MCHC 32.3 (31.0-37.0) g/dL RDW 14.4 (11.5-15.5) % Plt Count 287 (150-450) k/uL MPV 7.0 Neutrophils % 65 % Lymphocytes % 24 % Monocytes % 7 % Eosinophils % 2 % Basophils % 1 % Neutrophils # 4.8 (1.3-7.7) k/uL Lymphocytes # 1.8 (1.0-4.8) k/uL Monocytes # 0.5 (0-1.0) k/uL Eosinophils # 0.1 (0-0.7) k/uL Basophils # 0.0 (0-0.2) k/uL Sodium 139 (137-145) mmol/L Potassium 4.4 (3.5-5.1) mmol/L Chloride 104 (98-107) mmol/L Carbon Dioxide 26 (22-30) mmol/L Anion Gap 9 mmol/L BUN 15 (7-17) mg/dL Creatinine 0.64 (0.52-1.04) mg/dL Est GFR (CKD-EPI)AfAm >90 (>60 ml/min/1.73 sqM) Est GFR (CKD-EPI)NonAf >90 (>60 ml/min/1.73 sqM) Glucose 120 H (74-99) mg/dL Calcium 8.9 (8.4-10.2) mg/dL Total Bilirubin 0.7 (0.2-1.3) mg/dL AST 42 H (14-36) U/L ALT 42 H (4-34) U/L Alkaline Phosphatase 102 (38-126) U/L Total Protein 7.8 (6.3-8.2) g/dL Albumin 4.0 (3.5-5.0) g/dL Amylase 55 (30-110) U/L Lipase 190 (23-300) U/L Coronavirus (PCR) Not Detected (Not Detectd) Disposition Clinical Impression: Morbid obesity, Pulmonary embolism Disposition: ADMITTED IP TO THIS HOSP Condition: Serious Is patient prescribed a controlled substance at d/c from ED?: No Referrals: None,Stated [Primary Care Provider] - 1-2 days
[2021-08-09] MEDS ORDERED: SODIUM CHLORIDE 0.9% 1,000 ML IV STA (01:58)
[2021-08-09 02:29] LABS: Basophils % (A) 1 %; Eosinophils # (A) 0.1 k/uL (0-0.7); Eosinophils % (A) 2 %; HGB 13.9 gm/dL (11.4-16.0); Lymphocytes # (A) 1.8 k/uL (1.0-4.8); Lymphocytes % (A) 24 %; MCH 25.9 pg (25.0-35.0); MCHC 32.3 g/dL (31.0-37.0); MCV 80.1 fL (80.0-100.0); Monocytes # (A) 0.5 k/uL (0-1.0); Monocytes % (A) 7 %; Neutrophils # (A) 4.8 k/uL (1.3-7.7); Neutrophils % (A) 65 %; Platelet Count 287 k/uL (150-450); RBC 5.36 m/uL (3.80-5.40); RDW 14.4 % (11.5-15.5); WBC 7.4 k/uL (3.8-10.6)
[2021-08-09 02:54] LABS: ALT 42 U/L (4-34); AST 42 U/L (14-36); African American GFR (CKD) >90 (>60 ml/min/1.73 sqM); Alkaline Phosphatase 102 U/L (38-126); Amylase 55 U/L (30-110); Anion Gap 9 mmol/L; Blood Urea Nitrogen 15 mg/dL (7-17); Calcium 8.9 mg/dL (8.4-10.2); Carbon Dioxide 26 mmol/L (22-30); Chloride 104 mmol/L (98-107); Glucose 120 mg/dL (74-99); Lipase 190 U/L (23-300); Non-African American GFR(CKD) >90 (>60 ml/min/1.73 sqM); Potassium 4.4 mmol/L (3.5-5.1); Sodium 139 mmol/L (137-145); Total Bilirubin 0.7 mg/dL (0.2-1.3); Total Protein 7.8 g/dL (6.3-8.2)
--- NOTE | 2021-08-09 03:56 | CT ---
EXAMINATION TYPE: CT angio chest DATE OF EXAM: 08/09/2021 COMPARISON: None HISTORY: Chest pain CT DLP: mGycm Automated exposure control for dose reduction was used. CONTRAST: Performed , patient injected with mL of . The contrast was Isovue 100 mL. Images obtained from the thoracic inlet to the diaphragm with IV contrast. There are 3-D post process ed images. Exam limited by patient's size. As best as one can tell there is some diffuse pulmonary infiltrates. Heart is borderline enlarged. There is no pericardial effusion. There is infiltrate and atelectasis a t the posterior lung bases. There is no pleural effusion. There is significant artifact limiting evaluation of the right pulmonary artery. There appears to be filling defects in the right lower lobe pulmonary artery. There is no mediastinal adenopathy. Thoraci c aorta is intact. There is no aneurysm or dissection. Thoracic spine is intact. Ribs are intact. Sternum is intact. IMPRESSION: There is evidence for right lower lobe pulmonary emboli. Limited exam. Pulmonary embolism could be co nfirmed by perfusion lung scan in this patient that is difficult to evaluate by CT. This exam was discussed with ER attending staff at 4:00 AM. There is some pulmonary infiltrates similar more noticeable in the right lower lobe.
[2021-08-09] MEDS ORDERED: NALOXONE 0.4 MG/ML 1 ML VIAL IV PRN (04:11)
[2021-08-09] MEDS ORDERED: HEPARIN SODIUM 1,000 UN/ML (10ML VL) IV ONE (04:11)
[2021-08-09] MEDS ORDERED: LORazepam 2 MG/ML INJ IV PRN (04:11)
[2021-08-09] MEDS ORDERED: HYDROmorphone 1 MG/ML 1 ML SYRINGE IVP PRN (04:11)
[2021-08-09] MEDS ORDERED: HEPARIN SOD,PORK IN 0.45% NACL 25,000 UNIT in 0.45% NACL 1 250ML.BAG IV SCH (04:15)
[2021-08-09] MEDS ORDERED: SODIUM CHLORIDE 0.9% 1,000 ML IV SCH (04:15)
[2021-08-09] MEDS ORDERED: ONDANSETRON 4 MG/2 ML VIAL IVP STA (04:37)
--- NOTE | 2021-08-09 11:01 | NM ---
EXAMINATION TYPE: NM pul vent and perfuse DATE OF EXAM: 08/09/2021 COMPARISON: NONE HISTORY: SOB TECHNIQUE: Utilizing inhalation of 70.1 mCi Tc 99m DTPA aerosol and intravenous injection of 5.4 mCi of Tc 99m MAA, ventilation and perfusion images are acquired post injection in multiple projections. FINDINGS: Normal radiotracer distribution is noted in the lungs. There are multiple matched ventilation and per fusion defects. IMPRESSION: indeterminate for PE
--- NOTE | 2021-08-09 11:57 | P.HPIM ---
History of Present Illness Patient is a 35-year-old female came in with the complaints of right-sided upper abdominal pain along with shortness of breath progressively getting worse last few days patient is morbidly obese not checked ambulatory at home. Patient denied any fever chills patient was also having some pain in the shoulder area can't take a deep breath. Patient had a CT angios the chest which showed possibility of right sided pulmonary emboli a VQ scan was done as well which was indeterminate. Patient does have history of sleep apnea although noncompliant with CPAP machine. Patient had history of some can of bariatric surgery in the past without any significant weight loss REVIEW OF SYSTEMS: CONSTITUTIONAL: No fever, no malaise, no fatigue. HEENT: No recent visual problems or hearing problems. Denied any sore throat. CARDIOVASCULAR: No orthopnea, PND, no palpitations, no syncope. PULMONARY: No shortness of breath, no cough, no hemoptysis. GASTROINTESTINAL: No diarrhea, no nausea, no vomiting, no abdominal pain. NEUROLOGICAL: No headaches, no weakness, no numbness. HEMATOLOGICAL: Denies any bleeding or petechiae. GENITOURINARY: Denies any burning micturition, frequency, or urgency. MUSCULOSKELETAL/RHEUMATOLOGICAL: Denies any joint pain, swelling, or any muscle pain. ENDOCRINE: Denies any polyuria or polydipsia. The rest of the 14-point review of systems is negative. PHYSICAL EXAMINATION: GENERAL: The patient is alert and oriented x3, not in any acute distress. Morbidly obese HEENT: Pupils are round and equally reacting to light. EOMI. No scleral icterus. No conjunctival pallor. Normocephalic, atraumatic. No pharyngeal erythema. No thyromegaly. CARDIOVASCULAR: S1 and S2 present. No murmurs, rubs, or gallops. PULMONARY: Chest is clear to auscultation, no wheezing or crackles. ABDOMEN: Soft, nontender, nondistended, normoactive bowel sounds. No palpable organomegaly. MUSCULOSKELETAL: No joint swelling or deformity. EXTREMITIES: No cyanosis, clubbing, or pedal edema. NEUROLOGICAL: Gross neurological examination did not reveal any focal deficits. SKIN: No rashes. Assessment and plan 1 possible pulmonary embolism right lower lung barajas: Patient will be started on Eliquis pulmonary will be consulted echocardiogram will be obtained will send a prescription to pharmacy to evaluate for the coverage for Eliquis -Morbid obesity restrictive lung disease sleep apnea -shortness of breath secondary to PE as well as possible restrictive lung disease -Gastroesophageal reflux disease -Seizure disorder DVT prophylaxis: IV heparin is being discontinued and patient is being started on Eliquis Past Medical History Past Medical History: Asthma, GERD/Reflux, Osteoarthritis (OA), Seizure Disorder Additional Past Medical History / Comment(s): "having difficulty swallowing and vomiting",Abdominal pain, back pain, hiatal hernia, anemia. 05/12/17: Dr. Ambrocio reports that the patient has a history of having periods of unre sponsiveness as well as a history of a positive vaso-vagal response. History of Any Multi-Drug Resistant Organisms: None Reported Past Surgical History: Bariatric Surgery, Section, Cholecystectomy, Hernia Repair Additional Past Surgical History / Comment(s): 10/05/16 EGD, sleeve gastrectomy 07/25/13, lysis of adhesions abd, hiatel hernia, EGD 05/11/17.gastric bypass 08-09-17 surgery to remove lesions Past Anesthesia/Blood Transfusion Reactions: No Reported Reaction Additional Past Anesthesia/Blood Transfusion Reaction / Comment(s): Difficult IV start. Past Psychological History: Anxiety, Bipolar, Depression Smoking Status: Never smoker Past Alcohol Use History: None Reported Past Drug Use History: None Reported - Past Family History Mother Family Medical History: Renal Disease Additional Family Medical History / Comment(s): Mother of kidney disease. Medications and Allergies Home Medications Medication Instructions Recorded Confirmed Type OXcarbazepine [Trileptal] 300 mg PO TID 10/25/19 08/09/21 History Acetaminophen [Tylenol Arthritis] 650 mg PO TID 08/09/21 08/09/21 History Apixaban [Eliquis Starter Pack 0 mg PO DIRECTED 30 Days #1 pack 08/09/21 Rx (for VTE)] Gabapentin [Neurontin] 400 mg PO TID 08/09/21 08/09/21 History Allergies Allergy/AdvReac Type Severity Reaction Status Date / Time amoxicillin Allergy Unknown Verified 08/09/21 09:09 ibuprofen [From Motrin] Allergy Anaphylaxis Verified 08/09/21 09:09 iron Allergy Anaphylaxis Verified 08/09/21 09:09 to Venofer Penicillins Allergy Unknown Verified 08/09/21 09:09 tramadol Allergy Anaphylaxis Verified 08/09/21 09:09 Physical Exam Vitals: Vital Signs Temp Pulse Resp BP Pulse Ox 08/09/21 08:00 93 22 101/71 97 08/09/21 04:00 99 24 129/63 95 08/09/21 02:43 84 08/09/21 02:33 80 08/09/21 01:05 99 18 106/71 97 08/08/21 21:16 98.7 F 104 H 26 H 127/79 96 Intake and Output 08/08/21 08/09/21 08/09/21 22:59 06:59 14:59 Other: Weight 142.882 kg Results CBC & Chem 7: 08/09/21 02:15 08/09/21 02:15 Labs: Abnormal Lab Results - Last 24 Hours (Table) 08/09/21 Range/Units 02:15 Glucose 120 H (74-99) mg/dL AST 42 H (14-36) U/L ALT 42 H (4-34) U/L
[2021-08-09] MEDS: OXcarbazepine 300 MG TAB PO SCH ×3 (13:01→20:16)
[2021-08-09] MEDS: APIXABAN 5 MG TAB PO SCH ×2 (13:01→20:16)
--- NOTE | 2021-08-09 14:01 | ECHOF ---
Referral Reason:PE MEASUREMENTS -------- HEIGHT: 177.8 cm WEIGHT: 142.9 kg BP: 129/63 RVIDd: 3.8 cm (< 3.3) IVSd: 1.3 cm (0.6 - 1.1) LVIDd: 3.8 cm (3.9 - 5.3) LVPWd: 1.4 cm (0.6 - 1.1) IVSs: 1.4 cm LVIDs: 2.7 cm LVPWs: 2.1 cm LAESV Index (A-L): 12.57 ml/m Ao Diam: 2.5 cm (2.0 - 3.7) AV Cusp: 1.8 cm (1.5 - 2.6) MV EXCURSION: 19.892 mm (> 18.000) MV EF SLOPE: 87 mm/s (70 - 150) EPSS: 0.6 cm MV E Jamar: 0.75 m/s MV DecT: 141 ms MV A Jamar: 0.58 m/s MV E/A Ratio: 1.28 RAP: 5.00 mmHg RVSP: 56.53 mmHg TAPSE: 27.73 mm FINDINGS -------- Sinus rhythm. This was a technically adequate study. The left ventricular size is normal. There is mild concentric left ventricular hypertrophy. Overa ll left ventricular systolic function is low-normal with, an EF between 50 - 55 %. The right ventricle is mild to moderately enlarged. Normal LA size by volume 22+/-6 ml/m2. The right atrium was not well visualized. Possible PFO The aortic valve is trileaflet and appears structurally normal. There is no evidence of aortic regu rgitation. There is no evidence of aortic stenosis. There is trace mitral regurgitation. Moderate to severe tricuspid regurgitation present. There is severe pulmonary hypertension. The r ight ventricular systolic pressure, as measured by Doppler, is 56.53mmHg. There is no pulmonic regurgitation present. The aortic root size is normal. IVC Not well visulized. There is no pericardial effusion. CONCLUSIONS -------- 1. The left ventricular size is normal. 2. There is mild concentric left ventricular hypertrophy. 3. Overall left ventricular systolic function is low-normal with, an EF between 50 - 55 %. 4. The right ventricle is mild to moderately enlarged. 5. Possible PFO 6. There is trace mitral regurgitation. 7. Moderate to severe tricuspid regurgitation present. 8. There is severe pulmonary hypertension. 9. The right ventricular systolic pressure, as measured by Doppler, is 56.53mmHg. SCIENTIST: Melinda Mccoy RDCS
--- NOTE | 2021-08-09 14:51 | CONS ---
CONSULTATION CHIEF COMPLAINT: Chest and upper abdominal discomfort. Lety is a 35-year-old lady with morbid obesity and prior history of weight loss surgery who also carries a history of asthma and uses an inhaler on a p.r.n. basis. She presented to hospital with severe shortness of breath that was progressively getting worse. She does not have any chest pain, leg edema, PND or orthopnea. There is no prior history of coronary artery disease, congestive heart failure or valvular heart disease. Because of her shortness of breath and chest pain, she underwent a CT scan of the chest with contrast that showed right lower lobe pulmonary embolism. She also had a V/Q scan that showed an intermediate probability for PE and is currently on IV heparin and is being switched to Eliquis. We have been consulted for the same. Patient does not seem to be in respiratory distress. She is hemodynamically stable. I do not have an EKG. PAST MEDICAL HISTORY: Negative for hypertension, diabetes, dyslipidemia. Significant for morbid obesity. MEDICATIONS: Medications at home included Neurontin, Trileptal and Tylenol. ALLERGIES: AMOXICILLIN, MOTRIN, IRON, PENICILLIN AND TRAMADOL. FAMILY HISTORY: Negative for premature coronary artery disease. SOCIAL HISTORY: Negative for smoking, EtOH abuse or drug abuse. REVIEW OF SYSTEMS: HEENT is unremarkable. CARDIAC: As described above. RESPIRATORY: As described above. GI: Negative. GENITOURINARY: Negative. ALLERGY/IMMUNOLOGY: Negative. SKIN: Negative. MUSCULOSKELETAL: Negative. ENDOCRINE: Negative. DERMATOLOGY: Negative. CONSTITUTIONAL: Negative. ONCOLOGICAL: Negative. ASSOCIATE PROPERTY MANAGER: Negative. Rest of the system review is not relevant. PHYSICAL EXAMINATION: Heart rate is 90 beats per minute. Blood pressure , respiratory rate 18, O2 saturation is 97% on 2 L. There is no jugular venous distention. Carotid upstroke is diminished. There is no bruit. Chest exam reveals good air entry bilaterally. Heart exam reveals first and second heart sounds. No gallop. No murmur. No rub. Abdomen is soft, nontender. Examination of extremities did not reveal any edema. Peripheral pulses are felt. LABS: Hemoglobin is 13.9, platelet count is 287. 4.4 creatinine is 0.6. Coronavirus is negative. CT chest is abnormal. ASSESSMENT: Shortness of breath secondary to acute pulmonary embolism. PLAN: I agree with the Eliquis. I will review the echocardiogram. Thank you for letting us to participate in the care of this pleasant lady. RYNE / JUSTON: [phone] /
--- NOTE | 2021-08-09 17:33 | P.CNPUL ---
History of Present Illness Consult date: 08/09/21 Reason for consult: pulmonary embolism History of present illness: 35-year-old female patient, presented to the hospital because of some shortness of breath and pain along the right lateral part of the chest. No fever. No chills. The pain was worse with decreased patient was having underlying pleurisy. The patient is morbidly obese and she carries a BMI of 45. CT angiogram that was done in the burst department showed evidence of a right lower lobe pulmonary embolism. A VQ scan was also ordered that was of intermediate probability. The patient was started on IV heparin. She is currently on 2 L of oxygen by nasal cannula with a pulse is a 96%. She is afebrile. She is hemodynamically stable. She is admitted to the medical floor. Comorbid conditions include morbid obesity, obstructive sleep apnea, seizure disorder, bronchial asthma and the patient has undergone previously gastrectomy/bariatric surgery for morbid obesity. This surgery was done back in 07/25/2013. Subsequently, the patient underwent gastric bypass surgery on 08/09/2017. Review of Systems CONSTITUTIONAL: No fever, no malaise, no fatigue. HEENT: No recent visual problems or hearing problems. Denied any sore throat. CARDIOVASCULAR: No orthopnea, PND, no palpitations, no syncope. PULMONARY: No shortness of breath, no cough, no hemoptysis. GASTROINTESTINAL: No diarrhea, no nausea, no vomiting, no abdominal pain. NEUROLOGICAL: No headaches, no weakness, no numbness. HEMATOLOGICAL: Denies any bleeding or petechiae. GENITOURINARY: Denies any burning micturition, frequency, or urgency. MUSCULOSKELETAL/RHEUMATOLOGICAL: Denies any joint pain, swelling, or any muscle pain. ENDOCRINE: Denies any polyuria or polydipsia. The rest of the 14-point review of systems is negative. Past Medical History Past Medical History: Asthma, GERD/Reflux, Osteoarthritis (OA), Seizure Disorder Additional Past Medical History / Comment(s): "having difficulty swallowing and vomiting",Abdominal pain, back pain, hiatal hernia, anemia. 05/12/17: Dr. Ambrocio reports that the patient has a history of having periods of unresponsiveness as well as a history of a positive vaso-vagal response. History of Any Multi-Drug Resistant Organisms: None Reported Past Surgical History: Bariatric Surgery, Section, Cholecystectomy, Hernia Repair Additional Past Surgical History / Comment(s): 10/05/16 EGD, sleeve gastrectomy 07/25/13, lysis of adhesions abd, hiatel hernia, EGD 05/11/17.gastric bypass 08-09-17 surgery to remove lesions Past Anesthesia/Blood Transfusion Reactions: No Reported Reaction Additional Past Anesthesia/Blood Transfusion Reaction / Comment(s): Difficult IV start. Past Psychological History: Anxiety, Bipolar, Depression Additional Psychological History / Comment(s): . Smoking Status: Never smoker Past Alcohol Use History: None Reported Additional Past Alcohol Use History / Comment(s): Pt states she started smoking as a teen and only smokes on days where her stress level is high. Past Drug Use History: None Reported Additional Drug Use History / Comment(s): . - Past Family History Mother Family Medical History: Renal Disease Additional Family Medical History / Comment(s): Mother of kidney disease. Medications and Allergies Home Medications Medication Instructions Recorded Confirmed Type OXcarbazepine [Trileptal] 300 mg PO TID 10/25/19 08/09/21 History Acetaminophen [Tylenol Arthritis] 650 mg PO TID 08/09/21 08/09/21 History Apixaban [Eliquis Starter Pack 0 mg PO DIRECTED 30 Days #1 pack 08/09/21 Rx (for VTE)] Gabapentin [Neurontin] 400 mg PO TID 08/09/21 08/09/21 History Allergies Allergy/AdvReac Type Severity Reaction Status Date / Time amoxicillin Allergy Unknown Verified 08/09/21 09:09 ibuprofen [From Motrin] Allergy Anaphylaxis Verified 08/09/21 09:09 iron Allergy Anaphylaxis Verified 08/09/21 09:09 to Venofer Penicillins Allergy Unknown Verified 08/09/21 09:09 tramadol Allergy Anaphylaxis Verified 08/09/21 09:09 Physical Exam Vitals: Vital Signs Temp Pulse Pulse Resp BP BP Pulse Ox 08/09/21 12:00 98.2 F 84 19 122/60 96 08/09/21 08:00 93 22 101/71 97 08/09/21 04:00 99 24 129/63 95 08/09/21 02:43 84 08/09/21 02:33 80 08/09/21 01:05 99 18 106/71 97 08/08/21 21:16 98.7 F 104 H 26 H 127/79 96 Intake and Output 08/08/21 08/09/21 08/09/21 22:59 06:59 14:59 Intake Total 195.5 Balance 195.5 Intake: Intake, IV Titration 195.5 Amount Heparin Sod,Pork in 0.45% 195.5 NaCl 25,000 unit In 0.45 % NaCl 1 250ml.bag @ 16. 0972 UNITS/KG/HR 23 mls/ hr IV .[id number] [facility] Rx#: [id number] Other: Voiding Method Toilet Weight 142.882 kg 142.882 kg GENERAL: The patient is alert and oriented x3, not in any acute distress. Morbidly obese, the body mass index is 45.2. She is resting comfortably in bed is on 2 L of oxygen by nasal cannula. HEENT: Pupils are round and equally reacting to light. EOMI. No scleral icterus. No conjunctival pallor. Normocephalic, atraumatic. No pharyngeal erythema. No thyromegaly. CARDIOVASCULAR: S1 and S2 present. No murmurs, rubs, or gallops. PULMONARY: Chest is clear to auscultation, no wheezing or crackles. There is marked diminished breath sounds in lung bases bilaterally especially in the right lung base. No wheezes. No rhonchi. ABDOMEN: Soft, nontender, nondistended, normoactive bowel sounds. No palpable organomegaly. MUSCULOSKELETAL: No joint swelling or deformity. EXTREMITIES: No cyanosis, clubbing, or pedal edema. NEUROLOGICAL: Gross neurological examination did not reveal any focal deficits. Examination of the skin revealed no evidence of significant rashes, suspicious appearing nevi or other concerning lesions. Results - Laboratory Findings CBC and BMP: 08/09/21 02:15 08/09/21 02:15 Abnormal lab findings: Abnormal Labs 08/09/21 08/09/21 02:15 11:32 APTT 57.2 H Glucose 120 H AST 42 H ALT 42 H Assessment and Plan Plan: 1 acute unprovoked pulmonary embolism. The patient presented with pleuritic right-sided chest/right lower quadrant pain and subsequently the patient was found to have a suspicious pulmonary embolism in the right lower lobe pulmonary artery branch. Please refer to the CT angiogram. Currently on IV heparin. Doppler of the lower extremities to follow 2 shortness of breath and pleuritic chest pain secondary to above 3 morbid obesity with previous bariatric surgery involving the skin gastrectomy 2014 and gastric bypass surgery in 2017. Current BMI 45.2 4 mild intermittent bronchial asthma 5 seizure disorder 6 acid reflux 7 hypertension 8 osteoarthritis Plan Doppler of the lower extremity is to be ordered. And to coagulation with Eliquis 10 mg by mouth twice a day has been initiated on IV heparin has been discontinued Obtain a 2-D echocardiogram to evaluate LV function and RV dysfunction to be ruled out Monitor the oxygenation titrated oxygen flow to maintain a saturation above 90% We'll continue to follow
[2021-08-09] MEDS: GABAPENTIN 400 MG CAP PO SCH ×2 (17:46→20:16)
[2021-08-09] MEDS: HYDROcodone/APAP 7.5-325MG 1 EACH TAB PO PRN (17:48)
[2021-08-09] MEDS: IPRATROPIUM-ALBUTEROL 3 ML NEB INHALATION PRN (20:56)
--- NOTE | 2021-08-09 23:02 | US ---
EXAMINATION TYPE: US venous doppler duplex LE BI DATE OF EXAM: 08/09/2021 6:19 PM COMPARISON: NONE CLINICAL HISTORY: PE. PE SIDE PERFORMED: Bilateral TECHNIQUE: The lower extremity deep venous system is examined utilizing real time linear array sonog brenda with graded compression, doppler sonography and color-flow sonography. VESSELS IMAGED: Common Femoral Vein Deep Femoral Vein Greater Saphenous Vein * Femoral Vein Popliteal Vein Small Saphenous Vein * Proximal Calf Veins (* superficial vessels) *technical limitations due to patient's body habitus Right Leg: ++Positive for DVT right popliteal vein Left Leg: no evidence of DVT as visualized IMPRESSION: No evidence of deep vein thrombosis in the left leg. There is deep vein thrombosis in the right leg popliteal vein which appears acute.
[2021-08-10] MEDS: GABAPENTIN 400 MG CAP PO SCH ×3 (08:47→21:08)
[2021-08-10] MEDS: OXcarbazepine 300 MG TAB PO SCH ×3 (08:47→21:08)
[2021-08-10] MEDS: APIXABAN 5 MG TAB PO SCH ×2 (08:47→21:08)
[2021-08-10 08:56] LABS: HCT 39.6 % (34.0-46.0); HGB 13.6 gm/dL (11.4-16.0); Hypochromasia Marked; MCH 30.2 pg (25.0-35.0); MCHC 34.3 g/dL (31.0-37.0); Mean Platelet Volume 8.3; Platelet Count 182 k/uL (150-450); RBC 4.49 m/uL (3.80-5.40)
[2021-08-10 08:57] LABS: ALT 56 U/L (4-34); African American GFR (CKD) >90 (>60 ml/min/1.73 sqM); Anion Gap 5 mmol/L; Blood Urea Nitrogen 12 mg/dL (7-17); Calcium 8.4 mg/dL (8.4-10.2); Carbon Dioxide 26 mmol/L (22-30); Chloride 104 mmol/L (98-107); Glucose 97 mg/dL (74-99); Non-African American GFR(CKD) >90 (>60 ml/min/1.73 sqM); Sodium 135 mmol/L (137-145); Total Bilirubin 0.9 mg/dL (0.2-1.3)
[2021-08-10 08:58] LABS: MCV 88.3 fL (80.0-100.0)
[2021-08-10 09:15] LABS: Albumin 3.7 g/dL (3.5-5.0); Potassium 5.7 mmol/L (3.5-5.1); Total Protein 7.6 g/dL (6.3-8.2)
[2021-08-10 09:16] LABS: AST 65 U/L (14-36); Alkaline Phosphatase 90 U/L (38-126)
[2021-08-10 09:27] LABS: Band Neutrophils % 1 %; Eosinophils # (M) 0.15 k/uL (0-0.7); Lymphocytes # (M) 1.95 k/uL (1.0-4.8); Monocytes # (M) 0.15 k/uL (0-1.0); Neutrophils % (M) 54 %; Nucleated Red Blood Cells 0 /100 WBC (0-0); Total Cells Counted 100
[2021-08-10 09:29] LABS: Poikilocytosis (M) Present
--- NOTE | 2021-08-10 13:30 | P.DS ---
Providers Date of admission: 08/09/21 04:11 Attending physician: Elayne Beauchamp Consults: 08/09/21 04:12 Consult Physician Routine Consulting Provider: Liana Grajeda Consult Reason/Comments: ECHO,PE Do you want consulting provider notified?: Yes 08/09/21 11:49 Consult Physician Routine Consulting Provider: Oskar Fisher Consult Reason/Comments: Possible PE Do you want consulting provider notified?: Yes Primary care physician: Stated None Hospital Course: Patient is a 35-year-old female came in with the complaints of right-sided upper abdominal pain along with shortness of breath progressively getting worse last few days patient is morbidly obese not checked ambulatory at home. Patient denied any fever chills patient was also having some pain in the shoulder area can't take a deep breath. Patient had a CT angios the chest which showed possibility of right sided pulmonary emboli a VQ scan was done as well which was indeterminate. Patient does have history of sleep apnea although noncompliant with CPAP machine. Patient had history of some can of bariatric surgery in the past without any significant weight loss 10/11/2020 Patient doesn't have any right ventricular strain patient is presently medically stable. Patient to temporally may require oxygen patient will be evaluated for home O2. Patient the most probably will be discharged on the oxygen after home O2 evaluation patient will follow-up closely with PCP and pulmonary as an outpatient. PHYSICAL EXAMINATION: GENERAL: The patient is alert and oriented x3, not in any acute distress. Morbidly obese HEENT: Pupils are round and equally reacting to light. EOMI. No scleral icterus. No conjunctival pallor. Normocephalic, atraumatic. No pharyngeal erythema. No thyromegaly. CARDIOVASCULAR: S1 and S2 present. No murmurs, rubs, or gallops. PULMONARY: Chest is clear to auscultation, no wheezing or crackles. ABDOMEN: Soft, nontender, nondistended, normoactive bowel sounds. No palpable organomegaly. MUSCULOSKELETAL: No joint swelling or deformity. EXTREMITIES: No cyanosis, clubbing, or pedal edema. NEUROLOGICAL: Gross neurological examination did not reveal any focal deficits. SKIN: No rashes. Assessment and plan 1 possible pulmonary embolism right lower lung barajas: Patient in discharged on on Eliquis -Morbid obesity restrictive lung disease sleep apnea -shortness of breath secondary to PE as well as possible restrictive lung disease -Gastroesophageal reflux disease -Seizure disorder Patient Condition at Discharge: Serious Plan - Discharge Summary Discharge Rx Participant: No New Discharge Prescriptions: New traMADol HCL [Ultram] 50 mg PO Q4HR PRN 3 Days #18 tab PRN Reason: Pain Apixaban [Eliquis Starter Pack (for VTE)] 0 mg PO DIRECTED 30 Days #1 pack Continue OXcarbazepine [Trileptal] 300 mg PO TID Gabapentin [Neurontin] 400 mg PO TID Acetaminophen [Tylenol Arthritis] 650 mg PO TID Discharge Medication List OXcarbazepine [Trileptal] 300 mg PO TID 10/25/19 [History] Acetaminophen [Tylenol Arthritis] 650 mg PO TID 08/09/21 [History] Apixaban [Eliquis Starter Pack (for VTE)] 0 mg PO DIRECTED 30 Days #1 pack 08/09/21 [Rx] Gabapentin [Neurontin] 400 mg PO TID 08/09/21 [History] traMADol HCL [Ultram] 50 mg PO Q4HR PRN 3 Days #18 tab 08/10/21 [Rx] Follow up Appointment(s)/Referral(s): None,Stated [Primary Care Provider] - 1-2 days Oskar Fisher MD [STAFF PHYSICIAN] - 1 Week Ambulatory/Diagnostic Orders: Comprehensive Metabolic Panel [LAB.AMB] Time Frame: 2 Days, Location: None Selected Discharge Disposition: HOME SELF-CARE
--- NOTE | 2021-08-10 14:47 | P.PN ---
Subjective Progress Note Date: 08/10/21 35-year-old morbidly obese female patient with a BMI 57. The patient was seen yesterday because of pleuritic chest pain and further diagnosis of pulmonary embolism was established based on the CAT scan of the chest. CT angiogram was positive for a right lower lobe pulmonary embolism. The patient was started on IV heparin. Doppler of the right extremity further showed a right popliteal DVT. This was acute and the patient is doing well for now. No chest pain. No pleurisy. No hemoptysis. The patient will be taken off the IV heparin and started on oral anticoagulation. No hemoptysis. No pleurisy. No other significant events overnight. The patient is currently on 2 L about 2 by nasal cannula with a pulse ox of 91%. She is afebrile. She is hemodynamically stable. Breathing is nonlabored. Objective - Vital Signs Vital signs: Vital Signs Temp 98.0 F 08/10/21 12:00 Pulse 92 08/10/21 12:00 Resp 18 08/10/21 12:00 BP 126/60 08/10/21 12:00 Pulse Ox 91 L 08/10/21 12:00 Intake & Output 08/09/21 08/10/21 08/10/21 18:59 06:59 18:59 Intake Total 195.5 250 420 Balance 195.5 250 420 Weight 142.882 kg 182 kg Intake: Intake, IV Titration 195.5 Amount Heparin Sod,Pork in 0.45% 195.5 NaCl 25,000 unit In 0.45 % NaCl 1 250ml.bag @ 16. 0972 UNITS/KG/HR 23 mls/ hr IV .[id number] [facility] Rx#: [id number] Oral 250 420 Other: Voiding Method Toilet Toilet Toilet # Voids 1 - Exam GENERAL: The patient is alert and oriented x3, not in any acute distress. Morbidly obese, the body mass index is 45.2. She is resting comfortably in bed is on 2 L of oxygen by nasal cannula. HEENT: Pupils are round and equally reacting to light. EOMI. No scleral icterus. No conjunctival pallor. Normocephalic, atraumatic. No pharyngeal erythema. No thyromegaly. CARDIOVASCULAR: S1 and S2 present. No murmurs, rubs, or gallops. PULMONARY: Chest is clear to auscultation, no wheezing or crackles. There is marked diminished breath sounds in lung bases bilaterally especially in the right lung base. No wheezes. No rhonchi. ABDOMEN: Soft, nontender, nondistended, normoactive bowel sounds. No palpable organomegaly. MUSCULOSKELETAL: No joint swelling or deformity. EXTREMITIES: No cyanosis, clubbing, or pedal edema. NEUROLOGICAL: Gross neurological examination did not reveal any focal deficits. Examination of the skin revealed no evidence of significant rashes, suspicious appearing nevi or other concerning lesions. - Labs CBC & Chem 7: 08/10/21 07:16 08/10/21 07:16 Labs: Abnormal Lab Results - Last 24 Hours (Table) 08/10/21 Range/Units 07:16 Sodium 135 L (137-145) mmol/L Potassium 5.7 H (3.5-5.1) mmol/L AST 65 H (14-36) U/L ALT 56 H (4-34) U/L Assessment and Plan Plan: 1 acute unprovoked pulmonary embolism. The patient presented with pleuritic right-sided chest/right lower quadrant pain and subsequently the patient was found to have a suspicious pulmonary embolism in the right lower lobe pulmonary artery branch. Please refer to the CT angiogram. Currently on IV heparin. Patient was also diagnosed having a right lower extremity popliteal DVT. Currently on IV heparin. 2 shortness of breath and pleuritic chest pain secondary to above 3 morbid obesity with previous bariatric surgery involving the skin gastrectomy 2014 and gastric bypass surgery in 2017. Current BMI 45.2 4 mild intermittent bronchial asthma 5 seizure disorder 6 acid reflux 7 hypertension 8 osteoarthritis 9 right lower extremity popliteal DVT Plan This continued IV heparin and put the patient on oral anticoagulation with Eliquis. The echocardiogram showed a preserved LV function with an ejection fraction of 50-55%. The patient has questionable PFO. The patient also has bothered severe pulmonary hypertension, previous probably chronic knowing that she has obvious features of sleep apnea and obesity hypoventilation syndrome. Furthermore, the patient would be potentially chronically hypoxic. Her PA pressure estimated to be around 66. Monitor the oxygenation titrated oxygen flow to maintain a saturation above 90%, currently on 2 L We'll continue to follow, possible discharge home today on oxygen at 2 L and the patient can be seen on outpatient basis in my office patient will need a sleep evaluation. She will need to continue anticoagulation for now. Clear for discharge follow pulmonary standpoint.
[2021-08-10] MEDS: HYDROcodone/APAP 7.5-325MG 1 EACH TAB PO PRN (15:27)
--- NOTE | 2021-08-10 15:32 | P.PN ---
Subjective Progress Note Date: 08/10/21 This is a 35-year-old female admitted with pulmonary embolism of the right lower lobe. Patient is resting in bed in no acute distress on 2 L nasal cannula. Patient continues to have shortness of breath and lower right-sided chest pain with activity. Patient states her shortness of breath and chest pain has improved since she came into the hospital. Patient is on Eliquis for anticoagulation. Patient had a Doppler which revealed positive for right lower extremity DVT. Patient underwent an echocardiogram which showed a normal LV function with an ejection fraction of 50-55%. Moderate to severe tricuspid regurgitation and possible PFO. Patient's potassium today is 5.7, her AST is elevated at 65, and ALT 56. Patient's blood pressure is 126/60, heart rate is 92, respirations 18, 90% on 2 L nasal cannula, and afebrile. Objective - Vital Signs Vital signs: Vital Signs Temp 98.0 F 08/10/21 12:00 Pulse 92 08/10/21 12:00 Resp 18 08/10/21 12:00 BP 126/60 08/10/21 12:00 Pulse Ox 91 L 08/10/21 12:00 Intake & Output 08/09/21 08/10/21 08/10/21 18:59 06:59 18:59 Intake Total 195.5 250 420 Balance 195.5 250 420 Weight 142.882 kg 182 kg Intake: Intake, IV Titration 195.5 Amount Heparin Sod,Pork in 0.45% 195.5 NaCl 25,000 unit In 0.45 % NaCl 1 250ml.bag @ 16. 0972 UNITS/KG/HR 23 mls/ hr IV .[id number] [facility] Rx#: [id number] Oral 250 420 Other: Voiding Method Toilet Toilet Toilet # Voids 1 - Exam PHYSICAL EXAMINATION: Vital signs reviewed HEART: S1, S2 normal. No murmur, no gallop. Regular rate and rhythm. LUNGS: Clear to auscultation. NECK: Supple. ABDOMEN: Soft, non-tender, positive bowel sounds. EXTREMITIES: 2+ peripheral pulses, no edema. - Labs CBC & Chem 7: 08/10/21 07:16 08/10/21 07:16 Labs: Abnormal Lab Results - Last 24 Hours (Table) 08/09/21 08/10/21 Range/Units 11:32 07:16 APTT 57.2 H (22.0-30.0) sec Sodium 135 L (137-145) mmol/L Potassium 5.7 H (3.5-5.1) mmol/L AST 65 H (14-36) U/L ALT 56 H (4-34) U/L Assessment and Plan Assessment: Shortness of breath secondary to acute pulmonary embolism Right lower extremity DVT Moderate to severe tricuspid regurgitation diagnosed by echo Possible PFO on Echo Hyperkalemia Plan: Continue with current cardiac meds Will continue to monitor PFO, no intervention needed at this time Continue with Eliquis for anticoagulation Continue to monitor hyperkalemia, recheck potassium tomorrow morning Continue with accurate I's and O's Further recommendations pending patient course
[2021-08-10] MEDS: IPRATROPIUM-ALBUTEROL 3 ML NEB INHALATION PRN (20:44)
[2021-08-11 01:46] VITALS: RESP 18
[2021-08-11] MEDS: OXcarbazepine 300 MG TAB PO SCH (08:26)
[2021-08-11] MEDS: GABAPENTIN 400 MG CAP PO SCH (08:26)
[2021-08-11] MEDS: APIXABAN 5 MG TAB PO SCH (08:26)
[2021-08-11 10:28] LABS: African American GFR (CKD) >90 (>60 ml/min/1.73 sqM); Anion Gap 9 mmol/L; Blood Urea Nitrogen 8 mg/dL (7-17); Calcium 8.4 mg/dL (8.4-10.2); Carbon Dioxide 26 mmol/L (22-30); Chloride 103 mmol/L (98-107); Glucose 124 mg/dL (74-99); Non-African American GFR(CKD) >90 (>60 ml/min/1.73 sqM); Sodium 138 mmol/L (137-145)
--- NOTE | 2021-08-11 11:05 | P.PN ---
Subjective Progress Note Date: 08/11/21 Principal diagnosis: Pulmonary embolism This is a 35-year-old female patient who is morbidly obese was admitted to the hospital with pulmonary embolism involving the right lower lobe. She also was found to have right lower extremity DVT. She was seen this morning. She continues to have mild pleuritic chest discomfort. Hemodynamically she is stable. She underwent an echo which revealed only mild to moderate enlarged right ventricle. She denies any dizziness or lightheadedness or presyncope or syncope. She continues to be on oxygen and she potentially need to go home on oxygen. Objective - Vital Signs Vital signs: Vital Signs Temp 97.3 F L 08/11/21 08:25 Pulse 93 08/11/21 08:25 Resp 18 08/11/21 08:25 BP 132/77 08/11/21 08:25 Pulse Ox 94 L 08/11/21 08:25 Intake & Output 08/10/21 08/11/21 08/11/21 18:59 06:59 18:59 Intake Total 660 180 Balance 660 180 Weight 186 kg Intake: Oral 660 180 Other: Voiding Method Toilet Toilet Toilet # Voids 2 1 0 # Bowel Movements 0 - Constitutional General appearance: Present: no acute distress - Respiratory Respiratory: bilateral: diminished - Cardiovascular Rhythm: regular Heart sounds: normal: S1, S2 - Labs CBC & Chem 7: 08/10/21 07:16 08/11/21 07:59 Labs: Abnormal Lab Results - Last 24 Hours (Table) 08/11/21 Range/Units 07:59 Glucose 124 H (74-99) mg/dL Assessment and Plan Assessment: Assessment #1 right lower extremity DVT #2 pulmonary embolism #3 mild to moderate RV enlargement #4 morbid obesity Plan #1 the patient currently is on oral anticoagulation #2 continue oxygen for now #3 discharged in the next 12-24 hours
[2021-08-11 12:41] VITALS: BP 122/76; PULSE 89; TEMP 97.8
--- NOTE | 2021-08-11 13:52 | P.DS ---
Providers Date of admission: 08/09/21 04:11 Attending physician: Elayne Beauchamp Consults: 08/09/21 04:12 Consult Physician Routine Consulting Provider: Liana Grajeda Consult Reason/Comments: ECHO,PE Do you want consulting provider notified?: Yes 08/09/21 11:49 Consult Physician Routine Consulting Provider: Oskar Fisher Consult Reason/Comments: Possible PE Do you want consulting provider notified?: Yes Primary care physician: Stated None Hospital Course: Please refer to my discharge summary from yesterday for further details additionally, patient did not require any oxygen. Although patient is complaining of chest pain without oxygen. Patient will be given prescription for tramadol, patient will be discharged today on Eliquis PHYSICAL EXAMINATION: GENERAL: The patient is alert and oriented x3, not in any acute distress. Morbidly obese HEENT: Pupils are round and equally reacting to light. EOMI. No scleral icterus. No conjunctival pallor. Normocephalic, atraumatic. No pharyngeal erythema. No thyromegaly. CARDIOVASCULAR: S1 and S2 present. No murmurs, rubs, or gallops. PULMONARY: Chest is clear to auscultation, no wheezing or crackles. ABDOMEN: Soft, nontender, nondistended, normoactive bowel sounds. No palpable organomegaly. MUSCULOSKELETAL: No joint swelling or deformity. EXTREMITIES: No cyanosis, clubbing, or pedal edema. NEUROLOGICAL: Gross neurological examination did not reveal any focal deficits. SKIN: No rashes. Patient Condition at Discharge: Serious Plan - Discharge Summary Discharge Rx Participant: No New Discharge Prescriptions: New traMADol HCL [Ultram] 50 mg PO Q4HR PRN 3 Days #18 tab PRN Reason: Pain Apixaban [Eliquis Starter Pack (for VTE)] 0 mg PO DIRECTED 30 Days #1 pack Continue OXcarbazepine [Trileptal] 300 mg PO TID Gabapentin [Neurontin] 400 mg PO TID Acetaminophen [Tylenol Arthritis] 650 mg PO TID Discharge Medication List OXcarbazepine [Trileptal] 300 mg PO TID 10/25/19 [History] Acetaminophen [Tylenol Arthritis] 650 mg PO TID 08/09/21 [History] Apixaban [Eliquis Starter Pack (for VTE)] 0 mg PO DIRECTED 30 Days #1 pack 08/09/21 [Rx] Gabapentin [Neurontin] 400 mg PO TID 08/09/21 [History] traMADol HCL [Ultram] 50 mg PO Q4HR PRN 3 Days #18 tab 08/10/21 [Rx] Follow up Appointment(s)/Referral(s): None,Stated [Primary Care Provider] - 1-2 days Oskar Fisher MD [STAFF PHYSICIAN] - 1 Week (Office closed. Call wednesday to schedule appoitment.) Ambulatory/Diagnostic Orders: Comprehensive Metabolic Panel [LAB.AMB] Time Frame: 2 Days, Location: None Selected Patient Instructions/Handouts: Pulmonary Embolism (IP) Discharge Disposition: HOME SELF-CARE
== END 2021-08-11 14:47 | disposition home or self-care (01) | DRG 176 ==
LOC: EC 19:07 → 3SCARD 08-09 04:11
PROVIDERS: ADMIT Hospitalist; ATTEND Hospitalist
DX: I26.99 Other pulmonary embolism without acute cor pulmonale (principal); I82.431 Acute embolism and thrombosis of right popliteal vein; Z68.43 Body mass index [BMI] 50.0-59.9, adult; Q21.1 Atrial septal defect; J45.20 Mild intermittent asthma, uncomplicated; E66.01 Morbid (severe) obesity due to excess calories; E87.5 Hyperkalemia; F31.9 Bipolar disorder, unspecified; F41.9 Anxiety disorder, unspecified; G40.909 Epilepsy, unspecified, not intractable, without status epilepticus; M19.90 Unspecified osteoarthritis, unspecified site; G47.30 Sleep apnea, unspecified; I07.1 Rheumatic tricuspid insufficiency; K21.9 Gastro-esophageal reflux disease without esophagitis; Z79.899 Other long term (current) drug therapy; Z91.19 Patient's noncompliance with other medical treatment and regimen; Z98.84 Bariatric surgery status; Z20.822 Contact with and (suspected) exposure to COVID-19; Z90.49 Acquired absence of other specified parts of digestive tract; Z98.890 Other specified postprocedural states; Z88.6 Allergy status to analgesic agent; Z88.5 Allergy status to narcotic agent; Z88.0 Allergy status to penicillin; Z88.8 Allergy status to other drugs, medicaments and biological substances
CPT/HCPCS: 36415; 71045; 71275; 78582; 80048; 80053; 82150; 83690; 84484; 85025; 85730; 87635; 93306; 93970; 94640; 96360; 96372; 99285

== ENCOUNTER → 2021-11-12 | Outpatient (CLI) | payer MEDICARE, OTHER ==
--- NOTE | 2021-11-12 10:45 | CT ---
EXAMINATION TYPE: CT angio chest DATE OF EXAM: 11/12/2021 COMPARISON: CT dated 08/09/2021 HISTORY: PE CT DLP: 630.5 mGy.cm. Automated Exposure Control for Dose Reduction was Utilized. TECHNIQUE AND CONTRAST: CTA scan of the thorax is performed with IV Contrast, patient injected with 100 mL of Isovue 370, pul [facility] angiogram protocol. MIP Images are created on CT scanner and reviewed. FINDINGS: Suboptimal CT scan with significant artifacts due to patient's body habitus. The previously described right lower lobe pulmonary artery embolus is not well identified today. Filling defect is seen withi n the right lower lobe lateral segmental and subsegmental branches, which could be artifactual howeve r acute or chronic pulmonary emboli cannot be excluded. No definite filling defect is seen within the pulmonary trunk, main pulmonary arteries, lobar and pro ximal segmental arteries. Distal segmental and subsegmental arteries cannot be properly assessed with small pulmonary emboli at that level cannot be excluded by this CT scan. The pulmonary trunk measure s 3.2 cm which may suggest pulmonary hypertension. Slightly dilated left atrium. Minimal atelectasis are seen in the right lower lobe. Subtle scattered groundglass opacities are also seen in the lower lobes, nonspecific. Unremarkable lungs otherwise. Patent central airways. No pleur al or pericardial effusion. Suspected left thyroid lobe calcification, please correlate with thyroid ultrasound results. No progressive lymphadenopathy in the chest, yet suboptimally assessed. Enlarged liver and spleen. Pr evious cholecystectomy. Previous gastric surgery. Old healed fracture of the left clavicle. [place] d fractures of the left ribs. IMPRESSION: Suboptimal CT scan as described above. The previously described filling defect in the right lower lob e pulmonary artery is not well appreciated today. Filling defects within the right lower lobe lateral segmental and subsegmental branches which could r epresent artifacts versus acute or chronic pulmonary emboli. No major or central pulmonary emboli. Distal segmental or subsegmental bilateral pulmonary emboli can not be excluded by this CT scan. Further V/Q scan can be considered if clinically required. Other inc idental findings as described above.
== END | disposition home or self-care (01) ==
LOC: RADCTMAIN 08:09
PROVIDERS: ATTEND Internal Medicine Critical Care Medicine
DX: I26.99 Other pulmonary embolism without acute cor pulmonale (principal)
CPT/HCPCS: 71275; Q9967